=== PATIENT | male | born 1945 | race Caucasian/White ===

== ENCOUNTER 2020-10-05 12:37 | Inpatient (IN) ==
[2020-10-05] MEDS ORDERED: ALBUT/IPRATROP 3MG/0.5MG NEB 3 ML VIAL NEB STA (13:16)
[2020-10-05] MEDS ORDERED: SODIUM CHLORIDE 0.9% 1000ML 500 ML IV ONE (13:16)
[2020-10-05] MEDS ORDERED: methylPREDNISolone 125 MG/2 ML VIAL IV STA (13:16)
[2020-10-05 13:38] LABS: Basophils # (auto) 0.01 K/uL (0-0.2); Basophils % (auto) 0.1 %; Eosinophils # (auto) 0.03 K/uL (0-0.5); Eosinophils % (auto) 0.3 %; Hematocrit (blood only) 40.1 % (42-52); Hemoglobin 13.7 g/dL (14.0-18.0); Immature Granulocytes # (auto) 0.03 K/uL (0.00-0.02); Immature Granulocytes % (auto) 0.3 %; Lymphocytes # (auto) 0.56 K/uL (1.2-3.4); Lymphocytes % (auto) 5.5 %; Mean Corpuscular Hemoglobin 33.3 pg (25-34); Mean Corpuscular Hgb Conc 34.2 g/dL (32-36); Mean Corpuscular Volume 97.6 fL (80-100); Mean Platelet Volume 12.9 fL (7.4-10.4); Monocytes # (auto) 0.94 K/uL (0.11-0.59); Monocytes % (auto) 9.2 %; Neutrophils % (auto) 84.6 %; Platelet Count 144 K/uL (130-400); RDW Coefficient of Variation 14.4 % (11.5-14.5); RDW Standard Deviation 51.4 fL (36.4-46.3); Red Blood Count 4.11 M/uL (4.7-6.1); White Blood Count 10.27 K/uL (4.8-10.8)
[2020-10-05 13:43] LABS: Base Excess VBG 4.8 mEq/L; pH VBG 7.43 (7.36-7.41)
[2020-10-05 13:57] LABS: BUN Creatinine Ratio 22.7 (10-20); Blood Urea Nitrogen 24 mg/dl (7-18); Calcium 9.6 mg/dl (8.5-10.1); Carbon Dioxide 29 mmol/L (21-32); Chloride 102 mmol/L (98-107); Creatinine Clr Calc Pharmacy 55.2 ml/min; Est GFR (African American) 80.9; Est GFR (Non-African American) 69.8; Glucose 286 mg/dl (70-99); Lipase 80 U/L (73-393); Magnesium 1.8 mg/dl (1.8-2.4); Potassium 3.5 mmol/L (3.5-5.1); Sodium 137 mmol/L (136-145)
[2020-10-05 13:58] LABS: INR 5.4 (0.9-1.1); Partial Thromboplastin Ratio 1.8; Prothrombin Time 47.7 Seconds (9.0-12.0)
[2020-10-05 14:00] LABS: Partial Thromboplastin Time 47.3 Seconds (21.0-31.0)
[2020-10-05 14:04] LABS: NT Pro B Type Natriuretic Pept 794 pg/ml (0-900); Troponin I < 0.015 ng/ml (0-0.045)
--- NOTE | 2020-10-05 14:05 | XRay Report ---
XR chest 1V portable CLINICAL HISTORY: Shortness of breath. COMPARISON STUDY: Chest radiograph July 16, 2020. FINDINGS: Median sternotomy wires are noted as well as a left atrial occluder device. There is no pne umothorax. Severe emphysema is present. Cardiac size is normal. Moderate left mid and lower lung airs pace opacity is present. There is also mild right basilar opacity. These have developed since prior e xam. IMPRESSION: 1. Interval development of bilateral airspace opacities, greater within the left lung. The findings f avor multifocal pneumonia. Radiographic follow-up to ensure resolution is recommended. 2. Emphysema. ACT 112: Negative or not required by law. Electronically signed by: Raffy Crespo M.D. 10/05/2020 2:03 PM
[2020-10-05 14:36] LABS: Influenza A virus by PCR Negative (Neg); Influenza B virus by PCR Negative (Neg); RSV by PCR Negative (Neg); SARS CoV2 RNA(COVID-19) InHosp NEGATIVE (Negative)
--- NOTE | 2020-10-05 14:36 | Emergency Department Note ---
History of Present Illness General Chief complaint: Shortness of Breath/Dyspnea Stated complaint: PNEUMONIA; REF BY Time Seen by Provider: 10/05/20 13:10 Source: patient and family () History of Present Illness Provider complaint: Difficulty breathing Onset (ago): day(s) 5 Maximum Pain Intensity: 7 Associated symptoms: + confusion, + shortness of breath and + weakness; no chest pain, no cough, no fever/chills, no headaches and no nausea/vomiting 74-year-old male presents emergency department for difficulty breathing. states that he has been having difficulty breathing since Thursday. states that the patient is requiring more oxygen. She states he has been using 6 L as opposed to his normal 4 L. She states he has been increasingly weak confused and had an unsteady gait. The states he is also been having polyuria. Patient reports no dysuria or chest pain. No fevers. Patient has received his vaccinations for COVID-19. Patient is on prednisone. Patient was seen by his mascara molder today and referred to the emergency department. Home Medications Medication Instructions Recorded Confirmed Type glucagon (human recombinant) 1 mg 1 mg SQ Q20M PRN #2 ea 02/02/20 10/05/20 Rx solution for injection aspirin 81 mg tablet,delayed 81 mg PO DAILY 02/10/20 10/05/20 History release Dexcom G6 Laminating Press Operator #1 ea NS 02/23/20 10/05/20 Rx Dexcom G6 Sensor #3 ea NS 02/23/20 10/05/20 Rx Dexcom G6 Transmitter #1 ea NS 02/23/20 10/05/20 Rx duloxetine 60 mg capsule,delayed 60 mg PO DAILY #90 cap 05/07/20 10/05/20 Rx release ciclopirox 0.77 % topical cream 1 applic TOPICAL BID #90 g 06/01/20 10/05/20 Rx sodium chloride 7 % for 4 ml INHALATION BID #240 ml 07/13/20 10/05/20 Rx nebulization dutasteride 0.5 mg capsule 0.5 mg PO DAILY #90 cap 07/25/20 10/05/20 Rx nystatin 100,000 unit/gram topical 1 applic TOPICAL BID #30 g 07/26/20 10/05/20 Rx cream nystatin 100,000 unit/mL oral 5 ml PO TID #480 ml 07/26/20 10/05/20 Rx suspension azelastine 137 mcg (0.1 %) nasal 1 spray INTRANASAL BID #3 btl 08/30/20 10/05/20 Rx spray aerosol atorvastatin 20 mg tablet 20 mg PO DAILY #90 tab 09/14/20 10/05/20 Rx pregabalin 200 mg capsule 200 mg PO TID #90 cap 09/17/20 10/05/20 Rx albuterol sulfate 2.5 mg INHALATION Q4H PRN #180 ml 09/28/20 10/05/20 Rx albuterol sulfate [ProAir HFA] 2 puff INH Q6H PRN 10/05/20 10/05/20 History insulin degludec [Tresiba 12 unit SQ HS 10/05/20 10/05/20 History FlexTouch U-100] insulin lispro [Humalog KwikPen 0 unit SUBCUT TID 10/05/20 10/05/20 History Insulin] prednisone 10 mg PO .DAILY/UD 10/05/20 10/05/20 History warfarin 4 mg PO 5XWK 10/05/20 10/05/20 History warfarin 6 mg PO 2XWK 10/05/20 10/05/20 History Allergies Allergy/AdvReac Type Severity Reaction Status Date / Time acetaminophen Allergy Intermediate panic Verified 10/05/20 16:00 [From Darvocet-N] attack propoxyphene Allergy Intermediate panic Verified 10/05/20 16:01 [From Darvocet-N] attack latex AdvReac Intermediate Rash Verified 10/05/20 16:01 Past Med/Surg History Medical History Abnormal weight loss Aortic stenosis Ascending aortic aneurysm Bicuspid aortic valve CAD (coronary artery disease) Chronic respiratory failure with hypoxia, on home oxygen therapy COPD (chronic obstructive pulmonary disease) Diabetes type 1, uncontrolled Diabetic peripheral neuropathy associated with type 1 diabetes mellitus Dysesthesia Dyslipidemia Fungal skin infection Hypertension 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 Smoking Squamous cell carcinoma of right ear Venous insufficiency Surgical History H/O mechanical aortic valve replacement History of hernia repair 2007 S/P ascending aortic aneurysm repair S/P CABG x 1 Family History Sister Breast cancer 3 sisters Colorectal cancer Brother COPD (chronic obstructive pulmonary disease) half brother Prostate cancer half brother Father Heart disease Myocardial infarction Daughter Diabetes Denies family history of Ovarian cancer Lung cancer Social History Smoking Status: Current every day smoker Tobacco Type: Cigarettes Age Started Using Tobacco: 20; Cigarettes Per Day: 2 cigars per day and pipe; Second Hand Exposure: Yes (daughter); Hx Alcohol Use: No Hx Substance Use: No Preferred Language: Senegalese Communication Ability: Effective Visual Impairment: Limited Hearing Ability: Normal Platform Mill Supervisor Required: No marital status: Current Living Situation: Spouse and Family Current Living Situation Comment: spouse and daughter current occupational status: retired How many Children do You have: 1 Feels Safe at Home: Yes Childhood Exposure to Second-Hand Smoke: No caffeine: Yes (coffee) Dental Care, Regularly: No Physical Activity Frequency: 3-4 Times per Week Seatbelt Use: always Sunscreen Use: No Review of Systems A total of 10 systems reviewed and were otherwise negative Physical Exam Vital Signs Vital Signs - 24 hr 10/05/20 12:49 10/05/20 13:20 10/05/20 13:30 Temperature 37.3 C 37.7 C H Temperature Source Skin Oral Pulse Rate 116 H 106 H Pulse Rate [Apical] Pulse Rhythm Regular Pulse Rhythm [Apical] Pulse Strength [Apical] Respiratory Rate 26 H 26 H Respiratory Effort / Characteristics Spontaneous Respiratory Depth Respiratory Pattern Blood Pressure 96/55 L Blood Pressure [Left Arm] Blood Pressure Mean 68 Blood Pressure Mean [Left Arm] Blood Pressure Position Sitting Pulse Oximetry 94 99 Oxygen Delivery Method Nasal Cannula Nasal Cannula Oxygen Flow Rate 6 6 Sepsis Recent Fever Within 48 Hours No Sepsis New/Unexplained Change in Mental Status N/A Sepsis Action Taken by Nursing No Action Required 10/05/20 13:39 10/05/20 13:49 10/05/20 15:11 Temperature Temperature Source Pulse Rate Pulse Rate [Apical] 104 H 98 H Pulse Rhythm Pulse Rhythm [Apical] Regular Pulse Strength [Apical] Normal Respiratory Rate 24 22 Respiratory Effort / Characteristics Non-Labored Spontaneous Spontaneous Accessory Muscle Use Respiratory Depth Normal Respiratory Pattern Regular Blood Pressure Blood Pressure [Left Arm] 118/59 L Blood Pressure Mean Blood Pressure Mean [Left Arm] 78 Blood Pressure Position Pulse Oximetry 95 96 92 Oxygen Delivery Method Nasal Cannula Nasal Cannula Nasal Cannula Oxygen Flow Rate 6 6 6 Sepsis Recent Fever Within 48 Hours Sepsis New/Unexplained Change in Mental Status Sepsis Action Taken by Nursing Physical Exam GENERAL: He is oriented to person, place, and time. He appears well-developed and well-nourished. He does not appear distressed. HENT: Exam performed. - Head: Normocephalic and atraumatic. - Right Ear: External ear normal. No mastoid tenderness. - Left Ear: External ear normal. No mastoid tenderness. - Mouth/Throat: The oropharynx is clear and moist. No trismus in the jaw. No dental abscesses or uvula swelling. No oropharyngeal exudate or tonsillar abscesses. EYES: Conjunctivae and EOM are normal. Pupils are equal, round, and reactive to light. Right eye exhibits no discharge. Left eye exhibits no discharge. No scleral icterus. NECK: Normal range of motion. Neck supple. No JVD present. No spinous process tenderness present. No carotid bruit present. No rigidity. No tracheal deviation and normal range of motion present. No Brudzinski's sign and no Kernig's sign noted. CV: Normal rate, regular rhythm, normal heart sounds and intact distal pulses. There is no peripheral edema. Palpable radial pulses bue. PULM/CHEST: Expiratory wheezes and rhonchi bilaterally. ABD: The abdomen is soft. Bowel sounds are normal. He has no distension. No mass is present. There is no tenderness. There is no rebound, no guarding, no Sanchez's sign and no tenderness at McBurney's point. Rovsig negative. MUSC/SKEL: Normal range of motion. There is no peripheral edema, tenderness or deformity. LYMPH: No cervical adenopathy. NEURO: He is alert and oriented to person, place, and time. He has normal strength. No cranial nerve deficit or sensory deficit. Coordination and gait normal. GCS eye subscore is 4. GCS verbal subscore is 5. GCS motor subscore is 6. Cerebellar tests wnl. SKIN: Skin is warm and dry. He is not diaphoretic. PSYCH: He has a normal mood and affect. Behavior is normal. Judgment and thought content normal. Course Course 1310: The patient was evaluated in room B11. A complete history and physical exam was performed Cardiac monitoring: An order was placed for continuous cardiac monitoring. The monitor shows a rate of 105 with sinus tachycardia rhythm 1520: Vital signs stable on 6 L nasal cannula. Patient's labs are within normal limits with the exception of a therapeutic INR of 5.4. Imaging does show mu ltifocal pneumonia. Covid and influenza swab negative. CT of the head negative. Urinalysis is still pending. Patient will be treated for commune acquired pneumonia with Rocephin and azithromycin. Patient does state he feels better after receiving IV steroids and DuoNeb. Given the patient's weakness and difficulty breathing, he will be admitted to the hospital. Hospitalist team Dr Rach Tran will be notified. Administered Medications Discontinued Medications Albuterol (Albut/Ipratrop 3mg/0.5mg Neb 3 Ml Vial) 3 ml NEB NOW STA Stop: 10/05/20 13:17 Last Admin: 10/05/20 13:48 Dose: 3 ml Documented by: [id number] Azithromycin (Azithromycin 250 Mg Tab) 500 mg PO NOW ONE Stop: 10/05/20 14:59 Last Admin: 10/05/20 15:27 Dose: 500 mg Documented by: [id number] Sodium Chloride (Nss 1000ml) 500 mls @ 999 mls/hr IV .Q31M ONE Stop: 10/05/20 13:46 Last Infusion: 10/05/20 14:20 Dose: 0 mls/hr Documented by: [id number] Admin: 10/05/20 13:47 Dose: 999 mls/hr Documented by: [id number] Ceftriaxone Sodium (Rocephin) 1,000 mg in 50 mls @ 100 mls/hr IV NOW STA Stop: 10/05/20 15:27 Last Admin: 10/05/20 15:27 Dose: 100 mls/hr Documented by: [id number] Methylprednisolone (Methylprednisolone 125 Mg/2 Ml Vial) 125 mg IV NOW STA Stop: 10/05/20 13:17 Last Admin: 10/05/20 13:47 Dose: 125 mg Documented by: [id number] Medical Decision Making Laboratory Data Result diagrams: 10/05/20 13:20 10/05/20 13:20 Lab Results 10/05/20 10/05/20 10/05/20 Range/Units 13:20 13:20 13:20 WBC 10.27 (4.8-10.8) K/uL RBC 4.11 L (4.7-6.1) M/uL Hgb 13.7 L (14.0-18.0) g/dL Hct 40.1 L (42-52) % MCV 97.6 (80-100) fL MCH 33.3 (25-34) pg MCHC 34.2 (32-36) g/dL RDW Std Deviation 51.4 H (36.4-46.3) fL RDW Coeff of Randolph 14.4 (11.5-14.5) % Plt Count 144 (130-400) K/uL MPV 12.9 H (7.4-10.4) fL Immature Gran % (Auto) 0.3 % Neut % (Auto) 84.6 % Lymph % (Auto) 5.5 % [place] % (Auto) 9.2 % Eos % (Auto) 0.3 % Baso % (Auto) 0.1 % Neut # (Auto) 8.70 H (1.4-6.5) K/uL Lymph # (Auto) 0.56 L (1.2-3.4) K/uL [place] # (Auto) 0.94 H (0.11-0.59) K/uL Eos # (Auto) 0.03 (0-0.5) K/uL Baso # (Auto) 0.01 (0-0.2) K/uL Immature Gran # (Auto) 0.03 H (0.00-0.02) K/uL PT 47.7 H (9.0-12.0) Seconds INR 5.4 H (0.9-1.1) APTT 47.3 H* (21.0-31.0) Seconds PTT Ratio 1.8 VBG pH (7.36-7.41) VBG pCO2 (38-50) mmHg VBG pO2 mmHg VBG HCO3 mmol/L VBG O2 Saturation % VBG Base Excess mEq/L Barometric Pressure mm/Hg Sodium 137 (136-145) mmol/L Potassium 3.5 (3.5-5.1) mmol/L Chloride 102 (98-107) mmol/L Carbon Dioxide 29 (21-32) mmol/L Anion Gap 5.0 (3-11) BUN 24 H (7-18) mg/dl Creatinine 1.06 (0.6-1.4) mg/dl Est Cr Clr Drug Dosing 55.2 ml/min Est GFR ( Amer) 80.9 Est GFR (Non-Af Amer) 69.8 BUN/Creatinine Ratio 22.7 H (10-20) Glucose 286 H (70-99) mg/dl Lactate (0.4-2.0) mmol/L Calcium 9.6 (8.5-10.1) mg/dl Magnesium 1.8 (1.8-2.4) mg/dl Troponin I < 0.015 (0-0.045) ng/ml NT-Pro-B Natriuret Pep 794 (0-900) pg/ml Lipase 80 (73-393) U/L COVID-19 Eval Order SARS-CoV-2 (PCR) (Negative) Influenza Type A (PCR) (Neg) Influenza Type B (PCR) (Neg) RSV (RT-PCR) (Neg) 10/05/20 10/05/20 10/05/20 Range/Units 13:20 13:24 13:24 WBC (4.8-10.8) K/uL RBC (4.7-6.1) M/uL Hgb (14.0-18.0) g/dL Hct (42-52) % MCV (80-100) fL MCH (25-34) pg MCHC (32-36) g/dL RDW Std Deviation (36.4-46.3) fL RDW Coeff of Randolph (11.5-14.5) % Plt Count (130-400) K/uL MPV (7.4-10.4) fL Immature Gran % (Auto) % Neut % (Auto) % Lymph % (Auto) % [place] % (Auto) % Eos % (Auto) % Baso % (Auto) % Neut # (Auto) (1.4-6.5) K/uL Lymph # (Auto) (1.2-3.4) K/uL [place] # (Auto) (0.11-0.59) K/uL Eos # (Auto) (0-0.5) K/uL Baso # (Auto) (0-0.2) K/uL Immature Gran # (Auto) (0.00-0.02) K/uL PT (9.0-12.0) Seconds INR (0.9-1.1) APTT (21.0-31.0) Seconds PTT Ratio VBG pH 7.43 H (7.36-7.41) VBG pCO2 47 (38-50) mmHg VBG pO2 51 mmHg VBG HCO3 30 mmol/L VBG O2 Saturation 88.0 % VBG Base Excess 4.8 mEq/L Barometric Pressure 732.5 mm/Hg Sodium (136-145) mmol/L Potassium (3.5-5.1) mmol/L Chloride (98-107) mmol/L Carbon Dioxide (21-32) mmol/L Anion Gap (3-11) BUN (7-18) mg/dl Creatinine (0.6-1.4) mg/dl Est Cr Clr Drug Dosing ml/min Est GFR ( Amer) Est GFR (Non-Af Amer) BUN/Creatinine Ratio (10-20) Glucose (70-99) mg/dl Lactate (0.4-2.0) mmol/L Calcium (8.5-10.1) mg/dl Magnesium (1.8-2.4) mg/dl Troponin I (0-0.045) ng/ml NT-Pro-B Natriuret Pep (0-900) pg/ml Lipase (73-393) U/L COVID-19 Eval Order CovFluRsv at [facility] SARS-CoV-2 (PCR) NEGATIVE (Negative) Influenza Type A (PCR) Negative (Neg) Influenza Type B (PCR) Negative (Neg) RSV (RT-PCR) Negative (Neg) 10/05/20 Range/Units 14:38 WBC (4.8-10.8) K/uL RBC (4.7-6.1) M/uL Hgb (14.0-18.0) g/dL Hct (42-52) % MCV (80-100) fL MCH (25-34) pg MCHC (32-36) g/dL RDW Std Deviation (36.4-46.3) fL RDW Coeff of Randolph (11.5-14.5) % Plt Count (130-400) K/uL MPV (7.4-10.4) fL Immature Gran % (Auto) % Neut % (Auto) % Lymph % (Auto) % [place] % (Auto) % Eos % (Auto) % Baso % (Auto) % Neut # (Auto) (1.4-6.5) K/uL Lymph # (Auto) (1.2-3.4) K/uL [place] # (Auto) (0.11-0.59) K/uL Eos # (Auto) (0-0.5) K/uL Baso # (Auto) (0-0.2) K/uL Immature Gran # (Auto) (0.00-0.02) K/uL PT (9.0-12.0) Seconds INR (0.9-1.1) APTT (21.0-31.0) Seconds PTT Ratio VBG pH (7.36-7.41) VBG pCO2 (38-50) mmHg VBG pO2 mmHg VBG HCO3 mmol/L VBG O2 Saturation % VBG Base Excess mEq/L Barometric Pressure mm/Hg Sodium (136-145) mmol/L Potassium (3.5-5.1) mmol/L Chloride (98-107) mmol/L Carbon Dioxide (21-32) mmol/L Anion Gap (3-11) BUN (7-18) mg/dl Creatinine (0.6-1.4) mg/dl Est Cr Clr Drug Dosing ml/min Est GFR ( Amer) Est GFR (Non-Af Amer) BUN/Creatinine Ratio (10-20) Glucose (70-99) mg/dl Lactate 2.2 H* (0.4-2.0) mmol/L Calcium (8.5-10.1) mg/dl Magnesium (1.8-2.4) mg/dl Troponin I (0-0.045) ng/ml NT-Pro-B Natriuret Pep (0-900) pg/ml Lipase (73-393) U/L COVID-19 Eval Order SARS-CoV-2 (PCR) (Negative) Influenza Type A (PCR) (Neg) Influenza Type B (PCR) (Neg) RSV (RT-PCR) (Neg) Imaging Data Radiologist's Impression: Chest X-Ray 10/05/20 13:16 XR chest 1V portable CLINICAL HISTORY: Shortness of breath. COMPARISON STUDY: Chest radiograph July 16, 2020. FINDINGS: Median sternotomy wires are noted as well as a left atrial occluder device. There is no pneumothorax. Severe emphysema is present. Cardiac size is normal. Moderate left mid and lower lung airspace opacity is present. There is also mild right basilar opacity. These have developed since prior exam. IMPRESSION: 1. Interval development of bilateral airspace opacities, greater within the left lung. The findings favor multifocal pneumonia. Radiographic follow-up to ensure resolution is recommended. 2. Emphysema. ACT 112: Negative or not required by law. Electronically signed by: Raffy Crespo M.D. 10/05/2020 2:[address] 10/05/20 13:[address] DOSE: 469.65 mGycm HISTORY: Weakness. Altered mental status. TECHNIQUE: Multiaxial CT images of the head were performed without the use of intravenous contrast. Automated exposure control was utilized for this study. A dose lowering technique was utilized adhering to the principles of ALARA. Comparison: Brain MRI 06/07/2020. Findings: Small fluid level within the left maxillary sinus. The mastoid air cells are clear. The calvarium and skull base are intact. There is no mass, hematoma, midline shift, acute infarct. White matter hypodensity is nonspecific but suggestive of microvascular ischemic change. The ventricles and sulci demonstrate mild age-related involutional changes. 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 Impression: No acute intracranial abnormality. Atrophy and microvascular ischemic changes. Small fluid level within the left maxillary sinus likely representing acute sinusitis. ACT 112: Negative or not required by law. Electronically signed by: Farhan Michaels M.D. 10/05/2020 3:10 PM ECG Data Indication: + SOB/dyspnea Rate (beats per minute): 103 Rhythm: + normal sinus ECG Intervals/blocks: + Normal QRS, + Normal NC and + Normal QT-c ECG ST segments: + Normal ST segments MDM Narrative 1310: The patient was evaluated in room B11. A complete history and physical exam was performed Cardiac monitoring: An order was placed for continuous cardiac monitoring. The monitor shows a rate of 105 with sinus tachycardia rhythm 1520: Vital signs stable on 6 L nasal cannula. Patient's labs are within normal limits with the exception of a therapeutic INR of 5.4. Imaging does show multifocal pneumonia. Covid and influenza swab negative. CT of the head negative. Urinalysis is still pending. Patient will be treated for commune acquired pneumonia with Rocephin and azithromycin. Patient does state he feels better after receiving IV steroids and DuoNeb. Given the patient's weakness and difficulty breathing, he will be admitted to the hospital. Hospitalist team Dr Rach Tran will be notified. Impression & Plan Multifocal pneumonia, COPD (chronic obstructive pulmonary disease) Discharge Plan Visit Data Chief Complaint: Shortness of Breath/Dyspnea Stated Complaint: PNEUMONIA; REF BY DR COTA Provider: Jacky Murphy Discharge Problem: Multifocal pneumonia, COPD (chronic obstructive pulmonary disease) Patient Disposition: Being Evaluated by Hospitalist Forms Stand Alone Forms: [facility] Prescriptions Prescriptions: No Action Glucagon Emergency Kit (human) 1 mg recon soln 1 mg SQ Q20M PRN (Reason: hypoglycemia) Qty: 2 RF: 2 duloxetine [Cymbalta] 60 mg capsule,delayed release(DR/EC) 60 mg PO DAILY Qty: 90 RF: 1 ciclopirox 0.77 % cream 1 applic topical BID Qty: 90 RF: 0 nystatin 100,000 unit/mL suspension 5 ml PO TID Qty: 480 RF: 0 nystatin 100,000 unit/gram cream 1 applic topical BID Qty: 30 RF: 5 azelastine 137 mcg (0.1 %) aerosol,spray 1 spray intranasal BID Qty: 3 RF: 1 atorvastatin 20 mg tablet 20 mg PO DAILY Qty: 90 RF: 2 pregabalin [Lyrica] 200 mg capsule 200 mg PO TID Qty: 90 RF: 0 aspirin [Adult Low Dose Aspirin] 81 mg tablet,delayed release (DR/EC) 81 mg PO DAILY RF: 0 (DME) Dexcom G6 Laminating Press Operator Misc See Rx Instructions .MEDSUPPLY Qty: 1 RF: 0 (DME) Dexcom G6 Sensor Device See Rx Instructions .MEDSUPPLY Qty: 3 RF: 11 (DME) Dexcom G6 Transmitter Device See Rx Instructions .MEDSUPPLY Qty: 1 RF: 3 dutasteride 0.5 mg capsule 0.5 mg PO DAILY Qty: 90 RF: 3 bjlgzsenxl-hzqidude-ichrbmwris [Breztri Aerosphere] 160-9-4.8 mcg/actuation HFA aerosol inhaler 0 inh inhalation .UD RF: 0 sodium chloride 7 % solution for nebulization 4 ml inhalation BID Qty: 240 RF: 5 albuterol sulfate 2.5 mg /3 mL (0.083 %) solution for nebulization 2.5 mg inhalation Q4H PRN (Reason: shortness of breath or wheezing) Qty: 180 RF: 3 albuterol sulfate [ProAir HFA] 90 mcg/actuation HFA aerosol inhaler 2 puff INH Q6H PRN (Reason: shortness of breath or wheezing) RF: 0 warfarin 4 mg tablet 4 mg PO 5XWK RF: 0 warfarin 6 mg Tablet 6 mg PO 2XWK RF: 0 Tresiba FlexTouch U-100 100 unit/mL (3 mL) insulin pen 12 unit SQ HS RF: 0 insulin lispro [Humalog KwikPen Insulin] 100 unit/mL insulin pen 0 unit subcut TID RF: 0 prednisone 10 mg tablet 10 mg PO .DAILY/UD RF: 0 Referrals Referrals: Rajeev Alicea DO [Primary Care Provider] - Discharge Problem: COPD (chronic obstructive pulmonary disease) Qualifiers: COPD type: COPD with acute exacerbation Qualified Code(s): J44.1 - Chronic obstructive pulmonary disease with (acute) exacerbation
[2020-10-05] MEDS ORDERED: cefTRIAXone SODIUM 1,000 MG/50 ML BAG IV STA (14:58)
[2020-10-05] MEDS ORDERED: AZITHROMYCIN 250 MG TAB PO ONE (14:58)
--- NOTE | 2020-10-05 15:11 | CT Scan Report ---
HEAD CT NONCONTRAST CT DOSE: 469.65 mGycm HISTORY: Weakness. Altered mental status. TECHNIQUE: Multiaxial CT images of the head were performed without the use of intravenous contrast. A utomated exposure control was utilized for this study. A dose lowering technique was utilized adheri ng to the principles of ALARA. Comparison: Brain MRI 06/07/2020. Findings: Small fluid level within the left maxillary sinus. The mastoid air cells are clear. The channing varium and skull base are intact. There is no mass, hematoma, midline shift, acute infarct. White mat ter hypodensity is nonspecific but suggestive of microvascular ischemic change. The ventricles and gupta lci demonstrate mild age-related involutional changes. Old small infarcts seen within the right front al lobe and right cerebellar hemisphere. Impression: No acute intracranial abnormality. Atrophy and microvascular ischemic changes. Small fluid level with in the left maxillary sinus likely representing acute sinusitis. ACT 112: Negative or not required by law. Electronically signed by: Farhan Michaels M.D. 10/05/2020 3:10 PM
--- NOTE | 2020-10-05 16:52 | History & Physical Report ---
Date of Service October 05, 2020 Assessment & Plan (1) Multifocal pneumonia: Procal mildly elevated suggestive of bacterial etiology. COVID negative on 09/28; then COVID negative again today. Had 2-vaccine COVID shots as well. Flu/RSV negative. Rocephin/zithromax. No recent hospital admission; defer on gram negative coverage for now but low threshold for such if any worsening given his advanced COPD. Follow blood cx's. NC O2 support. Mucolytics, continue usual inhalers, etc. Pneumonia is b/l lower lobes. Speech is somewhat slurry/garbled. To be complete will ask speech to see to ensure no aspiration/dysphagia. (2) Acute maxillary sinusitis: as seen on head CT. rocephin will cover this well. (3) Acute and chronic respiratory failure with hypoxia: On home O2 chronically via nasal cannula. Mild increase in O2 requirement today with increased work of breathing. acute component 2nd to pneumonia as well as mild COPD exacerbation. (4) COPD (chronic obstructive pulmonary disease): with mild COPD exacerbation. on chronic prednisone 10mg daily. follows with Primo BARRAZA. increase prednisone to 40mg daily then taper as he improves. cont usual inhalers, NC O2, and scheduled albuterol nebs. mucolytics, NaCl nebs (takes these chronically), etc. (5) H/O mechanical aortic valve replacement: INR goal 2.5 to 3.5 supratherapeutic INR today likely due to poor diet last few days hold coumadin tonight daily INR while hospitalized sharp mech sound on exam today (6) CAD (coronary artery disease): noted no ischemic symptoms at this time cont asa, statin uncertain why he is not on beta merline (due to COPD??) (7) Hypertension: controlled cont outpatient meds (8) Diabetes type 1, uncontrolled: anticipate significant lability and [id number] BSGs due to steroids and stress pharmacy glycemic consult placed lantus 15 units HS novolog correction/carb coverage a1c in 04/2020 was >10% (9) Dyslipidemia: cont statin (10) BPH NOS w ur obs/LUTS: substitute finasteride for dutasteride (11) Supratherapeutic INR: hold coumadin INR in am INR goal 2.5 to 3.5 [address] [facility] AV status (12) DVT prophylaxis: coumadin left message for pt's this evening on answering machine place on telemetry History of Present Illness Chief Complaint: worsening dyspnea, fatigue, cough Primary Care Provider: Rajeev Alicea DO 74yo male with chronic hypoxic respiratory failure on home O2 4 liters, h/o mechanical aortic valve, CAD, COPD, T1DM - presents with at least 1 week of weakness, cough, shortness of breath above baseline, muscle aches, and extreme fatigue. "This has hit me like a ton of bricks." No loss of taste/smell. No sick contacts. No obvious COVID contacts. Has been vaccinated against COVID - received both doses. Lives with and daughter in [place]. Cough is productive of yellow/brown sputum. Denies chest pain, abd pain, nausea, vomiting, or diarrhea. He was prescribed prednisone a few days ago by Primo BARRAZA for his COPD flare. Last dose - yesterday. Has occasional coughing with eating/drinking ("not very often"). Allergies Allergy/AdvReac Type Severity Reaction Status Date / Time latex AdvReac Intermediate Rash Verified 10/05/20 16:01 propoxyphene AdvReac Intermediate panic Verified 10/05/20 21:40 [From Tiffanie-Janice] attack Home Medications Medication Instructions Recorded Confirmed Type glucagon (human recombinant) 1 mg 1 mg SQ Q20M PRN #2 ea 02/02/20 10/05/20 Rx solution for injection aspirin 81 mg tablet,delayed 81 mg PO DAILY 02/10/20 10/05/20 History release Dexcom G6 Signal Maintainer #1 ea NS 02/23/20 10/05/20 Rx Dexcom G6 Sensor #3 ea NS 02/23/20 10/05/20 Rx Dexcom G6 Transmitter #1 ea NS 02/23/20 10/05/20 Rx duloxetine 60 mg capsule,delayed 60 mg PO DAILY #90 cap 05/07/20 10/05/20 Rx release ciclopirox 0.77 % topical cream 1 applic TOPICAL BID #90 g 06/01/20 10/05/20 Rx sodium chloride 7 % for 4 ml INHALATION BID #240 ml 07/13/20 10/05/20 Rx nebulization dutasteride 0.5 mg capsule 0.5 mg PO DAILY #90 cap 07/25/20 10/05/20 Rx nystatin 100,000 unit/gram topical 1 applic TOPICAL BID #30 g 07/26/20 10/05/20 Rx cream nystatin 100,000 unit/mL oral 5 ml PO TID #480 ml 07/26/20 10/05/20 Rx suspension azelastine 137 mcg (0.1 %) nasal 1 spray INTRANASAL BID #3 btl 08/30/20 10/05/20 Rx spray aerosol atorvastatin 20 mg tablet 20 mg PO DAILY #90 tab 09/14/20 10/05/20 Rx pregabalin 200 mg capsule 200 mg PO TID #90 cap 09/17/20 10/05/20 Rx albuterol sulfate 2.5 mg INHALATION Q4H PRN #180 ml 09/28/20 10/05/20 Rx albuterol sulfate [ProAir HFA] 2 puff INH Q6H PRN 10/05/20 10/05/20 History insulin degludec [Tresiba 12 unit SQ HS 10/05/20 10/05/20 History FlexTouch U-100] insulin lispro [Humalog KwikPen 0 unit SUBCUT TID 10/05/20 10/05/20 History Insulin] prednisone 10 mg PO .DAILY/UD 10/05/20 10/05/20 History warfarin 4 mg PO 5XWK 10/05/20 10/05/20 History warfarin 6 mg PO 2XWK 10/05/20 10/05/20 History Past Med/Surg History Medical History (Updated 10/06/20 @ 07:22 by Ck Loyd) Abnormal weight loss Aortic stenosis Ascending aortic aneurysm Bicuspid aortic valve CAD (coronary artery disease) Chronic respiratory failure with hypoxia Chronic respiratory failure with hypoxia, on home oxygen therapy COPD (chronic obstructive pulmonary disease) Diabetes type 1, uncontrolled Diabetic peripheral neuropathy associated with type 1 diabetes mellitus Dysesthesia Dyslipidemia Fungal skin infection Hypertension 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 Smoking Squamous cell carcinoma of right ear Venous insufficiency Surgical History (Updated 10/05/20 @ 17:06 by Ck Loyd) H/O bilateral cataract extraction H/O mechanical aortic valve replacement History of hernia repair 2007 S/P ascending aortic aneurysm repair S/P CABG x 1 Family History Sister Breast cancer 3 sisters Colorectal cancer Brother COPD (chronic obstructive pulmonary disease) half brother Prostate cancer half brother Father Heart disease Myocardial infarction Daughter Diabetes Denies family history of Ovarian cancer Lung cancer Social History (Updated 10/05/20 @ 17:05 by Ck Loyd) Smoking Status: Current every day smoker Tobacco Type: Cigarettes Age Started Using Tobacco: 20; Cigarettes Per Day: 2 cigars per day and pipe; Second Hand Exposure: Yes (daughter); Hx Alcohol Use: No Hx Substance Use: No Preferred Language: Micronesian Communication Ability: Effective Visual Impairment: Limited Hearing Ability: Normal Gang Tailer Required: No Beliefs That Will Affect Care: None marital status: Current Living Situation: Spouse Current Living Situation Comment: spouse and daughter in [place] current occupational status: retired current occupation: [employer] How many Children do You have: 1 Other Information That Helps Us Care for You: No Feels Safe at Home: Yes Safety Concerns: Feels Safe At This Time Childhood Exposure to Second-Hand Smoke: No caffeine: Yes (coffee) Dental Care, Regularly: No Physical Activity Frequency: 3-4 Times per Week Seatbelt Use: always Sunscreen Use: No Assistive Devices: None Review of Systems Constitutional: + chills, + sweats, + body aches, + fatigue, + weakness, + anorexia and + weight loss (6 pounds); no fever Eyes: + worsening vision (blurry - due to high sugars) Ear, Nose, Mouth, Throat: + nasal congestion, + sore throat and + dysphagia (occasional ) Respiratory: + cough, + chest congestion, + dyspnea, + dyspnea on exertion, + sputum production and + wheezing; no hemoptysis Cardiovascular: no chest pain Gastrointestinal: no abdominal pain, no nausea, no vomiting and no diarrhea/loose stools Genitourinary: no difficulty urinating Musculoskeletal: + body aches Integumentary: + rash Neurologic: + paresthesia (neuropathy - hands/feet ) Psychiatric: no depression Endocrine: diabetic since 1998 - some highs recently with prednisone Hematologic / Lymphatic: + easy bruising Physical Exam Constitutional: no acute distress and no altered mental status dysmorphic appearance - protruding ears, hypotelorism, etc Eyes: + anicteric sclerae and PERRL ENMT: external ear and nose normal, oropharynx normal Neck: trachea midline, no thyromegaly Respiratory: + cough; no respiratory distress Auscultation: + crackles (B/l bases) and + wheezes Cardiovascular: Rate/Rhythm: regular rate and regular rhythm Heart Sounds: normal S1, normal S2 (Mechanical valve closure sound) and + murmur Vessels: posterior tibial pulses present and dorsalis pedis pulses present; no JVD Extremities: + edema (<1+ b/l ) Gastrointestinal (Abdomen): normal bowel sounds, soft, nontender, no hepatosplenomegaly Musculoskeletal: Extremities: + clubbing Skin: no rashes, warm and dry Neurologic: deep tendon reflexes 2+ bilaterally and moves all extremities Speech / Cognition: + abnormal speech (Thick, slightly slurry) Psychiatric: A+Ox3, euthymic affect Lymphatic: no cervical lymphadenopathy Results & Data Results & Data ([facility]) Vital Signs (Past 12 Hours) Vital Signs Temp Pulse Pulse Resp BP BP Pulse Ox 10/05/20 15:11 98 H 22 118/59 L 92 10/05/20 13:49 104 H 24 96 10/05/20 13:39 95 10/05/20 13:30 37.7 C H 10/05/20 13:20 106 H 26 H 99 10/05/20 12:49 37.3 C 116 H 26 H 96/55 L 94 Laboratory Results Laboratory Results - last 24 hr 10/05/20 10/05/20 10/05/20 13:20 13:20 13:20 WBC 10.27 RBC 4.11 L Hgb 13.7 L Hct 40.1 L MCV 97.6 MCH 33.3 MCHC 34.2 RDW Std Deviation 51.4 H RDW Coeff of [place] 14.4 Plt Count 144 MPV 12.9 H Immature Gran % (Auto) 0.3 Neut % (Auto) 84.6 Lymph % (Auto) 5.5 Petroleum % (Auto) 9.2 Eos % (Auto) 0.3 Baso % (Auto) 0.1 Neut # (Auto) 8.70 H Lymph # (Auto) 0.56 L Petroleum # (Auto) 0.94 H Eos # (Auto) 0.03 Baso # (Auto) 0.01 Immature Gran # (Auto) 0.03 H PT 47.7 H INR 5.4 H APTT 47.3 H* PTT Ratio 1.8 VBG pH VBG pCO2 VBG pO2 VBG HCO3 VBG O2 Saturation VBG Base Excess Barometric Pressure Sodium 137 Potassium 3.5 Chloride 102 Carbon Dioxide 29 Anion Gap 5.0 BUN 24 H Creatinine 1.06 Est Cr Clr Drug Dosing 55.2 Est GFR ( Amer) 80.9 Est GFR (Non-Af Amer) 69.8 BUN/Creatinine Ratio 22.7 H Glucose 286 H POC Glucose Lactate Calcium 9.6 Magnesium 1.8 Troponin I < 0.015 NT-Pro-B Natriuret Pep 794 Lipase 80 Procalcitonin Urine Color Urine Appearance Urine pH Ur Specific [place] Urine Protein Urine Glucose (UA) Urine Ketones Urine Blood Urine Nitrite Urine Bilirubin Urine Urobilinogen Ur Leukocyte Esterase Urine WBC (Auto) Urine RBC (Auto) U Hyaline Cast (Auto) U Epithel Cells (Auto) Urine Bacteria (Auto) COVID-19 Eval Order SARS-CoV-2 (PCR) Influenza Type A (PCR) Influenza Type B (PCR) RSV (RT-PCR) 10/05/20 10/05/20 10/05/20 13:20 13:24 13:24 WBC RBC Hgb Hct MCV MCH MCHC RDW Std Deviation RDW Coeff of [place] Plt Count MPV Immature Gran % (Auto) Neut % (Auto) Lymph % (Auto) Petroleum % (Auto) Eos % (Auto) Baso % (Auto) Neut # (Auto) Lymph # (Auto) Petroleum # (Auto) Eos # (Auto) Baso # (Auto) Immature Gran # (Auto) PT INR APTT PTT Ratio VBG pH 7.43 H VBG pCO2 47 VBG pO2 51 VBG HCO3 30 VBG O2 Saturation 88.0 VBG Base Excess 4.8 Barometric Pressure 732.5 Sodium Potassium Chloride Carbon Dioxide Anion Gap BUN Creatinine Est Cr Clr Drug Dosing Est GFR ( Amer) Est GFR (Non-Af Amer) BUN/Creatinine Ratio Glucose POC Glucose Lactate Calcium Magnesium Troponin I NT-Pro-B Natriuret Pep Lipase Procalcitonin Urine Color Urine Appearance Urine pH Ur Specific [place] Urine Protein Urine Glucose (UA) Urine Ketones Urine Blood Urine Nitrite Urine Bilirubin Urine Urobilinogen Ur Leukocyte Esterase Urine WBC (Auto) Urine RBC (Auto) U Hyaline Cast (Auto) U Epithel Cells (Auto) Urine Bacteria (Auto) COVID-19 Eval Order CovFluRsv at [facility] SARS-CoV-2 (PCR) NEGATIVE Influenza Type A (PCR) Negative Influenza Type B (PCR) Negative RSV (RT-PCR) Negative 10/05/20 10/05/20 10/05/20 14:38 16:17 16:57 WBC RBC Hgb Hct MCV MCH MCHC RDW Std Deviation RDW Coeff of [place] Plt Count MPV Immature Gran % (Auto) Neut % (Auto) Lymph % (Auto) Petroleum % (Auto) Eos % (Auto) Baso % (Auto) Neut # (Auto) Lymph # (Auto) Petroleum # (Auto) Eos # (Auto) Baso # (Auto) Immature Gran # (Auto) PT INR APTT PTT Ratio VBG pH VBG pCO2 VBG pO2 VBG HCO3 VBG O2 Saturation VBG Base Excess Barometric Pressure Sodium Potassium Chloride Carbon Dioxide Anion Gap BUN Creatinine Est Cr Clr Drug Dosing Est GFR ( Amer) Est GFR (Non-Af Amer) BUN/Creatinine Ratio Glucose POC Glucose Lactate 2.2 H* 1.2 Calcium Magnesium Troponin I NT-Pro-B Natriuret Pep Lipase Procalcitonin Urine Color Dark Yellow Urine Appearance Clear Urine pH 6.5 Ur Specific [place] 1.029 Urine Protein 1+ H Urine Glucose (UA) 2+ H Urine Ketones Trace H Urine Blood Negative Urine Nitrite Negative Urine Bilirubin Negative Urine Urobilinogen Negative Ur Leukocyte Esterase Negative Urine WBC (Auto) 1-5 Urine RBC (Auto) 0-4 U Hyaline Cast (Auto) 1-5 U Epithel Cells (Auto) 10-20 H Urine Bacteria (Auto) Negative COVID-19 Eval Order SARS-CoV-2 (PCR) Influenza Type A (PCR) Influenza Type B (PCR) RSV (RT-PCR) 10/05/20 10/05/20 10/05/20 16:57 22:21 22:23 WBC RBC Hgb Hct MCV MCH MCHC RDW Std Deviation RDW Coeff of [place] Plt Count MPV Immature Gran % (Auto) Neut % (Auto) Lymph % (Auto) Petroleum % (Auto) Eos % (Auto) Baso % (Auto) Neut # (Auto) Lymph # (Auto) Petroleum # (Auto) Eos # (Auto) Baso # (Auto) Immature Gran # (Auto) PT INR APTT PTT Ratio VBG pH VBG pCO2 VBG pO2 VBG HCO3 VBG O2 Saturation VBG Base Excess Barometric Pressure Sodium Potassium Chloride Carbon Dioxide Anion Gap BUN Creatinine Est Cr Clr Drug Dosing Est GFR ( Amer) Est GFR (Non-Af Amer) BUN/Creatinine Ratio Glucose POC Glucose 445 H* 470 H* Lactate Calcium Magnesium Troponin I NT-Pro-B Natriuret Pep Lipase Procalcitonin 1.31 H Urine Color Urine Appearance Urine pH Ur Specific [place] Urine Protein Urine Glucose (UA) Urine Ketones Urine Blood Urine Nitrite Urine Bilirubin Urine Urobilinogen Ur Leukocyte Esterase Urine WBC (Auto) Urine RBC (Auto) U Hyaline Cast (Auto) U Epithel Cells (Auto) Urine Bacteria (Auto) COVID-19 Eval Order SARS-CoV-2 (PCR) Influenza Type A (PCR) Influenza Type B (PCR) RSV (RT-PCR) 10/06/20 10/06/20 10/06/20 00:57 04:04 06:16 WBC 7.74 RBC 3.68 L Hgb 12.0 L Hct 35.9 L MCV 97.6 MCH 32.6 MCHC 33.4 RDW Std Deviation 50.9 H RDW Coeff of [place] 14.3 Plt Count 142 MPV 13.0 H Immature Gran % (Auto) Neut % (Auto) Lymph % (Auto) Petroleum % (Auto) Eos % (Auto) Baso % (Auto) Neut # (Auto) Lymph # (Auto) Petroleum # (Auto) Eos # (Auto) Baso # (Auto) Immature Gran # (Auto) PT INR APTT PTT Ratio VBG pH VBG pCO2 VBG pO2 VBG HCO3 VBG O2 Saturation VBG Base Excess Barometric Pressure Sodium Potassium Chloride Carbon Dioxide Anion Gap BUN Creatinine Est Cr Clr Drug Dosing Est GFR ( Amer) Est GFR (Non-Af Amer) BUN/Creatinine Ratio Glucose POC Glucose 386 H* 293 H Lactate Calcium Magnesium Troponin I NT-Pro-B Natriuret Pep Lipase Procalcitonin Urine Color Urine Appearance Urine pH Ur Specific [place] Urine Protein Urine Glucose (UA) Urine Ketones Urine Blood Urine Nitrite Urine Bilirubin Urine Urobilinogen Ur Leukocyte Esterase Urine WBC (Auto) Urine RBC (Auto) U Hyaline Cast (Auto) U Epithel Cells (Auto) Urine Bacteria (Auto) COVID-19 Eval Order SARS-CoV-2 (PCR) Influenza Type A (PCR) Influenza Type B (PCR) RSV (RT-PCR) 10/06/20 10/06/20 06:16 06:16 WBC RBC Hgb Hct MCV MCH MCHC RDW Std Deviation RDW Coeff of [place] Plt Count MPV Immature Gran % (Auto) Neut % (Auto) Lymph % (Auto) Petroleum % (Auto) Eos % (Auto) Baso % (Auto) Neut # (Auto) Lymph # (Auto) Petroleum # (Auto) Eos # (Auto) Baso # (Auto) Immature Gran # (Auto) PT 29.3 H INR 3.2 H APTT PTT Ratio VBG pH VBG pCO2 VBG pO2 VBG HCO3 VBG O2 Saturation VBG Base Excess Barometric Pressure Sodium Pending Potassium Pending Chloride Pending Carbon Dioxide Pending Anion Gap Pending BUN Pending Creatinine Pending Est Cr Clr Drug Dosing Pending Est GFR ( Amer) Pending Est GFR (Non-Af Amer) Pending BUN/Creatinine Ratio Pending Glucose Pending POC Glucose Lactate Calcium Pending Magnesium Troponin I NT-Pro-B Natriuret Pep Lipase Procalcitonin Urine Color Urine Appearance Urine pH Ur Specific [place] Urine Protein Urine Glucose (UA) Urine Ketones Urine Blood Urine Nitrite Urine Bilirubin Urine Urobilinogen Ur Leukocyte Esterase Urine WBC (Auto) Urine RBC (Auto) U Hyaline Cast (Auto) U Epithel Cells (Auto) Urine Bacteria (Auto) COVID-19 Eval Order SARS-CoV-2 (PCR) Influenza Type A (PCR) Influenza Type B (PCR) RSV (RT-PCR) Diagnostic Findings Chest X-Ray 10/05/20 13:16 XR chest 1V portable CLINICAL HISTORY: Shortness of breath. COMPARISON STUDY: Chest radiograph July 16, 2020. FINDINGS: Median sternotomy wires are noted as well as a left atrial occluder device. There is no pneumothorax. Severe emphysema is present. Cardiac size is normal. Moderate left mid and lower lung airspace opacity is present. There is also mild right basilar opacity. These have developed since prior exam. IMPRESSION: 1. Interval development of bilateral airspace opacities, greater within the left lung. The findings favor multifocal pneumonia. Radiographic follow-up to ensure resolution is recommended. 2. Emphysema. ACT 112: Negative or not required by law. Electronically signed by: Raffy Crespo M.D. 10/05/2020 2:[address] 10/05/20 13:[address] DOSE: 469.65 mGycm HISTORY: Weakness. Altered mental status. TECHNIQUE: Multiaxial CT images of the head were performed without the use of intravenous contrast. Automated exposure control was utilized for this study. A dose lowering technique was utilized adhering to the principles of ALARA. Comparison: Brain MRI 06/07/2020. Findings: Small fluid level within the left maxillary sinus. The mastoid air cells are clear. The calvarium and skull base are intact. There is no mass, hematoma, midline shift, acute infarct. White matter hypodensity is nonspecific but suggestive of microvascular ischemic change. The ventricles and sulci demonstrate mild age-related involutional changes. 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 Impression: No acute intracranial abnormality. Atrophy and microvascular ischemic changes. Small fluid level within the left maxillary sinus likely representing acute sinusitis. ACT 112: Negative or not required by law. Electronically signed by: Farhan Michaels M.D. 10/05/2020 3:10 PM Code Status & VTE Plan Code Status conditional - compression/shocks ok; no intubation/mech ventilation VTE Prophylaxis Plan VTE Prophylaxis will be ordered: Yes PG Care Time/CCT Total # of Minutes Spent Total Time Spent with Patient: Total time spent is greater than 50% in coordination of care (as documented) at patient's floor/unit and/or counseling patient: Coding Level of Care Code 51581 Initial Inpt Care Lvl 3 Diagnoses Multifocal pneumonia J18.9 Acute maxillary sinusitis J01.00 Recurrence: non-recurrent Acute and chronic respiratory failure with hypoxia J96.21 COPD (chronic obstructive pulmonary disease) J44.1 COPD type: COPD with acute exacerbation H/O mechanical aortic valve replacement Z95.2 CAD (coronary artery disease) I25.10 Hypertension I10 Diabetes type 1, uncontrolled E10.65 Dyslipidemia E78.5 BPH NOS w ur obs/LUTS N40.1 Supratherapeutic INR R79.1 DVT prophylaxis Z29.9 (1) COPD (chronic obstructive pulmonary disease) COPD type: COPD with acute exacerbation Qualified Code(s): J44.1 - Chronic obstructive pulmonary disease with (acute) exacerbation (2) Acute maxillary sinusitis Recurrence: non-recurrent Qualified Code(s): J01.00 - Acute maxillary sinusitis, unspecified
[2020-10-05 17:02] LABS: Appearance Urine Clear (Clear); Bacteria Urine Automated Negative (Negative); Bilirubin Urine Negative (Negative); Blood Urine Negative (Negative); Color Urine Dark Yellow; Glucose Urine UA 2+ (Negative); Ketones Urine Trace (Negative); Leukocyte Esterase Urine Negative (Negative); Nitrite Urine Negative (Negative); Protein Urine 1+ (Negative); RBC Urine Automated 0-4 /hpf (0-4); Specific Gravity Urine 1.029 (1.000-1.030); Urobilinogen Urine Negative (Negative); pH Urine 6.5 (4.5-7.5)
[2020-10-05] MEDS ORDERED: PHARMACY GLYCEMIC MGMT CONSULT STA ×2 (17:51→22:35)
[2020-10-05] MEDS ORDERED: ACETAMINOPHEN 325 MG TAB PO PRN (21:24)
[2020-10-05] MEDS ORDERED: ONDANSETRON INJ 2 MG/ML 2 ML VIAL IV PRN (21:24)
[2020-10-05] MEDS: guaiFENesin 600 MG TABCR PO SCH (22:26)
[2020-10-05] MEDS: PREGABALIN 100 MG CAP PO SCH (22:27)
[2020-10-05] MEDS: NYSTATIN SUSP 500,000 U/5 ML UDC PO SCH (22:27)
[2020-10-05] MEDS: NYSTATIN CR 15 GM TUBE EXT SCH (22:27)
[2020-10-05] MEDS ORDERED: PHARMACY GLYCEMIC MGMT CONSULT PRN (22:35)
[2020-10-05] MEDS: INSULIN ASPART 100 UNITS/ML 3 ML PEN SC SCH (22:38)
[2020-10-05] MEDS: INSULIN GLARGINE SOLOSTAR 100 UNITS/ML 3 ML PEN SC SCH (22:38)
[2020-10-05] MEDS ORDERED: GLUCAGON FOR INJ 1 MG VIAL IM PRN (23:15)
[2020-10-05] MEDS ORDERED: CARBOHYDRATES FOR HYPOGLYCEMIA PO PRN (23:15)
[2020-10-05] MEDS ORDERED: GLUCOSE 40% GEL 15 GM TUBE PO PRN (23:15)
[2020-10-05] MEDS ORDERED: DEXTROSE 50% 50 ML SYRINGE IV PRN (23:15)
[2020-10-05] MEDS ORDERED: GLUCOSE 10 TABS/TUBE PO PRN (23:15)
[2020-10-05] MEDS: ALBUTEROL 0.083% NEBU SOLN 3 ML VIAL INH SCH (23:31)
[2020-10-05] MEDS: SODIUM CHLOR 7% 4 ML NEB INH SCH (23:32)
[2020-10-05] MEDS: AZELASTINE~ORDER AWAITING ACTION SCH (23:55)
[2020-10-05] MEDS: AVODART~ORDER AWAITING ACTION SCH (23:55)
[2020-10-06] MEDS: AZELASTINE~ORDER AWAITING ACTION SCH ×4 (00:15→23:12)
[2020-10-06] MEDS: AVODART~ORDER AWAITING ACTION SCH ×4 (00:15→23:12)
[2020-10-06] MEDS: INSULIN ASPART 100 UNITS/ML 3 ML PEN SC SCH ×6 (01:12→20:16)
[2020-10-06 06:55] LABS: Hematocrit (blood only) 35.9 % (42-52); Mean Corpuscular Hemoglobin 32.6 pg (25-34); Mean Corpuscular Hgb Conc 33.4 g/dL (32-36); Mean Corpuscular Volume 97.6 fL (80-100); Platelet Count 142 K/uL (130-400); RDW Coefficient of Variation 14.3 % (11.5-14.5); RDW Standard Deviation 50.9 fL (36.4-46.3); Red Blood Count 3.68 M/uL (4.7-6.1); White Blood Count 7.74 K/uL (4.8-10.8)
[2020-10-06 07:05] LABS: INR 3.2 (0.9-1.1); Prothrombin Time 29.3 Seconds (9.0-12.0)
[2020-10-06] MEDS: ALBUTEROL 0.083% NEBU SOLN 3 ML VIAL INH SCH (07:25)
[2020-10-06] MEDS: SODIUM CHLOR 7% 4 ML NEB INH SCH (07:25)
[2020-10-06 07:28] LABS: BUN Creatinine Ratio 29.9 (10-20); Calcium 8.8 mg/dl (8.5-10.1); Creatinine Clr Calc Pharmacy 57.3 ml/min; Est GFR (African American) 92.3; Est GFR (Non-African American) 79.7; Potassium 3.9 mmol/L (3.5-5.1)
--- NOTE | 2020-10-06 07:32 | Electrocardiogram Report ---
Test Reason : Blood Pressure : / mmHG Vent. Rate : 103 BPM Atrial Rate : 103 BPM P-R Int : 130 ms QRS Dur : 092 ms QT Int : 322 ms P-R-T Axes : 083 088 064 degrees QTc Int : 421 ms Sinus tachycardia Possible Left atrial enlargement Borderline ECG No previous ECGs available Confirmed by Scott Eller ([id number]) on 10/06/2020 7:31:35 AM Referred By: Confirmed By:Scott Eller
[2020-10-06] MEDS: ADVANCED PROBIOTIC 1250 MG CAPSULE PO SCH (08:31)
[2020-10-06] MEDS: ATORVASTATIN 20 MG TAB PO SCH (08:31)
[2020-10-06] MEDS: PREGABALIN 100 MG CAP PO SCH ×3 (08:31→20:14)
[2020-10-06] MEDS: DULoxetine HCL 60 MG CAP PO SCH (08:31)
[2020-10-06] MEDS: ASPIRIN 81 MG ECTAB PO SCH (08:31)
[2020-10-06] MEDS: predniSONE 20 MG TAB PO SCH (08:31)
[2020-10-06] MEDS: guaiFENesin 600 MG TABCR PO SCH ×2 (08:31→19:58)
[2020-10-06] MEDS: CICLOPIROX~ORDER AWAITING ACTION SCH ×3 (08:32→23:12)
[2020-10-06] MEDS: NYSTATIN SUSP 500,000 U/5 ML UDC PO SCH ×3 (08:32→20:14)
[2020-10-06] MEDS: NYSTATIN CR 15 GM TUBE EXT SCH ×2 (08:33→20:14)
[2020-10-06] MEDS: FINASTERIDE 5 MG TAB PO SCH (09:15)
[2020-10-06] MEDS: AZITHROMYCIN 250 MG TAB PO SCH (09:15)
[2020-10-06] MEDS ORDERED: INSULIN HUMAN NPH SC ONE (09:30)
[2020-10-06] MEDS ORDERED: INSULIN HUMAN REGULAR PER UNIT 5 UNITS in SYRINGE 4.95 ML IV ONE ×2 (11:30→20:45)
--- NOTE | 2020-10-06 12:09 | Hospitalist Progress Note ---
Date of Service October 06, 2020 Assessment & Plan (1) Multifocal pneumonia: Bacterial multilobular pneumonia COVID negative on 09/28 and then again on admission. Completed his COVID vaccine series. Flu/RSV negative. Rocephin/Zithromax. No recent hospital admission; defer on gram negative coverage for now but low threshold for such if any worsening given his advanced COPD. - Patient feels less dyspneic today and his hypoxia is improved Blood cultures- NGTD NC O2 support- hypoxia improved, wean down for SPO2 88-92% Mucolytics, continue usual inhalers, etc. - improved sinus congestion and nasal drainage reported by patient. Pneumonia is b/l lower lobes. Speech is somewhat slurry/garbled. To be complete will ask speech to see to ensure no aspiration/dysphagia. (2) Acute maxillary sinusitis: as seen on head CT. Rocephin will cover this well. - As above, sinus congestion subjectively better (3) Acute and chronic respiratory failure with hypoxia: On home O2 chronically via nasal cannula. Mild increase in O2 requirement today with increased work of breathing. acute component 2nd to pneumonia as well as mild COPD exacerbation. - current treatment for both COPD and pneumonia is sufficient. No changes - Wean back oxygen today to baseline use (4) COPD (chronic obstructive pulmonary disease): with mild COPD exacerbation. on chronic prednisone 10mg daily. follows with Primo BARRAZA. increase prednisone to 40mg daily then taper as he improves.- continue no change cont usual inhalers - can change nebulizers to prn today mucolytics, NaCl nebs (takes these chronically), etc. (5) H/O mechanical aortic valve replacement: INR goal 2.5 to 3.5 supratherapeutic INR today likely due to poor diet last few days- agreed restart Coumadin at 4mg today, follow INR and continue back to 4mg 5x per week and 6mg 2 days per week ( and Thursday) daily INR while hospitalized Appropriate mechanical valve click with auscultation (6) CAD (coronary artery disease): noted no ischemic symptoms at this time cont, asa, statin uncertain why he is not on beta merline (due to COPD??) - Patient BB recently discontinued in August secondary to low blood pressures at home. Recommend he be started back on this - He was on 25mg PO BID up until then- If he is stable from pulmonary and CV status tonight can re-introduce this while in hospitalized setting. (7) Hypertension: controlled cont outpatient meds (8) Diabetes type 1, uncontrolled: anticipate significant lability and [id number] BSGs due to steroids and stress pharmacy glycemic consult placed lantus 15 units HS novolog correction/carb coverage a1c in 04/2020 was >10% - Pharmacy consult appreciated with long standing steroid use and now with burst therapy. Goal 120-180 (9) Dyslipidemia: cont statin (10) BPH NOS w ur obs/LUTS: substitute finasteride for dutasteride (11) Supratherapeutic INR: Resolved- as above likely realated to poor dietary intake of what he normally eats - 4mg today then start back on regular schedule- INR daily checks. (12) DVT prophylaxis: coumadin Admission and Anticipated Discharge Date Admission Date: October 05, 2020 Supervising Physician Co-Signing Physician Notes Attending Attestation - Chart reviewed in detail, care plan d/w [place]O Pathak. I agree w/ the casillas components of his documentation. Pt clinically improving. Stable O2 sats, vitals, and labs. Resume coumadin today. Continue IV antibiotics. Repeat labs in am. Ck Loyd MD Subjective Feeling less tired and breathing better Review of Systems Review of Systems: REVIEW OF SYSTEMS: Constitutional: No fever, sweats or chills last night Eyes: (+) worsening or blurred vision No diplopia, no ENT: (+) congestion, nasal drainage, normal hearing, no trouble swallowing, Respiratory: (+) cough, sputum, dyspnea at rest or on exertion Cardiovascular: No chest pain, tightness or palpitations Abdomen: No pain, nausea, vomiting, diarrhea or constipation Musculoskeletal: (+) myalgias, joint pain, calf pain, swelling Neurologic: (+) weakness, (-) numbness/tingling, or balance problems Psychiatric: No anxiety or depression Skin: No rash or itch Physical Exam Physical Exam: PHYSICAL EXAM: General: awake, alert, no apparent distress Head: Normocephalic, atraumatic ENT: PERRL, EOMI, no pharyngeal exudate, mucous membranes moist Neuro: AAO x 3, speech clear and appropriate, strength intact bilaterally 5/5, sensation intact and equal all extremities and dermatomes, no pronator drift Chest: equal rise and fall of the chest, no accessory muscle use, no heaves or thrills, scattered rhonchi, no egophany, with mild expiratory wheeze, on 2lNC, Cardiac: Regular rate and rhythm, S1S2 with mechanical click, skin warm dry, cap refill <3 seconds, peripheral pulses +2 no JVD, no murmur, no edema, no ca rotid or abdominal bruit GI: NABS x 4 quadrants, soft, nontender to palpation, no rebound, guarding or tenderness : Spontaneously voiding, no pain, no CVA tenderness, Extremities: Normal inspection, no peripheral edema or erythema, calfs nontender to palpation Psych: Normal mood and affect Skin: no rash or erythema Results & Data Results & Data ([facility]) Vital Signs (Past 12 Hours) Vital Signs Temp Pulse Pulse Resp BP Pulse Ox 10/06/20 08:16 36.5 C 80 18 110/60 92 10/06/20 08:00 82 10/06/20 07:25 79 20 90 10/06/20 03:42 36.4 C L 75 18 110/61 90 Laboratory Results Abnormal lab results 10/05/20 10/05/20 10/05/20 Range/Units 13:20 13:20 13:20 RBC 4.11 L (4.7-6.1) M/uL Hgb 13.7 L (14.0-18.0) g/dL Hct 40.1 L (42-52) % RDW Std Deviation 51.4 H (36.4-46.3) fL MPV 12.9 H (7.4-10.4) fL Neut # (Auto) 8.70 H (1.4-6.5) K/uL Lymph # (Auto) 0.56 L (1.2-3.4) K/uL [place] # (Auto) 0.94 H (0.11-0.59) K/uL Immature Gran # (Auto) 0.03 H (0.00-0.02) K/uL PT 47.7 H (9.0-12.0) Seconds INR 5.4 H (0.9-1.1) APTT 47.3 H* (21.0-31.0) Seconds VBG pH (7.36-7.41) BUN 24 H (7-18) mg/dl BUN/Creatinine Ratio 22.7 H (10-20) Glucose 286 H (70-99) mg/dl POC Glucose (70-99) mg/dl Lactate (0.4-2.0) mmol/L Procalcitonin (0-0.5) ng/ml Urine Protein (Negative) Urine Glucose (UA) (Negative) Urine Ketones (Negative) U Epithel Cells (Auto) (0-5) /lpf 10/05/20 10/05/20 10/05/20 Range/Units 13:20 14:38 16:17 RBC (4.7-6.1) M/uL Hgb (14.0-18.0) g/dL Hct (42-52) % RDW Std Deviation (36.4-46.3) fL MPV (7.4-10.4) fL Neut # (Auto) (1.4-6.5) K/uL Lymph # (Auto) (1.2-3.4) K/uL [place] # (Auto) (0.11-0.59) K/uL Immature Gran # (Auto) (0.00-0.02) K/uL PT (9.0-12.0) Seconds INR (0.9-1.1) APTT (21.0-31.0) Seconds VBG pH 7.43 H (7.36-7.41) BUN (7-18) mg/dl BUN/Creatinine Ratio (10-20) Glucose (70-99) mg/dl POC Glucose (70-99) mg/dl Lactate 2.2 H* (0.4-2.0) mmol/L Procalcitonin (0-0.5) ng/ml Urine Protein 1+ H (Negative) Urine Glucose (UA) 2+ H (Negative) Urine Ketones Trace H (Negative) U Epithel Cells (Auto) 10-20 H (0-5) /lpf 10/05/20 10/05/20 10/05/20 Range/Units 16:57 22:21 22:23 RBC (4.7-6.1) M/uL Hgb (14.0-18.0) g/dL Hct (42-52) % RDW Std Deviation (36.4-46.3) fL MPV (7.4-10.4) fL Neut # (Auto) (1.4-6.5) K/uL Lymph # (Auto) (1.2-3.4) K/uL [place] # (Auto) (0.11-0.59) K/uL Immature Gran # (Auto) (0.00-0.02) K/uL PT (9.0-12.0) Seconds INR (0.9-1.1) APTT (21.0-31.0) Seconds VBG pH (7.36-7.41) BUN (7-18) mg/dl BUN/Creatinine Ratio (10-20) Glucose (70-99) mg/dl POC Glucose 445 H* 470 H* (70-99) mg/dl Lactate (0.4-2.0) mmol/L Procalcitonin 1.31 H (0-0.5) ng/ml Urine Protein (Negative) Urine Glucose (UA) (Negative) Urine Ketones (Negative) U Epithel Cells (Auto) (0-5) /lpf 10/06/20 10/06/20 10/06/20 Range/Units 00:57 04:04 06:16 RBC 3.68 L (4.7-6.1) M/uL Hgb 12.0 L (14.0-18.0) g/dL Hct 35.9 L (42-52) % RDW Std Deviation 50.9 H (36.4-46.3) fL MPV 13.0 H (7.4-10.4) fL Neut # (Auto) (1.4-6.5) K/uL Lymph # (Auto) (1.2-3.4) K/uL [place] # (Auto) (0.11-0.59) K/uL Immature Gran # (Auto) (0.00-0.02) K/uL PT (9.0-12.0) Seconds INR (0.9-1.1) APTT (21.0-31.0) Seconds VBG pH (7.36-7.41) BUN (7-18) mg/dl BUN/Creatinine Ratio (10-20) Glucose (70-99) mg/dl POC Glucose 386 H* 293 H (70-99) mg/dl Lactate (0.4-2.0) mmol/L Procalcitonin (0-0.5) ng/ml Urine Protein (Negative) Urine Glucose (UA) (Negative) Urine Ketones (Negative) U Epithel Cells (Auto) (0-5) /lpf 10/06/20 10/06/20 10/06/20 Range/Units 06:16 06:16 07:15 RBC (4.7-6.1) M/uL Hgb (14.0-18.0) g/dL Hct (42-52) % RDW Std Deviation (36.4-46.3) fL MPV (7.4-10.4) fL Neut # (Auto) (1.4-6.5) K/uL Lymph # (Auto) (1.2-3.4) K/uL [place] # (Auto) (0.11-0.59) K/uL Immature Gran # (Auto) (0.00-0.02) K/uL PT 29.3 H (9.0-12.0) Seconds INR 3.2 H (0.9-1.1) APTT (21.0-31.0) Seconds VBG pH (7.36-7.41) BUN 29 H (7-18) mg/dl BUN/Creatinine Ratio 29.9 H (10-20) Glucose 300 H (70-99) mg/dl POC Glucose 260 H (70-99) mg/dl Lactate (0.4-2.0) mmol/L Procalcitonin (0-0.5) ng/ml Urine Protein (Negative) Urine Glucose (UA) (Negative) Urine Ketones (Negative) U Epithel Cells (Auto) (0-5) /lpf 10/06/20 10/06/20 Range/Units 11:06 11:07 RBC (4.7-6.1) M/uL Hgb (14.0-18.0) g/dL Hct (42-52) % RDW Std Deviation (36.4-46.3) fL MPV (7.4-10.4) fL Neut # (Auto) (1.4-6.5) K/uL Lymph # (Auto) (1.2-3.4) K/uL [place] # (Auto) (0.11-0.59) K/uL Immature Gran # (Auto) (0.00-0.02) K/uL PT (9.0-12.0) Seconds INR (0.9-1.1) APTT (21.0-31.0) Seconds VBG pH (7.36-7.41) BUN (7-18) mg/dl BUN/Creatinine Ratio (10-20) Glucose (70-99) mg/dl POC Glucose 412 H* 375 H* (70-99) mg/dl Lactate (0.4-2.0) mmol/L Procalcitonin (0-0.5) ng/ml Urine Protein (Negative) Urine Glucose (UA) (Negative) Urine Ketones (Negative) U Epithel Cells (Auto) (0-5) /lpf Diagnostic Findings No new images Medications Administered Albuterol (Albuterol 0.083% Nebu Soln 3 Ml Vial) 2.5 mg INH Q6RWA [facility] Stop: 11/04/20 21:23 Last Admin: 10/06/20 07:25 Dose: 2.5 mg Documented by: [id number] Admin: 10/05/20 23:31 Dose: 2.5 mg Documented by: [id number] Aspirin (Aspirin 81 Mg Ectab) 81 mg PO DAILY [facility] Stop: 11/05/20 08:59 Last Admin: 10/06/20 08:31 Dose: 81 mg Documented by: [id number] Atorvastatin Calcium (Atorvastatin 20 Mg Tab) 20 mg PO DAILY [facility] Stop: 11/05/20 08:59 Last Admin: 10/06/20 08:31 Dose: 20 mg Documented by: [id number] Azith[facility] ([facility] 250 Mg Tab) [facility] Stop: 10/09/20 09:01 Last Admin: 10/06/20 09:15 Dose: 250 mg Documented by: [id number] Duloxetine HCl (Duloxetine Hcl 60 Mg Cap) 60 mg PO DAILY [facility] Stop: 11/05/20 08:59 Last Admin: 10/06/20 08:31 Dose: 60 mg Documented by: [id number] Finasteride (Finasteride 5 Mg Tab) 5 mg PO QAM [facility] Stop: 11/05/20 08:59 Last Admin: 10/06/20 09:15 Dose: 5 mg Documented by: [id number] Guaifenesin (Guaifenesin 600 Mg Tabcr) 1,200 mg PO Q12 [facility] Stop: 11/04/20 21:23 Last Admin: 10/06/20 08:31 Dose: 1,200 mg Documented by: [id number] Admin: 10/05/20 22:26 Dose: 1,200 mg Documented by: [id number] Insulin Aspart (Insulin Aspart 100 Units/Ml 3 Ml Pen) 0 units SC ACHS [facility] Stop: 11/04/20 21:59 Last Admin: 10/06/20 11:51 Dose: 15 units Documented by: [id number] Cosigned by: [id number] Admin: 10/06/20 08:39 Dose: 11 units Documented by: [id number] Cosigned by: [id number] Admin: 10/05/20 22:38 Dose: 11 units Documented by: [id number] Cosigned by: [id number] Insulin Glargine (Insulin Glargine Solostar 100 Units/Ml 3 Ml Pen) 15 units SC HS [facility] Stop: 11/04/20 21:59 Last Admin: 10/05/20 22:38 Dose: 15 units Documented by: [id number] Cosigned by: [id number] Lactobacillus Acidoph/Casei/Rhamnos (Advanced Probiotic 1250 Mg Capsule) 2 cap PO DAILY [facility] Stop: 11/05/20 08:59 Last Admin: 10/06/20 08:31 Dose: 2 cap Documented by: [id number] Miscellaneous (Azelastine~Order Awaiting Action) 1 ea N/A QS [facility] Stop: 11/04/20 22:14 Last Admin: 10/06/20 08:32 Dose: Not Given Documented by: [id number] Admin: 10/06/20 00:15 Dose: Not Given Documented by: [id number] Admin: 10/05/20 23:55 Dose: Not Given Documented by: [id number] Miscellaneous (Ciclopirox~Order Awaiting Action) 1 ea N/A QS [facility] Stop: 11/05/20 07:59 Last Admin: 10/06/20 08:32 Dose: Not Given Documented by: [id number] Miscellaneous (Avodart~Order Awaiting Action) 1 ea N/A QS [facility] Stop: 11/04/20 22:59 Last Admin: 10/06/20 08:32 Dose: Not Given Documented by: [id number] Admin: 10/06/20 00:15 Dose: Not Given Documented by: [id number] Admin: 10/05/20 23:55 Dose: Not Given Documented by: [id number] Nystatin (Nystatin Susp 500,000 U/5 Ml Udc) 5 ml PO TID [facility] Stop: 10/15/20 21:23 Last Admin: 10/06/20 08:32 Dose: 5 ml Documented by: [id number] Admin: 10/05/20 22:27 Dose: 5 ml Documented by: [id number] Nystatin (Nystatin Cr 15 Gm Tube) 1 appln EXT BID [facility] Stop: 11/04/20 21:23 Last Admin: 10/06/20 08:33 Dose: 1 appln Documented by: [id number] Admin: 10/05/20 22:27 Dose: 1 appln Documented by: [id number] Prednisone (Prednisone 20 Mg Tab) 40 mg PO QAM [facility] Stop: 11/05/20 08:59 Last Admin: 10/06/20 08:31 Dose: 40 mg Documented by: [id number] Pregabalin (Pregabalin 100 Mg Cap) 200 mg PO TID [facility] Stop: 11/04/20 21:23 Last Admin: 10/06/20 08:31 Dose: 200 mg Documented by: [id number] Admin: 10/05/20 22:27 Dose: 200 mg Documented by: [id number] Sodium Chloride (Sodium Chlor 7% 4 Ml Neb) 4 ml INH BIDR [facility] Stop: 11/04/20 21:23 Last Admin: 10/06/20 07:25 Dose: 4 ml Documented by: [id number] Admin: 10/05/20 23:32 Dose: 4 ml Documented by: [id number] Discontinued Medications Albuterol (Albut/Ipratrop 3mg/0.5mg Neb 3 Ml Vial) 3 ml NEB NOW STA Stop: 10/05/20 13:17 Last Admin: 10/05/20 13:48 Dose: 3 ml Documented by: [id number] Azithromycin (Azithromycin 250 Mg Tab) 500 mg PO NOW ONE Stop: 10/05/20 14:59 Last Admin: 10/05/20 15:27 Dose: 500 mg Documented by: [id number] Sodium Chloride (Nss 1000ml) 500 mls @ 999 mls/hr IV .Q31M ONE Stop: 10/05/20 13:46 Last Infusion: 10/05/20 14:20 Dose: 0 mls/hr Documented by: [id number] Admin: 10/05/20 13:47 Dose: 999 mls/hr Documented by: [id number] Ceftriaxone Sodium (Rocephin) 1,000 mg in 50 mls @ 100 mls/hr IV NOW STA Stop: 10/05/20 15:27 Last Infusion: 10/05/20 15:57 Dose: 0 mls/hr Documented by: [id number] Admin: 10/05/20 15:27 Dose: 100 mls/hr Documented by: [id number] Insulin Human Regular 5 units/ (Syringe) 5 mls @ 30 mls/min IV TODAY@1130 ONE Stop: 10/06/20 11:31 Last Admin: 10/06/20 11:50 Dose: 30 mls/min Documented by: [id number] Cosigned by: [id number] Insulin Aspart (Insulin Aspart 100 Units/Ml 3 Ml Pen) 0 units SC 0100,0400 [facility] Stop: 10/06/20 04:01 Last Admin: 10/06/20 04:08 Dose: 6 units Documented by: [id number] Cosigned by: [id number] Admin: 10/06/20 01:12 Dose: 9 units Documented by: [id number] Cosigned by: [id number] Insulin Human NPH (Insulin Human Nph) 10 units SC NOW ONE Stop: 10/06/20 09:31 Last Admin: 10/06/20 10:15 Dose: 10 units Documented by: [id number] Cosigned by: [id number] Methylprednisolone (Methylprednisolone 125 Mg/2 Ml Vial) 125 mg IV NOW STA Stop: 10/05/20 13:17 Last Admin: 10/05/20 13:47 Dose: 125 mg Documented by: [id number] Miscellaneous Information (Pharmacy Glycemic Mgmt Consult) 1 ea N/A NOW STA Stop: 10/05/20 17:52 Last Admin: 10/05/20 22:46 Dose: 1 ea Documented by: [id number] Miscellaneous Information (Pharmacy Glycemic Mgmt Consult) 1 ea N/A NOW STA Stop: 10/05/20 22:36 Last Admin: 10/06/20 07:44 Dose: Not Given Documented by: [id number] PG Care Time/CCT Total # of Minutes Spent Total Time Spent with Patient: Total time spent is greater than 50% in coordination of care (as documented) at patient's floor/unit and/or counseling patient: Coding Level of Care Code 44571 Subseq Hosp Care Lvl 3 Diagnoses Multifocal pneumonia J18.9 Acute maxillary sinusitis J01.00 Recurrence: non-recurrent Acute and chronic respiratory failure with hypoxia J96.21 COPD (chronic obstructive pulmonary disease) J44.1 COPD type: COPD with acute exacerbation H/O mechanical aortic valve replacement Z95.2 CAD (coronary artery disease) I25.10 Hypertension I10 Diabetes type 1, uncontrolled E10.65 Dyslipidemia E78.5 BPH NOS w ur obs/LUTS N40.1 Supratherapeutic INR R79.1 DVT prophylaxis Z29.9 (1) Acute maxillary sinusitis Recurrence: non-recurrent Qualified Code(s): J01.00 - Acute maxillary sinusitis, unspecified (2) COPD (chronic obstructive pulmonary disease) COPD type: COPD with acute exacerbation Qualified Code(s): J44.1 - Chronic obstructive pulmonary disease with (acute) exacerbation
[2020-10-06] MEDS ORDERED: ALBUTEROL 0.083% NEBU SOLN 3 ML VIAL INH PRN (12:52)
--- NOTE | 2020-10-06 14:46 | Pharmacy Report ---
Pharmacy Glycemic Short Note 2 - Date of Service October 06, 2020 - Glycemic Short BSG Results (Last 24 hours): 10/05/20 10/05/20 10/06/20 22:21 22:23 00:57 Glucose POC Glucose 445 H* 470 H* 386 H* 10/06/20 10/06/20 10/06/20 04:04 06:16 07:15 Glucose 300 H POC Glucose 293 H 260 H 10/06/20 10/06/20 11:06 11:07 Glucose POC Glucose 412 H* 375 H* OUTPATIENT ANTIDIABETIC REGIMEN: * Tresiba 12 units HS, Humalog SSI * 10.8% A1c 04/2020 ASSESSMENT: * 74 year old male admitted with pneumonia and started on steroids. Type 1 diabetic, follows [facility] outpatient * Per review of notes, patients BSGs labile. BSGs elevated this AM d/t steroids - I started low dose NPH to help with steroid coverage. Will continued with stressed dose of home basal for HS time * BSGs elevated at lunch time - given 5 units IV insulin PLAN FOR INPATIENT GLYCEMIC CONTROL: * Hold outpatient oral diabetes medications * Basal insulin * Lantus 15 units HS * Bolus insulin * NovoLog per scale ACHS or Q6hrs while NPO * Goal Range: Low 110 mg/dL - High 140 mg/dL * Correction Factor: 30 mg/dL/unit * Nutritional / Prandial insulin per carb ratio of 1 unit per 9 grams CHO consumed PLAN FOR DISCHARGE: * tbd
[2020-10-06] MEDS ORDERED: WARFARIN SOD 4 MG TAB PO ONE (16:00)
[2020-10-06] MEDS: cefTRIAXone SODIUM 1,000 MG in DEXTROSE 5% 50 ML IV SCH (16:40)
[2020-10-06] MEDS: INSULIN GLARGINE SOLOSTAR 100 UNITS/ML 3 ML PEN SC SCH (20:17)
[2020-10-07] MEDS: INSULIN ASPART 100 UNITS/ML 3 ML PEN SC SCH ×6 (00:14→21:12)
[2020-10-07] MEDS: AZELASTINE~ORDER AWAITING ACTION SCH ×2 (07:39→14:56)
[2020-10-07] MEDS: CICLOPIROX~ORDER AWAITING ACTION SCH ×2 (07:39→14:56)
[2020-10-07] MEDS: AVODART~ORDER AWAITING ACTION SCH ×2 (07:39→14:56)
[2020-10-07] MEDS ORDERED: INSULIN HUMAN NPH SC SCH (08:00)
[2020-10-07] MEDS: AZITHROMYCIN 250 MG TAB PO SCH (08:28)
[2020-10-07] MEDS: FINASTERIDE 5 MG TAB PO SCH (08:28)
[2020-10-07] MEDS: ATORVASTATIN 20 MG TAB PO SCH (08:28)
[2020-10-07] MEDS: DULoxetine HCL 60 MG CAP PO SCH (08:28)
[2020-10-07] MEDS: predniSONE 20 MG TAB PO SCH (08:28)
[2020-10-07] MEDS: ADVANCED PROBIOTIC 1250 MG CAPSULE PO SCH (08:28)
[2020-10-07] MEDS: ASPIRIN 81 MG ECTAB PO SCH (08:28)
[2020-10-07] MEDS: PREGABALIN 100 MG CAP PO SCH ×3 (08:28→21:08)
[2020-10-07] MEDS: NYSTATIN SUSP 500,000 U/5 ML UDC PO SCH ×3 (08:29→21:09)
[2020-10-07] MEDS: NYSTATIN CR 15 GM TUBE EXT SCH ×2 (08:29→21:27)
[2020-10-07] MEDS: guaiFENesin 600 MG TABCR PO SCH ×2 (08:29→21:09)
[2020-10-07 10:31] LABS: Eosinophils # (auto) 0.09 K/uL (0-0.5); Hematocrit (blood only) 39.1 % (42-52); Hemoglobin 13.4 g/dL (14.0-18.0); Immature Granulocytes # (auto) 0.04 K/uL (0.00-0.02); Immature Granulocytes % (auto) 0.4 %; Lymphocytes # (auto) 0.86 K/uL (1.2-3.4); Lymphocytes % (auto) 9.5 %; Mean Corpuscular Hemoglobin 33.6 pg (25-34); Mean Corpuscular Hgb Conc 34.3 g/dL (32-36); Mean Platelet Volume 12.1 fL (7.4-10.4); Monocytes # (auto) 0.73 K/uL (0.11-0.59); Monocytes % (auto) 8.1 %; Neutrophils # (auto) 7.29 K/uL (1.4-6.5); Platelet Count 192 K/uL (130-400); RDW Coefficient of Variation 14.2 % (11.5-14.5); RDW Standard Deviation 51.4 fL (36.4-46.3); Red Blood Count 3.99 M/uL (4.7-6.1); White Blood Count 9.01 K/uL (4.8-10.8)
[2020-10-07 10:51] LABS: INR 3.7 (0.9-1.1); Prothrombin Time 33.7 Seconds (9.0-12.0)
[2020-10-07 10:56] LABS: BUN Creatinine Ratio 35.9 (10-20); Calcium 9.3 mg/dl (8.5-10.1); Est GFR (African American) 100.9; Est GFR (Non-African American) 87.1; Potassium 3.4 mmol/L (3.5-5.1)
[2020-10-07] MEDS ORDERED: POTASSIUM CHLORIDE CRTAB 20 MEQ TABCR PO STA (11:58)
--- NOTE | 2020-10-07 12:40 | Hospitalist Progress Note ---
Date of Service October 07, 2020 Assessment & Plan (1) Multifocal pneumonia: Bacterial multilobar pneumonia COVID negative on 09/28; then COVID negative again on admission Had 2-vaccine COVID shots as well. Flu/RSV negative. Improviong, back to [facility] ebaseline O2 of 4LNC, still with cough and sputum production. Weakness and appetite improving. Still ara ewheezing. -continue Rocephin/Zithromax. No recent hospital admission; defer on gram negative coverage for now but low threshold for such if any worsening given his advanced COPD. Blood cultures- NGTD NC O2 support- hypoxia improved Mucolytics, continue usual inhalers, etc. - improved sinus congestion and nasal drainage reported by patient. Pneumonia is b/l lower lobes. Speech is somewhat slurry/garbled. To be complete will ask speech to see to ensure no aspiration/dysphagia. (2) Acute maxillary sinusitis: as seen on head CT. Rocephin will cover this well. - As above, sinus congestion subjectively better (3) Acute and chronic respiratory failure with hypoxia: On home O2 chronically via nasal cannula. Mild increase in O2 requirement on admission with increased work of breathing. Was requiring 6LNC on admission and now improved to baseline 4LNC acute component 2nd to pneumonia as well as mild COPD exacerbation. - current treatment for both COPD and pneumonia is sufficient. No changes (4) COPD (chronic obstructive pulmonary disease): with mild COPD exacerbation. on chronic prednisone 10mg daily for the last 2 weeks at home. follows with Primo BARRAZA. increased prednisone to 40mg daily then taper as he improves.-will go down to 30mg for tomorrow and then down by 10mg q2 days cont usual inhalers -continue nebulizers prn mucolytics, NaCl nebs (takes these chronically), etc. (5) H/O mechanical aortic valve replacement: INR goal 2.5 to 3.5 supratherapeutic INR today at 3.7 likely due to poor diet last few days prior to admission. APpetite now improved but also on antibiotics that could drive up the INR Coumadin was held on Thursday 10/05, he received 4mg on 10/06 Home dose is: 4mg 5x per week and 6mg 2 days per week ( and Thursday) HOLD Coumadin today daily INR while hospitalized Appropriate mechanical valve click with auscultation (6) CAD (coronary artery disease): noted no ischemic symptoms at this time cont, asa, statin uncertain why he is not on beta merline (due to COPD??) - Patient BB recently discontinued in August secondary to low blood pressures at home. Recommend he be started back on this if possible but BPs remain soft at times - He was on 25mg PO BID up until then- If he is stable from pulmonary and CV status tonight can re-introduce this while in hospitalized setting. (7) Hypertension: controlled cont outpatient meds (8) Diabetes type 1, uncontrolled: anticipate significant lability and [id number] BSGs due to steroids and stress pharmacy glycemic consult placed for severe hyperglycemia here in the 500s lantus 15 units HS novolog correction/carb coverage and NPH added a1c in 04/2020 was >10% - Pharmacy consult appreciated with long standing steroid use and now with burst therapy. Goal 120-180 (9) Dyslipidemia: cont statin (10) BPH NOS w ur obs/LUTS: substitute finasteride for dutasteride (11) Supratherapeutic INR: as above (12) Oral candidiasis: daughter reports thrush for weeks despite nystatin s/s at home she gave him one dose of diflucan at home 2 days prior to admission seems improved here now probably because of the diflucan he received at home -will restart diflucan 100mg po daily here but likely only 2 doses as can interact with coumadin follow INR (13) DVT prophylaxis: coumadin Dispo-continued stay on tele, but improving PT/OT saw and recommended home with 19/01 care and home health Discussed care with daughter on phone Admission and Anticipated Discharge Date Admission Date: October 05, 2020 Subjective Pt reports he is feeling better overall, better appetite, eating much more. No BM in 5 days. Still coughing up yellow sputum. Denies SOB or CP. Is weaned down to his usual 4LNC. No nausea. Reports he has had thrush for weeks and had a very sore mouth but now is improving. His daughter on the phone was concerned about this as he had thrush for weeks despite using Nystatin at home. She reports she actually gave him Diflucan at home a few days ago. Tele with NSR, PACs. rates 80-90s Review of Systems Review of Systems: All systems reviewed & are unremarkable except as noted in HPI & below Physical Exam Constitutional: + thin and + cachectic; no acute distress Eyes: + anicteric sclerae ENMT: Mouth: + oropharynx abnormality (mild white exudate, no erythema) Neck: trachea midline, no thyromegaly Respiratory: normal respiratory effort Auscultation: + crackles (at bases bilat) and + wheezes (a few scattered wheezes); no rhonchi Cardiovascular: Rate/Rhythm: regular rate and regular rhythm (with frequent extra beats) Heart Sounds: + abnormal S2 (loud click) and no murmur Chest (Breasts): Chest: normal inspection of chest Gastrointestinal (Abdomen): normal bowel sounds, soft, nontender, no hepatosplenomegaly Musculoskeletal: Extremities: extremities normal to inspection; no cyanosis and no clubbing Skin: no rashes, warm and dry Neurologic: moves all extremities and awake; no focal motor deficits Psychiatric: A+Ox3, euthymic affect Lymphatic: no lymphedema Results & Data Results & Data ([facility]) Vital Signs (Past 12 Hours) Vital Signs Temp Pulse Pulse Resp BP Pulse Ox 10/07/20 12:01 36.6 C 89 19 110/65 94 10/07/20 08:04 36.4 C L 81 18 125/65 93 10/07/20 08:00 80 10/07/20 03:17 36.2 C L 85 18 113/64 94 Laboratory Results 10/07/20 10/07/20 10/07/20 Range/Units 11:23 10:20 10:20 WBC (4.8-10.8) K/uL RBC (4.7-6.1) M/uL Hgb (14.0-18.0) g/dL Hct (42-52) % MCV (80-100) fL MCH (25-34) pg MCHC (32-36) g/dL RDW Std Deviation (36.4-46.3) fL RDW Coeff of [place] (11.5-14.5) % Plt Count (130-400) K/uL MPV (7.4-10.4) fL Immature Gran % (Auto) % Neut % (Auto) % Lymph % (Auto) % [place] % (Auto) % Eos % (Auto) % Baso % (Auto) % Neut # (Auto) (1.4-6.5) K/uL Lymph # (Auto) (1.2-3.4) K/uL [place] # (Auto) (0.11-0.59) K/uL Eos # (Auto) (0-0.5) K/uL Baso # (Auto) (0-0.2) K/uL Immature Gran # (Auto) (0.00-0.02) K/uL PT 33.7 H (9.0-12.0) Seconds INR 3.7 H (0.9-1.1) Sodium 142 (136-145) mmol/L Potassium 3.4 L (3.5-5.1) mmol/L Chloride 106 (98-107) mmol/L Carbon Dioxide 33 H (21-32) mmol/L Anion Gap 3.0 (3-11) BUN 31 H (7-18) mg/dl Creatinine 0.85 (0.6-1.4) mg/dl Est Cr Clr Drug Dosing 64.0 ml/min Est GFR ( Amer) 100.9 Est GFR (Non-Af Amer) 87.1 BUN/Creatinine Ratio 35.9 H (10-20) Glucose 82 (70-99) mg/dl POC Glucose 83 (70-99) mg/dl Calcium 9.3 (8.5-10.1) mg/dl 10/07/20 10/07/20 10/07/20 Range/Units 10:20 07:25 04:05 WBC 9.01 (4.8-10.8) K/uL RBC 3.99 L (4.7-6.1) M/uL Hgb 13.4 L (14.0-18.0) g/dL Hct 39.1 L (42-52) % MCV 98.0 (80-100) fL MCH 33.6 (25-34) pg MCHC 34.3 (32-36) g/dL RDW Std Deviation 51.4 H (36.4-46.3) fL RDW Coeff of [place] 14.2 (11.5-14.5) % Plt Count 192 (130-400) K/uL MPV 12.1 H (7.4-10.4) fL Immature Gran % (Auto) 0.4 % Neut % (Auto) 81.0 % Lymph % (Auto) 9.5 % [place] % (Auto) 8.1 % Eos % (Auto) 1.0 % Baso % (Auto) 0.0 % Neut # (Auto) 7.29 H (1.4-6.5) K/uL Lymph # (Auto) 0.86 L (1.2-3.4) K/uL [place] # (Auto) 0.73 H (0.11-0.59) K/uL Eos # (Auto) 0.09 (0-0.5) K/uL Baso # (Auto) 0.00 (0-0.2) K/uL Immature Gran # (Auto) 0.04 H (0.00-0.02) K/uL PT (9.0-12.0) Seconds INR (0.9-1.1) Sodium (136-145) mmol/L Potassium (3.5-5.1) mmol/L Chloride (98-107) mmol/L Carbon Dioxide (21-32) mmol/L Anion Gap (3-11) BUN (7-18) mg/dl Creatinine (0.6-1.4) mg/dl Est Cr Clr Drug Dosing ml/min Est GFR ( Amer) Est GFR (Non-Af Amer) BUN/Creatinine Ratio (10-20) Glucose (70-99) mg/dl POC Glucose 83 258 H (70-99) mg/dl Calcium (8.5-10.1) mg/dl 10/07/20 10/06/20 10/06/20 Range/Units 00:12 19:52 16:25 WBC (4.8-10.8) K/uL RBC (4.7-6.1) M/uL Hgb (14.0-18.0) g/dL Hct (42-52) % MCV (80-100) fL MCH (25-34) pg MCHC (32-36) g/dL RDW Std Deviation (36.4-46.3) fL RDW Coeff of [place] (11.5-14.5) % Plt Count (130-400) K/uL MPV (7.4-10.4) fL Immature Gran % (Auto) % Neut % (Auto) % Lymph % (Auto) % [place] % (Auto) % Eos % (Auto) % Baso % (Auto) % Neut # (Auto) (1.4-6.5) K/uL Lymph # (Auto) (1.2-3.4) K/uL [place] # (Auto) (0.11-0.59) K/uL Eos # (Auto) (0-0.5) K/uL Baso # (Auto) (0-0.2) K/uL Immature Gran # (Auto) (0.00-0.02) K/uL PT (9.0-12.0) Seconds INR (0.9-1.1) Sodium (136-145) mmol/L Potassium (3.5-5.1) mmol/L Chloride (98-107) mmol/L Carbon Dioxide (21-32) mmol/L Anion Gap (3-11) BUN (7-18) mg/dl Creatinine (0.6-1.4) mg/dl Est Cr Clr Drug Dosing ml/min Est GFR ( Amer) Est GFR (Non-Af Amer) BUN/Creatinine Ratio (10-20) Glucose (70-99) mg/dl POC Glucose 369 H* 544 H* 238 H (70-99) mg/dl Calcium (8.5-10.1) mg/dl PG Care Time/CCT Total # of Minutes Spent Total Time Spent with Patient: Total time spent is greater than 50% in coordination of care (as documented) at patient's floor/unit and/or counseling patient: Coding Level of Care Code 55289 Subseq Hosp Care Lvl 3 Diagnoses Multifocal pneumonia J18.9 Acute maxillary sinusitis J01.00 Recurrence: non-recurrent Acute and chronic respiratory failure with hypoxia J96.21 COPD (chronic obstructive pulmonary disease) J44.1 COPD type: COPD with acute exacerbation H/O mechanical aortic valve replacement Z95.2 CAD (coronary artery disease) I25.10 Hypertension I10 Diabetes type 1, uncontrolled E10.65 Dyslipidemia E78.5 BPH NOS w ur obs/LUTS N40.1 Supratherapeutic INR R79.1 Oral candidiasis B37.0 DVT prophylaxis Z29.9 (1) Acute maxillary sinusitis Recurrence: non-recurrent Qualified Code(s): J01.00 - Acute maxillary sinusitis, unspecified (2) COPD (chronic obstructive pulmonary disease) COPD type: COPD with acute exacerbation Qualified Code(s): J44.1 - Chronic obstructive pulmonary disease with (acute) exacerbation
[2020-10-07] MEDS ORDERED: Nursing to Pharmacy Communication SCH (12:45)
[2020-10-07] MEDS ORDERED: FLUCONAZOLE 100 MG TAB PO SCH (13:00)
[2020-10-07] MEDS: DOCUSATE SODIUM 100 MG CAP PO SCH ×2 (13:42→21:09)
--- NOTE | 2020-10-07 14:32 | Pharmacy Report ---
Pharmacy Glycemic Short Note 2 - Date of Service October 07, 2020 - Glycemic Short BSG Results (Last 24 hours): 10/06/20 10/06/20 10/07/20 16:25 19:52 00:12 Glucose POC Glucose 238 H 544 H* 369 H* 10/07/20 10/07/20 10/07/20 04:05 07:25 10:20 Glucose 82 POC Glucose 258 H 83 10/07/20 11:23 Glucose POC Glucose 83 OUTPATIENT ANTIDIABETIC REGIMEN: * Tresiba 12 units HS, Humalog SSI * 10.8% A1c 04/2020 ASSESSMENT: 10/07: * Patient received ~100 units of insulin yesterday, of which 25 units were basal insulin * Will titrate up daily NPH this AM as BSG were not well controlled yesterday, will use 0.4 units/kg NPH to cover prednisone 40 * BSGs much better today, will loosen CR at lunch since more NPH now on board PLAN FOR INPATIENT GLYCEMIC CONTROL: * Hold outpatient oral diabetes medications * Basal insulin * Lantus 12 units HS * Bolus insulin * NovoLog per scale ACHS or Q6hrs while NPO * Goal Range: Low 110 mg/dL - High 140 mg/dL * Correction Factor: 30 mg/dL/unit * Nutritional / Prandial insulin per carb ratio of 1 unit per 11 grams CHO consumed PLAN FOR DISCHARGE: * tbd
[2020-10-07] MEDS ORDERED: WARFARIN SOD 4 MG TAB PO SCH (16:00)
[2020-10-07] MEDS: cefTRIAXone SODIUM 1,000 MG in DEXTROSE 5% 50 ML IV SCH (17:09)
[2020-10-07] MEDS ORDERED: INSULIN GLARGINE SOLOSTAR 100 UNITS/ML 3 ML PEN SC SCH (21:00)
[2020-10-08] MEDS: INSULIN ASPART 100 UNITS/ML 3 ML PEN SC SCH ×4 (00:50→13:05)
[2020-10-08] MEDS: CICLOPIROX~ORDER AWAITING ACTION SCH (01:16)
[2020-10-08] MEDS: AZELASTINE~ORDER AWAITING ACTION SCH (01:16)
[2020-10-08] MEDS: AVODART~ORDER AWAITING ACTION SCH (01:16)
[2020-10-08 06:40] LABS: Eosinophils # (auto) 0.11 K/uL (0-0.5); Eosinophils % (auto) 1.7 %; Hematocrit (blood only) 43.3 % (42-52); Hemoglobin 14.3 g/dL (14.0-18.0); Immature Granulocytes # (auto) 0.07 K/uL (0.00-0.02); Immature Granulocytes % (auto) 1.1 %; Mean Corpuscular Hemoglobin 32.6 pg (25-34); Mean Corpuscular Volume 98.6 fL (80-100); Mean Platelet Volume 12.4 fL (7.4-10.4); Monocytes # (auto) 0.71 K/uL (0.11-0.59); Neutrophils # (auto) 4.49 K/uL (1.4-6.5); Neutrophils % (auto) 69.2 %; Platelet Count 174 K/uL (130-400); RDW Coefficient of Variation 14.2 % (11.5-14.5); RDW Standard Deviation 51.6 fL (36.4-46.3); Red Blood Count 4.39 M/uL (4.7-6.1); White Blood Count 6.48 K/uL (4.8-10.8)
[2020-10-08 06:54] LABS: Prothrombin Time 27.6 Seconds (9.0-12.0)
[2020-10-08 07:06] LABS: Albumin Level 2.5 gm/dl (3.4-5.0); BUN Creatinine Ratio 33.3 (10-20); Calcium 9.1 mg/dl (8.5-10.1); Creatinine Clr Calc Pharmacy 70.9 ml/min; Est GFR (Non-African American) 89.7; Magnesium 1.7 mg/dl (1.8-2.4); Potassium 3.9 mmol/L (3.5-5.1)
[2020-10-08 07:08] LABS: Albumin Globulin Ratio 0.7 (0.9-2); Bilirubin,Total 0.7 mg/dl (0.2-1); Globulin 3.6 gm/dl (2.5-4.0); Total Protein 6.1 gm/dl (6.4-8.2)
[2020-10-08] MEDS ORDERED: MAGNESIUM SULFATE / D5W 1 GM/100 ML BAG IV ONE (08:00)
[2020-10-08] MEDS ORDERED: INSULIN HUMAN NPH SC SCH (08:00)
[2020-10-08] MEDS: NYSTATIN SUSP 500,000 U/5 ML UDC PO SCH (08:19)
[2020-10-08] MEDS: guaiFENesin 600 MG TABCR PO SCH (08:19)
[2020-10-08] MEDS: DULoxetine HCL 60 MG CAP PO SCH (08:19)
[2020-10-08] MEDS: ADVANCED PROBIOTIC 1250 MG CAPSULE PO SCH (08:19)
[2020-10-08] MEDS: DOCUSATE SODIUM 100 MG CAP PO SCH (08:19)
[2020-10-08] MEDS: FINASTERIDE 5 MG TAB PO SCH (08:19)
[2020-10-08] MEDS: ASPIRIN 81 MG ECTAB PO SCH (08:19)
[2020-10-08] MEDS: AZITHROMYCIN 250 MG TAB PO SCH (08:20)
[2020-10-08] MEDS: ATORVASTATIN 20 MG TAB PO SCH (08:20)
[2020-10-08] MEDS: PREGABALIN 100 MG CAP PO SCH (08:34)
[2020-10-08] MEDS: NYSTATIN CR 15 GM TUBE EXT SCH (08:34)
[2020-10-08] MEDS ORDERED: predniSONE 10 MG TABLET PO SCH (09:00)
--- NOTE | 2020-10-08 10:33 | Pharmacy Report ---
Pharmacy Glycemic Short Note 2 - Date of Service October 08, 2020 - Glycemic Short BSG Results (Last 24 hours): 10/07/20 10/07/20 10/07/20 10:20 11:23 16:21 Glucose 82 POC Glucose 83 100 H 10/07/20 10/08/20 10/08/20 20:50 00:14 04:03 Glucose POC Glucose 305 H* 214 H 186 H 10/08/20 10/08/20 06:10 07:09 Glucose 144 H POC Glucose 126 H OUTPATIENT ANTIDIABETIC REGIMEN: * Tresiba 12 units HS, Humalog SSI * 10.8% A1c 04/2020 ASSESSMENT: 10/08: * BSGs yesterday of 83, 83, 100, 305, and 214 mg/dL * Patient received 59 units of insulin (22 units of NPH, 12 units of Lantus, and 25 units of prandial/correctional) * Prednisone reduced from 40 to 30 mg PO daily starting today - will decrease NPH * Patient has T1DM - will be conservative with basal insulin adjustments 10/07: * Patient received ~100 units of insulin yesterday, of which 25 units were basal insulin * Will titrate up daily NPH this AM as BSG were not well controlled yesterday, will use 0.4 units/kg NPH to cover prednisone 40 * BSGs much better today, will loosen CR at lunch since more NPH now on board PLAN FOR INPATIENT GLYCEMIC CONTROL: * Hold outpatient oral diabetes medications * Basal insulin - decrease NPH * Lantus 12 units HS * NPH 18 units SC daily with prednisone 30 mg * Bolus insulin * NovoLog per scale ACHS or Q6hrs while NPO * Goal Range: Low 110 mg/dL - High 140 mg/dL * Correction Factor: 40 mg/dL/unit * Nutritional / Prandial insulin per carb ratio of 1 unit per 11 grams CHO consumed PLAN FOR DISCHARGE: * Patient follows with [facility] endocrinology (last seen in August of this year) * Ensure timely outpatient follow-up upon discharge * Patient to be discharged with prednisone taper - suggest weight-based NPH with prednisone * Prednisone 20 mg - NPH 12 units (~0.2 unit/kg) * Prednisone 10 mg - NPH 6 units (0.1 unit/kg)
--- NOTE | 2020-10-08 11:37 | Discharge Summary ---
Date of Service October 08, 2020 Admission HPI Per Admitting Provider 74yo male with chronic hypoxic respiratory failure on home O2 4 liters, h/o mechanical aortic valve, CAD, COPD, T1DM - presents with at least 1 week of weakness, cough, shortness of breath above baseline, muscle aches, and extreme fatigue. "This has hit me like a ton of bricks." No loss of taste/smell. No sick contacts. No obvious COVID contacts. Has been vaccinated against COVID - received both doses. Lives with and daughter in [place]. Cough is productive of yellow/brown sputum. Denies chest pain, abd pain, nausea, vomiting, or diarrhea. He was prescribed prednisone a few days ago by Primo BARRAZA for his COPD flare. Last dose - yesterday. Has occasional coughing with eating/drinking ("not very often"). Principal Diagnosis Pneumonia, Acute on chronic hypoxic respiratory failure, Acute maxillary sinusitis, COPD exacerbation Discharge Exam Constitutional + thin and + cachectic; no acute distress Eyes + anicteric sclerae ENMT Mouth: + oropharynx abnormality (mild white exudate on tongue, no erythema) Neck trachea midline, no thyromegaly Respiratory normal respiratory effort Auscultation: + crackles (at bases bilat) and + wheezes (a few scattered wheezes); no rhonchi Cardiovascular Rate/Rhythm: regular rate and regular rhythm (with frequent extra beats) Heart Sounds: + murmur (2/6 PRASHANT at RUSB); + abnormal S2 (loud click) Chest (Breasts) Chest: normal inspection of chest Gastrointestinal (Abdomen) normal bowel sounds, soft, nontender, no hepatosplenomegaly Musculoskeletal Extremities: extremities normal to inspection; no cyanosis and no clubbing Skin no rashes, warm and dry Neurologic moves all extremities and awake; no focal motor deficits Psychiatric A+Ox3, euthymic affect Lymphatic no lymphedema Discharge Data Allergies Allergy/AdvReac Type Severity Reaction Status Date / Time latex AdvReac Intermediate Rash Verified 10/05/20 16:01 propoxyphene AdvReac Intermediate panic Verified 10/05/20 21:40 [From Tiffanie-Janice] attack Consultations 10/05/20 15:18 ED Decision to Admit Stat Ordered Studies Chest X-Ray 10/05/20 13:16 XR chest 1V portable CLINICAL HISTORY: Shortness of breath. COMPARISON STUDY: Chest radiograph July 16, 2020. FINDINGS: Median sternotomy wires are noted as well as a left atrial occluder device. There is no pneumothorax. Severe emphysema is present. Cardiac size is normal. Moderate left mid and lower lung airspace opacity is present. There is also mild right basilar opacity. These have developed since prior exam. IMPRESSION: 1. Interval development of bilateral airspace opacities, greater within the left lung. The findings favor multifocal pneumonia. Radiographic follow-up to ensure resolution is recommended. 2. Emphysema. ACT 112: Negative or not required by law. Electronically signed by: Raffy Crespo M.D. 10/05/2020 2:[address] 10/05/20 13:[address] DOSE: 469.65 mGycm HISTORY: Weakness. Altered mental status. TECHNIQUE: Multiaxial CT images of the head were performed without the use of intravenous contrast. Automated exposure control was utilized for this study. A dose lowering technique was utilized adhering to the principles of ALARA. Comparison: Brain MRI 06/07/2020. Findings: Small fluid level within the left maxillary sinus. The mastoid air cells are clear. The calvarium and skull base are intact. There is no mass, hematoma, midline shift, acute infarct. White matter hypodensity is nonspecific but suggestive of microvascular ischemic change. The ventricles and sulci demonstrate mild age-related involutional changes. 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 Impression: No acute intracranial abnormality. Atrophy and microvascular ischemic changes. Small fluid level within the left maxillary sinus likely representing acute sinusitis. ACT 112: Negative or not required by law. Electronically signed by: Farhan Michaels M.D. 10/05/2020 3:10 PM Hospital Course (1) Multifocal pneumonia: Bacterial multilobular pneumonia COVID negative on 09/28 and then again on admission. Completed his COVID vaccine series. Flu/RSV negative. Received 4 days of Rocephin/Zithromax. No recent hospital admission; defer on gram negative coverage for now but low threshold for such if any worsening given his advanced COPD. - Patient feels less dyspneic today and his hypoxia is improved, doing much better, stronger Blood cultures- NGTD NC O2 support- hypoxia improved back to baseline 4LNC and POx 92% Mucolytics, continue usual inhalers, etc. - improved sinus congestion and nasal drainage reported by patient. Pneumonia is b/l lower lobes. Seen by Speech therapy and no overt aspiration on bedside swallow assessment. Has poor/no dentition and easy to chew diet recommended -dc to home on azithro and cefdinir, prednisone taper needs repeat CXR in 3-4 weeks to ensure resolution of PNA (2) Acute maxillary sinusitis: as seen on head CT. Rocephin will cover this well. - As above, sinus congestion subjectively better (3) Acute and chronic respiratory failure with hypoxia: On home O2 chronically via nasal cannula. Mild increase in O2 requirement on admission with increased work of breathing. Was requiring 6LNC on admission and now improved to baseline 4LNC acute component 2nd to pneumonia as well as mild COPD exacerbation. - current treatment for both COPD and pneumonia is sufficient. No changes (4) COPD (chronic obstructive pulmonary disease): with mild COPD exacerbation. on chronic prednisone 10mg daily for the last 2 weeks at home. follows with Primo BARRAZA. increased prednisone to 40mg daily then taper as he improves.-tapered down to 30mg for tomorrow and then down by 10mg q2 days cont usual inhalers -continue nebulizers prn mucolytics, NaCl nebs (takes these chronically), etc. f/u with PULM after discharge (5) H/O mechanical aortic valve replacement: INR goal 2.5 to 3.5 supratherapeutic INR here initially likely due to poor diet last few days prior to admission, plus took one dose of diflucan at home and was on prednisone. APpetite now improved but also on antibiotics that could drive up the INR Coumadin was held on Thursday 10/05, he received 4mg on 10/06 and then coumadin HELD on 10/07 for INR 3.7 Home dose is: 4mg 5x per week and 6mg 2 days per week ( and Thursday) INR 3.0 on day of discharge (10/08)--> restart usual coumadin dosing and check home INR in 2 days and Cardiology office to manage after that. He did receive one more dose of diflucan while here fo rthrush and also on azithro and Rocephin/cefdinir Discussed all care plan with table tender/daughter, Jacey (6) CAD (coronary artery disease): noted no ischemic symptoms at this time cont, asa, statin uncertain why he is not on beta merline (due to COPD??) - Patient BB recently discontinued in August secondary to low blood pressures at home. Recommend he be started back on this if possible but BPs remain soft at times -f/u with PCP and Cardiology as outpt (7) Hypertension: controlled cont outpatient meds (8) Diabetes type 1, uncontrolled: anticipate significant lability and vqisrmsvb-hk-ielguia BSGs due to steroids and stress pharmacy glycemic consult placed for severe hyperglycemia here in the 500s a1c in 04/2020 was >10% - Pharmacy consult appreciated with long standing steroid use and now with burst therapy of prednisone Plan for home: Continue Tresiba 12 units qhs, Continue usual Humalog sliding scale tid with meals; ADD ON NPH 18 units daily, then 12 units daily x 2 days, then 6 units daily x 2 days, then STOP while on corresponding 30mg, 20mg, and 10mg of prednisone f/u with Endocrine Again, discussed care with daughter Jacey who is table tender (9) Dyslipidemia: cont statin (10) BPH NOS w ur obs/LUTS: continue dutasteride (11) Supratherapeutic INR: as above (12) DVT prophylaxis: coumadin Dispo-stable for dc to home seen by PT and ok for home Total Time Total Time Spent Total Time Spent (In Minutes): 40 min Total Time Includes: Examination of the Patient, Discharge Planning and Medication Reconciliation Discharge Plan Discharge Items Patient Disposition: Home - Self-Care Reason For Visit: B/L PNEUMONIA Discharge Diagnosis: Bilateral pneumonia, Acute on chronic hypoxic respiratory failure, COPD exacerbation Condition on Discharge: Good Activity: As commented below Bathing: No limitations Exercise/Sports: Gradually increase as tolerated Non-emergency contact: Primary Care Provider and Rail Crew Member Call non-emergency contact if: you have any medication questions, your symptoms worsen and you have a fever Follow-up/Referrals: Rajeev Alicea, [Primary Care Provider] - 10/15/20 11:30 am (Follow up within 1-2 weeks) Diet: Carb Count or DM1 and Heart Healthy Addtl Attending Provider Instructions: Please finish out the course of antibiotics as prescribed: azithromycin 250mg once daily x 1 more day and cefdinir 300mg twice a day x 4 more days. Your prednisone taper will be 30mg once daily for tomorrow (10/09) and then taper down by 10mg every 2 days until gone. You should have a repeat chest xray in 3-4 weeks to ensure your pneumonia has completely resolved. Follow up with Primo Steel of Pulmonology within 2 weeks. As for your insulin, you will be prescribed NPH (the hospital will give you the remaining insulin in the vial he used here, along with syringes) for use ONLY WHILE ON THE PREDNISONE to be taken as follows: NPH 18 units in the morning on 10/09, then decrease to NPH 12 units each morning x 2 days then decrease to 6 units each morning x 2 days, then STOP. Your Tresiba and Humalog sliding scale will stay at the same dosing regimen. The NPH provides extra insulin while on the prednisone. Please continue on the Nystatin swish and swallow FOUR TIMES A DAY for your thrush in the mouth x 2 more weeks. You should check your PT/INR at home in 2 days (on 10/10) and make sure the Cardiology office knows that you have received Diflucan x 2 doses in the last week, as well as the antibiotics for your pneumonia (azithromycin and cefdinir). These medications can all affect your PT/INR. Continue on the Coumadin as per your usual home dosing for now. Follow up with your PCP within 1-2 weeks. Pending Studies at Discharge: Yes Stand-Alone Forms: My [facility] Medications and DC Order Prescriptions: New azithromycin 250 mg Tablet 250 mg PO QAM Qty: 1 RF: 0 Novolin N NPH U-100 Insulin 100 unit/mL Suspension 18 unit SC DAILY@0800 Qty: 10 RF: 0 guaifenesin [Mucinex] 600 mg Tablet Extended Release 12hr 1,200 mg PO Q12 7 Days Qty: 28 RF: 0 cefdinir 300 mg capsule 300 mg PO BID 4 Days Qty: 8 RF: 0 Continued Glucagon Emergency Kit (human) 1 mg recon soln 1 mg SQ Q20M PRN (Reason: hypoglycemia) Qty: 2 RF: 2 duloxetine [Cymbalta] 60 mg capsule,delayed release(DR/EC) 60 mg PO DAILY Qty: 90 RF: 1 ciclopirox 0.77 % cream 1 applic topical BID Qty: 90 RF: 0 nystatin 100,000 unit/gram cream 1 applic topical BID Qty: 30 RF: 5 azelastine 137 mcg (0.1 %) aerosol,spray 1 spray intranasal BID Qty: 3 RF: 1 atorvastatin 20 mg tablet 20 mg PO DAILY Qty: 90 RF: 2 pregabalin [Lyrica] 200 mg capsule 200 mg PO TID Qty: 90 RF: 0 aspirin [Adult Low Dose Aspirin] 81 mg tablet,delayed release (DR/EC) 81 mg PO DAILY RF: 0 (DME) Dexcom G6 Gasoline Plant Operator Misc See Rx Instructions .MEDSUPPLY Qty: 1 RF: 0 (DME) Dexcom G6 Sensor Device See Rx Instructions .MEDSUPPLY Qty: 3 RF: 11 (DME) Dexcom G6 Transmitter Device See Rx Instructions .MEDSUPPLY Qty: 1 RF: 3 dutasteride 0.5 mg capsule 0.5 mg PO DAILY Qty: 90 RF: 3 dtntyonsak-njiezlcm-dqyaftajxc [Breztri Aerosphere] 160-9-4.8 mcg/actuation HFA aerosol inhaler 0 inh inhalation .UD RF: 0 sodium chloride 7 % solution for nebulization 4 ml inhalation BID Qty: 240 RF: 5 albuterol sulfate 2.5 mg /3 mL (0.083 %) solution for nebulization 2.5 mg inhalation Q4H PRN (Reason: shortness of breath or wheezing) Qty: 180 RF: 3 albuterol sulfate [ProAir HFA] 90 mcg/actuation HFA aerosol inhaler 2 puff INH Q6H PRN (Reason: shortness of breath or wheezing) RF: 0 warfarin 4 mg tablet 4 mg PO 5XWK RF: 0 warfarin 6 mg Tablet 6 mg PO 2XWK RF: 0 Tresiba FlexTouch U-100 100 unit/mL (3 mL) insulin pen 12 unit SQ HS RF: 0 insulin lispro [Humalog KwikPen Insulin] 100 unit/mL insulin pen 0 unit subcut TID RF: 0 Changed nystatin 100,000 unit/mL suspension 5 ml PO QID 14 Days Qty: 280 RF: 0 prednisone 10 mg tablet 30 mg PO DAILY Qty: 9 RF: 0 Discharge Orders: Discharge Order (Routine); Ordered 10/08/20 Ordered By: La Nena Billingsley Admission Data Admit Date/Time: 10/05/20 17:51 Attending Provider: Tussey,La Nena B. Admit Provider: Ck Loyd Primary Care Provider: Rajeev Alicea Other Providers: Ck Loyd Coding Level of Care Code D/C Day Management >30 mins Diagnoses Multifocal pneumonia J18.9 Acute maxillary sinusitis J01.00 Recurrence: non-recurrent Acute and chronic respiratory failure with hypoxia J96.21 COPD (chronic obstructive pulmonary disease) J44.1 COPD type: COPD with acute exacerbation H/O mechanical aortic valve replacement Z95.2 CAD (coronary artery disease) I25.10 Hypertension I10 Diabetes type 1, uncontrolled E10.65 Dyslipidemia E78.5 BPH NOS w ur obs/LUTS N40.1 Supratherapeutic INR R79.1 DVT prophylaxis Z29.9
[2020-10-11] MEDS ORDERED: WARFARIN SOD 6 MG TAB PO SCH (16:00)
== END 2020-10-08 12:55 | disposition home or self-care (01) | DRG 193 ==
LOC: ED 12:37 → SUATTDRO 17:51 → 2S 17:51

== ENCOUNTER 2020-11-05 12:23 | Observation (INO) ==
--- NOTE | 2020-11-05 12:55 | Emergency Department Note ---
Impression & Plan Breathlessness, Leg swelling, Elevated lactic acid level, Atypical chest pain, Muscle cramps ED Provider Note Provider: Darian Wallace MD DATE OF SERVICE: 11/05/2020 CHIEF COMPLAINT: Myalgias, shortness of breath HISTORY OF PRESENT ILLNESS: Patient is a 75-year-old gentleman significant past medical history including COPD with chronic oxygen usage, BPH, type 1 diabetes, CAD status post CABG and mechanical aortic valve replacement on Coumadin, recent hospitalization for multifocal pneumonia approximately a month ago presenting here today with daughter reporting over the past approximately 3 days experienced some worsening shortness of breath, sinus drainage, and cough. Reporting that time diffuse body bulges as well. No fevers reported or syncope. Patient has had a little bit more unsteady. Reported day or so ago some left axillary chest discomfort now more some discomfort across the anterior chest. Denies significant nausea, vomiting, abdominal pain, or diarrhea. Has been on Augmentin for the past 2 days as well as increasing his prednisone back up to 40 mg from 20 mg discussed with pulmonary. Patient has noted some increased swelling in the bilateral lower extremities. Patient states compliance with home medications otherwise including his Coumadin. REVIEW OF SYSTEMS: A total of 10 review of systems was obtained and negative except as stated above in the HPI. PAST MEDICAL HISTORY: As noted above MEDICATIONS: Reviewed home medications includes Coumadin SOCIAL HISTORY: Smoker, lives at home on home oxygen with PHYSICAL EXAM: GENERAL: alert and oriented in no acute distress on stretcher Head: normocephalic and atraumatic EYES: No injection, discharge or icterus. NECK: Trachea midline. ENT: Mucous membranes pink and moist. LUNGS: Airway patent. No retractions. Breath sounds with good air movement with slight expiratory wheeze. HEART: Regular rate and rhythm. No chest wall tenderness ABDOMEN: Soft and non-tender, without guarding or rebound. SKIN: Acyanotic, warm, dry, without rashes EXTREMITIES: 2+ bilateral lower extremity edema with slight tenderness. No significant erythema here. No significant swelling or edema noted of the upper extremities. NEUROLOGICAL: No focal deficits. No aphasia. No facial droop or slurred speech. EK bpm normal sinus rhythm with PAC. No acute ST segment elevation or depression appreciated. QTc 432. CONTINUOUS CARDIAC MONITORING: was ordered and showed a heart rate of 80s to 90s bpm in normal sinus rhythm rare PAC Patient's laboratory studies and imaging reviewed. Differential includes Infection, dehydration, metabolic abnormality, hypo/hyperglycemia, electrolyte disturbance, anemia, hypoxia, cardiac sources, intracerebral event, toxicologic, neurologic, as well as other pathologies. IMPRESSION/MEDICAL DECISION MAKING: Patient and daughter report increasing myalgias and shortness of breath over the past approximately 3 days. No fevers reported or sick contact. Covid test was negative here today. Chest x-ray appears improving per my review and radiology. Do not see evidence of pneumonia. No fevers reported. Has been on increased prednisone for the past 3 days of 40 mg including taken this morning. Has been on Augmentin for 5 doses as well at home for presumed pneumonia but again do not see that here today. Do not see a clear bacterial infection here at this time without significant leukocytosis or elevated procalcitonin. Lactate is slightly elevated 2.9 and has stigmata of increased lower extremity edema. While the BNP is not significantly elevated and no signs of pulmonary edema, do question some pulse component of some right heart failure symptoms versus just dependent edema. We will give a small dose of Lasix. Renal function otherwise is at [facility] as is his electrolytes. Troponin slightly detectable but not abnormal and EKG is without significant acute ischemic changes for STEMI at this point. Pain is predominantly in the lower thoracic region with some slight radiation to the anterior chest. Would be an atypical chest pain case. Lower suspicion for acute ACS/MN Patient is already anticoagulated & I doubt acute PE. Patient has had prior aortic graft repair and I doubt acute dissection. Benign abdomen otherwise. Negative in fluenza testing in addition to Covid. Question if he could be experiencing some amount of COPD exacerbation with symptom moving air fairly clearly. We will give some IV magnesium and DuoNeb to see if this help with the symptoms in addition to the Lasix to see if this helps with the swelling. Do not see recent echocardiogram in the system but the patient does get some care out of state in [place] where he had the valve replacement. Given atypical chest discomfort and the leg swelling a repeat echocardiogram may be beneficial. At this time discussed the findings with the patient and the daughter. Given that he is feeling a bit unsteady on his feet with significant myalgias and shortness of breath although not requiring increased amount of oxygen here (on home 4 L in the mid 90s SpO2) in shared decision-making we will pursue further observation here to see if his symptoms improve with some diuresis and to see if further etiologies are elucidated. Hospitalist was contacted. DIAGNOSIS: Shortness of breath, lower extremity edema, muscle cramps, elevated lactic acid level, atypical chest pain DISPOSITION: Hospitalist will evaluate Patient was agreeable with this plan. Past Med/Surg History Medical History (Updated 11/05/20 @ 17:27 by Christiano Pratt PA-C) Abnormal weight loss Aortic stenosis Ascending aortic aneurysm Bicuspid aortic valve CAD (coronary artery disease) Chronic respiratory failure with hypoxia Chronic respiratory failure with hypoxia, on home oxygen therapy COPD (chronic obstructive pulmonary disease) Diabetes type 1, uncontrolled Diabetic peripheral neuropathy associated with type 1 diabetes mellitus Dysesthesia Dyslipidemia Fungal skin infection Hypertension 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 Multifocal pneumonia Smoking Squamous cell carcinoma of right ear Venous insufficiency Surgical History (Updated 11/05/20 @ 17:27 by Christiano Pratt PA-C) H/O bilateral cataract extraction H/O mechanical aortic valve replacement History of hernia repair 2007 S/P ascending aortic aneurysm repair S/P AVR (aortic valve replacement) S/P CABG x 1 Family History Sister Breast cancer 3 sisters Colorectal cancer Brother COPD (chronic obstructive pulmonary disease) half brother Prostate cancer half brother Father Heart disease Myocardial infarction Daughter Diabetes Denies family history of Ovarian cancer Lung cancer Social History Smoking Status: Light tobacco smoker Tobacco Type: Pipe Age Started Using Tobacco: 20; Cigarettes Per Day: 2 cigars per day and pipe; Second Hand Exposure: Yes (daughter); Hx Alcohol Use: No Hx Substance Use: No Preferred Language: [place] Island[place] Communication Ability: Effective Visual Impairment: Limited Hearing Ability: Normal Tour Sales Representative Required: No Beliefs That Will Affect Care: None marital status: Current Living Situation: Spouse Current Living Situation Comment: spouse and daughter in [place] current occupational status: retired current occupation: [employer] How many Children do You have: 1 Feels Safe at Home: Yes Childhood Exposure to Second-Hand Smoke: No caffeine: Yes (coffee) Dental Care, Regularly: No Physical Activity Frequency: 3-4 Times per Week Seatbelt Use: always Sunscreen Use: No Assistive Devices: Oxygen - Continuous Allergies Allergies Allergy/AdvReac Type Severity Reaction Status Date / Time latex AdvReac Intermediate Rash Verified 11/05/20 14:37 propoxyphene AdvReac Intermediate panic Verified 11/05/20 14:37 [From TiffanieJanice] attack Home Meds Home Medications Medication Instructions Recorded Confirmed aspirin 81 mg tablet,delayed 81 mg PO QAM 02/10/20 11/05/20 release Tresiba FlexTouch U-100 13 unit SQ HS 10/05/20 11/05/20 albuterol sulfate [ProAir HFA] 2 puff INH Q6H PRN 10/05/20 11/05/20 insulin lispro [Humalog KwikPen 0 unit SUBCUT TID 10/05/20 11/05/20 Insulin] warfarin 4 mg PO UD 10/05/20 11/05/20 warfarin 6 mg PO UD 10/05/20 11/05/20 prednisone 10 mg tablet 40 mg PO QAM tab 10/15/20 11/05/20 amoxicillin-pot clavulanate 1 tab PO BID 11/05/20 11/05/20 atorvastatin 20 mg PO QPM 11/05/20 11/05/20 duloxetine [Cymbalta] 60 mg PO QAM 11/05/20 11/05/20 dutasteride 0.5 mg PO QAM 11/05/20 11/05/20 fluticasone furoate-vilanterol 1 inh INHALATION DAILY 11/05/20 11/05/20 [Breo Ellipta] Previous Rx's Medication Instructions Recorded glucagon (human recombinant) 1 mg 1 mg SQ Q20M PRN #2 ea 02/02/20 solution for injection Dexcom G6 Aoc Operations Intelligence Chief #1 ea NS 02/23/20 Dexcom G6 Sensor #3 ea NS 02/23/20 Dexcom G6 Transmitter #1 ea NS 02/23/20 ciclopirox 0.77 % topical cream 1 applic TOPICAL BID #90 g 06/01/20 sodium chloride 7 % for 4 ml INHALATION BID #240 ml 07/13/20 nebulization nystatin 100,000 unit/gram topical 1 applic TOPICAL BID #30 g 07/26/20 cream azelastine 137 mcg (0.1 %) nasal 1 spray INTRANASAL BID #3 btl 08/30/20 spray aerosol nystatin 5 ml PO QID 14 Days #280 ml 04/12/21 albuterol sulfate 2.5 mg INHALATION Q4H PRN #360 ml 10/19/20 blood sugar diagnostic #50 ea 10/19/20 pregabalin 200 mg capsule 200 mg PO TID #90 cap 10/26/20 Results & Data (ED) Vital Signs Vital Signs - 24 hr 11/05/20 12:25 11/05/20 12:45 11/05/20 13:20 Temperature 36.9 C Temperature Source Oral Pulse Rate 102 H 104 H 94 H Pulse Rate [Left Apical] Pulse Rate from SpO2 Sensor 94 H 94 H Pulse Rhythm Regular Pulse Rhythm [Left Apical] Pulse Strength [Left Apical] Respiratory Rate 18 22 24 Respiratory Effort / Characteristics Non-Labored Spontaneous Respiratory Depth Normal Respiratory Pattern Regular Blood Pressure 107/65 117/60 Blood Pressure [Right Arm] Blood Pressure Mean 79 79 Blood Pressure Mean [Right Arm] Blood Pressure Position [Right Arm] Pulse Oximetry 93 97 97 Oxygen Delivery Method Nasal Cannula Oxygen Flow Rate 5 Sepsis Recent Fever Within 48 Hours No Sepsis New/Unexplained Change in Mental Status No Sepsis Action Taken by Nursing No Action Required 11/05/20 13:30 11/05/20 13:40 11/05/20 13:46 Temperature Temperature Source Pulse Rate 91 H 90 Pulse Rate [Left Apical] 89 Pulse Rate from SpO2 Sensor 92 H 91 H Pulse Rhythm Pulse Rhythm [Left Apical] Regular Pulse Strength [Left Apical] Normal Respiratory Rate 19 20 20 Respiratory Effort / Characteristics Non-Labored Spontaneous Respiratory Depth Normal Respiratory Pattern Regular Blood Pressure Blood Pressure [Right Arm] 117/60 Blood Pressure Mean Blood Pressure Mean [Right Arm] 79 Blood Pressure Position [Right Arm] Lying Pulse Oximetry 98 99 99 Oxygen Delivery Method Nasal Cannula Oxygen Flow Rate 2 Sepsis Recent Fever Within 48 Hours Sepsis New/Unexplained Change in Mental Status Sepsis Action Taken by Nursing 11/05/20 13:50 11/05/20 14:00 11/05/20 14:10 Temperature Temperature Source Pulse Rate 89 89 85 Pulse Rate [Left Apical] Pulse Rate from SpO2 Sensor 89 89 85 Pulse Rhythm Pulse Rhythm [Left Apical] Pulse Strength [Left Apical] Respiratory Rate 15 19 17 Respiratory Effort / Characteristics Respiratory Depth Respiratory Pattern Blood Pressure Blood Pressure [Right Arm] Blood Pressure Mean Blood Pressure Mean [Right Arm] Blood Pressure Position [Right Arm] Pulse Oximetry 99 98 99 Oxygen Delivery Method Oxygen Flow Rate Sepsis Recent Fever Within 48 Hours Sepsis New/Unexplained Change in Mental Status Sepsis Action Taken by Nursing 11/05/20 14:20 11/05/20 14:30 11/05/20 14:40 Temperature Temperature Source Pulse Rate 87 89 83 Pulse Rate [Left Apical] Pulse Rate from SpO2 Sensor 87 88 83 Pulse Rhythm Pulse Rhythm [Left Apical] Pulse Strength [Left Apical] Respiratory Rate 17 22 16 Respiratory Effort / Characteristics Respiratory Depth Respiratory Pattern Blood Pressure Blood Pressure [Right Arm] Blood Pressure Mean Blood Pressure Mean [Right Arm] Blood Pressure Position [Right Arm] Pulse Oximetry 98 97 96 Oxygen Delivery Method Oxygen Flow Rate Sepsis Recent Fever Within 48 Hours Sepsis New/Unexplained Change in Mental Status Sepsis Action Taken by Nursing 11/05/20 14:50 11/05/20 15:00 11/05/20 15:10 Temperature Temperature Source Pulse Rate 83 84 86 Pulse Rate [Left Apical] Pulse Rate from SpO2 Sensor 83 84 85 Pulse Rhythm Pulse Rhythm [Left Apical] Pulse Strength [Left Apical] Respiratory Rate 17 16 18 Respiratory Effort / Characteristics Respiratory Depth Respiratory Pattern Blood Pressure Blood Pressure [Right Arm] Blood Pressure Mean Blood Pressure Mean [Right Arm] Blood Pressure Position [Right Arm] Pulse Oximetry 96 95 96 Oxygen Delivery Method Oxygen Flow Rate Sepsis Recent Fever Within 48 Hours Sepsis New/Unexplained Change in Mental Status Sepsis Action Taken by Nursing 11/05/20 15:20 11/05/20 15:30 11/05/20 15:40 Temperature Temperature Source Pulse Rate 86 89 85 Pulse Rate [Left Apical] Pulse Rate from SpO2 Sensor 86 89 85 Pulse Rhythm Pulse Rhythm [Left Apical] Pulse Strength [Left Apical] Respiratory Rate 18 14 14 Respiratory Effort / Characteristics Respiratory Depth Respiratory Pattern Blood Pressure Blood Pressure [Right Arm] Blood Pressure Mean Blood Pressure Mean [Right Arm] Blood Pressure Position [Right Arm] Pulse Oximetry 96 97 95 Oxygen Delivery Method Oxygen Flow Rate Sepsis Recent Fever Within 48 Hours Sepsis New/Unexplained Change in Mental Status Sepsis Action Taken by Nursing 11/05/20 15:43 11/05/20 15:44 11/05/20 15:48 Temperature Temperature Source Pulse Rate 82 82 Pulse Rate [Left Apical] 83 Pulse Rate from SpO2 Sensor 82 83 Pulse Rhythm Pulse Rhythm [Left Apical] Pulse Strength [Left Apical] Respiratory Rate 19 22 22 Respiratory Effort / Characteristics Non-Labored Spontaneous Respiratory Depth Respiratory Pattern Blood Pressure 133/72 Blood Pressure [Right Arm] Blood Pressure Mean 92 Blood Pressure Mean [Right Arm] Blood Pressure Position [Right Arm] Pulse Oximetry 96 96 97 Oxygen Delivery Method Nasal Cannula Oxygen Flow Rate 4 Sepsis Recent Fever Within 48 Hours Sepsis New/Unexplained Change in Mental Status Sepsis Action Taken by Nursing 11/05/20 15:50 11/05/20 16:00 11/05/20 16:10 Temperature Temperature Source Pulse Rate 84 81 82 Pulse Rate [Left Apical] Pulse Rate from SpO2 Sensor 84 81 82 Pulse Rhythm Pulse Rhythm [Left Apical] Pulse Strength [Left Apical] Respiratory Rate 25 H 19 17 Respiratory Effort / Characteristics Respiratory Depth Respiratory Pattern Blood Pressure Blood Pressure [Right Arm] Blood Pressure Mean Blood Pressure Mean [Right Arm] Blood Pressure Position [Right Arm] Pulse Oximetry 98 94 93 Oxygen Delivery Method Oxygen Flow Rate Sepsis Recent Fever Within 48 Hours Sepsis New/Unexplained Change in Mental Status Sepsis Action Taken by Nursing 11/05/20 16:20 11/05/20 16:30 11/05/20 16:40 Temperature Temperature Source Pulse Rate 96 H 80 87 Pulse Rate [Left Apical] Pulse Rate from SpO2 Sensor 97 H 78 87 Pulse Rhythm Pulse Rhythm [Left Apical] Pulse Strength [Left Apical] Respiratory Rate 18 20 22 Respiratory Effort / Characteristics Respiratory Depth Respiratory Pattern Blood Pressure Blood Pressure [Right Arm] Blood Pressure Mean Blood Pressure Mean [Right Arm] Blood Pressure Position [Right Arm] Pulse Oximetry 94 98 98 Oxygen Delivery Method Oxygen Flow Rate Sepsis Recent Fever Within 48 Hours Sepsis New/Unexplained Change in Mental Status Sepsis Action Taken by Nursing 11/05/20 16:50 11/05/20 17:00 11/05/20 17:10 Temperature Temperature Source Pulse Rate 82 95 H 84 Pulse Rate [Left Apical] Pulse Rate from SpO2 Sensor 81 84 Pulse Rhythm Pulse Rhythm [Left Apical] Pulse Strength [Left Apical] Respiratory Rate 20 22 19 Respiratory Effort / Characteristics Respiratory Depth Respiratory Pattern Blood Pressure 127/75 Blood Pressure [Right Arm] Blood Pressure Mean 92 Blood Pressure Mean [Right Arm] Blood Pressure Position [Right Arm] Pulse Oximetry 99 97 Oxygen Delivery Method Oxygen Flow Rate Sepsis Recent Fever Within 48 Hours Sepsis New/Unexplained Change in Mental Status Sepsis Action Taken by Nursing 11/05/20 17:11 Temperature Temperature Source Pulse Rate 87 Pulse Rate [Left Apical] Pulse Rate from SpO2 Sensor 84 Pulse Rhythm Pulse Rhythm [Left Apical] Pulse Strength [Left Apical] Respiratory Rate 19 Respiratory Effort / Characteristics Respiratory Depth Respiratory Pattern Blood Pressure Blood Pressure [Right Arm] Blood Pressure Mean Blood Pressure Mean [Right Arm] Blood Pressure Position [Right Arm] Pulse Oximetry 96 Oxygen Delivery Method Oxygen Flow Rate Sepsis Recent Fever Within 48 Hours Sepsis New/Unexplained Change in Mental Status Sepsis Action Taken by Nursing Laboratory Data Result diagrams: 11/05/20 13:18 11/05/20 13:18 Lab Results 11/05/20 11/05/20 11/05/20 Range/Units 13:15 13:15 13:18 WBC 8.28 (4.8-10.8) K/uL RBC 4.67 L (4.7-6.1) M/uL Hgb 15.4 (14.0-18.0) g/dL Hct 47.5 (42-52) % MCV 101.7 H (80-100) fL MCH 33.0 (25-34) pg MCHC 32.4 (32-36) g/dL RDW Std Deviation 55.9 H (36.4-46.3) fL RDW Coeff of Randolph 14.9 H (11.5-14.5) % Plt Count 181 (130-400) K/uL MPV 12.8 H (7.4-10.4) fL Immature Gran % (Auto) 0.2 % Neut % (Auto) 94.2 % Lymph % (Auto) 2.9 % Sharkey % (Auto) 2.2 % Eos % (Auto) 0.5 % Baso % (Auto) 0.0 % Neut # (Auto) 7.80 H (1.4-6.5) K/uL Lymph # (Auto) 0.24 L (1.2-3.4) K/uL Sharkey # (Auto) 0.18 (0.11-0.59) K/uL Eos # (Auto) 0.04 (0-0.5) K/uL Baso # (Auto) 0.00 (0-0.2) K/uL Immature Gran # (Auto) 0.02 (0.00-0.02) K/uL PT (9.0-12.0) Seconds INR (0.9-1.1) APTT (21.0-31.0) Seconds PTT Ratio Sodium (136-145) mmol/L Potassium (3.5-5.1) mmol/L Chloride (98-107) mmol/L Carbon Dioxide (21-32) mmol/L Anion Gap (3-11) BUN (7-18) mg/dl Creatinine (0.6-1.4) mg/dl Est Cr Clr Drug Dosing ml/min Est GFR ( Amer) Est GFR (Non-Af Amer) BUN/Creatinine Ratio (10-20) Glucose (70-99) mg/dl Lactate (0.4-2.0) mmol/L Calcium (8.5-10.1) mg/dl Magnesium (1.8-2.4) mg/dl Total Bilirubin (0.2-1) mg/dl AST (15-37) U/L ALT (12-78) U/L Alkaline Phosphatase (45-117) U/L Troponin I (0-0.045) ng/ml NT-Pro-B Natriuret Pep (0-900) pg/ml Total Protein (6.4-8.2) gm/dl Albumin (3.4-5.0) gm/dl Globulin (2.5-4.0) gm/dl Albumin/Globulin Ratio (0.9-2) Lipase (73-393) U/L Procalcitonin (0-0.5) ng/ml TSH (0.300-4.500) uIu/ml Urine Color Urine Appearance (Clear) Urine pH (4.5-7.5) Ur Specific Capron (1.000-1.030) Urine Protein (Negative) Urine Glucose (UA) (Negative) Urine Ketones (Negative) Urine Blood (Negative) Urine Nitrite (Negative) Urine Bilirubin (Negative) Urine Urobilinogen (Negative) Ur Leukocyte Esterase (Negative) COVID-19 Eval Order CovFluRsv at [facility] SARS-CoV-2 (PCR) NEGATIVE (Negative) Influenza Type A (PCR) Negative (Neg) Influenza Type B (PCR) Negative (Neg) RSV (RT-PCR) Negative (Neg) 11/05/20 11/05/20 11/05/20 Range/Units 13:18 13:18 13:18 WBC (4.8-10.8) K/uL RBC (4.7-6.1) M/uL Hgb (14.0-18.0) g/dL Hct (42-52) % MCV (80-100) fL MCH (25-34) pg MCHC (32-36) g/dL RDW Std Deviation (36.4-46.3) fL RDW Coeff of Randolph (11.5-14.5) % Plt Count (130-400) K/uL MPV (7.4-10.4) fL Immature Gran % (Auto) % Neut % (Auto) % Lymph % (Auto) % Sharkey % (Auto) % Eos % (Auto) % Baso % (Auto) % Neut # (Auto) (1.4-6.5) K/uL Lymph # (Auto) (1.2-3.4) K/uL Sharkey # (Auto) (0.11-0.59) K/uL Eos # (Auto) (0-0.5) K/uL Baso # (Auto) (0-0.2) K/uL Immature Gran # (Auto) (0.00-0.02) K/uL PT 29.8 H (9.0-12.0) Seconds INR 3.2 H (0.9-1.1) APTT 34.8 H (21.0-31.0) Seconds PTT Ratio 1.3 Sodium 141 (136-145) mmol/L Potassium 4.1 (3.5-5.1) mmol/L Chloride 102 (98-107) mmol/L Carbon Dioxide 35 H (21-32) mmol/L Anion Gap 4.0 (3-11) BUN 19 H (7-18) mg/dl Creatinine 0.92 (0.6-1.4) mg/dl Est Cr Clr Drug Dosing 64.2 ml/min Est GFR ( Amer) 95.3 Est GFR (Non-Af Amer) 82.2 BUN/Creatinine Ratio 20.4 H (10-20) Glucose 99 (70-99) mg/dl Lactate 2.9 H* (0.4-2.0) mmol/L Calcium 10.1 (8.5-10.1) mg/dl Magnesium 1.9 (1.8-2.4) mg/dl Total Bilirubin 0.6 (0.2-1) mg/dl AST 22 (15-37) U/L ALT 37 (12-78) U/L Alkaline Phosphatase 100 (45-117) U/L Troponin I 0.026 (0-0.045) ng/ml NT-Pro-B Natriuret Pep 401 (0-900) pg/ml Total Protein 7.3 (6.4-8.2) gm/dl Albumin 3.6 (3.4-5.0) gm/dl Globulin 3.7 (2.5-4.0) gm/dl Albumin/Globulin Ratio 1.0 (0.9-2) Lipase (73-393) U/L Procalcitonin (0-0.5) ng/ml TSH 0.493 (0.300-4.500) uIu/ml Urine Color Urine Appearance (Clear) Urine pH (4.5-7.5) Ur Specific Capron (1.000-1.030) Urine Protein (Negative) Urine Glucose (UA) (Negative) Urine Ketones (Negative) Urine Blood (Negative) Urine Nitrite (Negative) Urine Bilirubin (Negative) Urine Urobilinogen (Negative) Ur Leukocyte Esterase (Negative) COVID-19 Eval Order SARS-CoV-2 (PCR) (Negative) Influenza Type A (PCR) (Neg) Influenza Type B (PCR) (Neg) RSV (RT-PCR) (Neg) 11/05/20 11/05/20 11/05/20 Range/Units 13:18 13:18 16:26 WBC (4.8-10.8) K/uL RBC (4.7-6.1) M/uL Hgb (14.0-18.0) g/dL Hct (42-52) % MCV (80-100) fL MCH (25-34) pg MCHC (32-36) g/dL RDW Std Deviation (36.4-46.3) fL RDW Coeff of Randolph (11.5-14.5) % Plt Count (130-400) K/uL MPV (7.4-10.4) fL Immature Gran % (Auto) % Neut % (Auto) % Lymph % (Auto) % Sharkey % (Auto) % Eos % (Auto) % Baso % (Auto) % Neut # (Auto) (1.4-6.5) K/uL Lymph # (Auto) (1.2-3.4) K/uL Sharkey # (Auto) (0.11-0.59) K/uL Eos # (Auto) (0-0.5) K/uL Baso # (Auto) (0-0.2) K/uL Immature Gran # (Auto) (0.00-0.02) K/uL PT (9.0-12.0) Seconds INR (0.9-1.1) APTT (21.0-31.0) Seconds PTT Ratio Sodium (136-145) mmol/L Potassium (3.5-5.1) mmol/L Chloride (98-107) mmol/L Carbon Dioxide (21-32) mmol/L Anion Gap (3-11) BUN (7-18) mg/dl Creatinine (0.6-1.4) mg/dl Est Cr Clr Drug Dosing ml/min Est GFR ( Amer) Est GFR (Non-Af Amer) BUN/Creatinine Ratio (10-20) Glucose (70-99) mg/dl Lactate (0.4-2.0) mmol/L Calcium (8.5-10.1) mg/dl Magnesium (1.8-2.4) mg/dl Total Bilirubin (0.2-1) mg/dl AST (15-37) U/L ALT (12-78) U/L Alkaline Phosphatase (45-117) U/L Troponin I (0-0.045) ng/ml NT-Pro-B Natriuret Pep (0-900) pg/ml Total Protein (6.4-8.2) gm/dl Albumin (3.4-5.0) gm/dl Globulin (2.5-4.0) gm/dl Albumin/Globulin Ratio (0.9-2) Lipase 199 (73-393) U/L Procalcitonin < 0.05 (0-0.5) ng/ml TSH (0.300-4.500) uIu/ml Urine Color Yellow Urine Appearance Clear (Clear) Urine pH 7.0 (4.5-7.5) Ur Specific Capron 1.017 (1.000-1.030) Urine Protein Negative (Negative) Urine Glucose (UA) 2+ H (Negative) Urine Ketones Negative (Negative) Urine Blood Negative (Negative) Urine Nitrite Negative (Negative) Urine Bilirubin Negative (Negative) Urine Urobilinogen Negative (Negative) Ur Leukocyte Esterase Negative (Negative) COVID-19 Eval Order SARS-CoV-2 (PCR) (Negative) Influenza Type A (PCR) (Neg) Influenza Type B (PCR) (Neg) RSV (RT-PCR) (Neg) Administered Medications Discontinued Medications Albuterol (Albut/Ipratrop 3mg/0.5mg Neb 3 Ml Vial) 3 ml NEB NOW STA Stop: 11/05/20 15:23 Last Admin: 11/05/20 15:48 Dose: 3 ml Documented by: [id number] Furosemide (Furosemide 40 Mg/4 Ml Vial) 40 mg IV NOW STA Stop: 11/05/20 15:23 Last Admin: 11/05/20 15:45 Dose: 40 mg Documented by: [id number] Magnesium Sulfate/Dextrose (Magnesium Sulfate / D5w) 1 gm in 100 mls @ 400 mls/hr IV Q15M MARIANA Stop: 11/05/20 15:37 Last Infusion: 11/05/20 16:01 Dose: 400 mls/hr Documented by: [id number] Admin: 11/05/20 15:45 Dose: 400 mls/hr Documented by: [id number] Imaging Data Radiologist's Impression: Chest X-Ray 11/05/20 12:40 XR chest 1V portable CLINICAL HISTORY: weakness COMPARISON STUDY: Chest radiograph October 05, 2020. FINDINGS: There is no pneumothorax or pleural effusion. There are median sternotomy wires and a left atrial occluder device. Severe emphysema is noted. Cardiac size is normal. Mediastinal contours are normal. Bilateral lower lung opacities have improved since exam of October 05, 2020. Minimal bibasilar opacities favor atelectasis. IMPRESSION: 1. Interval improvement in bilateral lower lung opacities. Residual lower lung opacities favor atelectasis. 2. Severe emphysema. ACT 112: Negative or not required by law. Electronically signed by: Raffy Crespo M.D. 11/05/2020 1:31 PM Discharge Plan Visit Data Chief Complaint: Dehydration Stated Complaint: POSSIBLE PNEUMONIA, DEHYDRATION ED Provider: Darian Wallace Discharge Problem: Breathlessness, Leg swelling, Elevated lactic acid level, Atypical chest pain, Muscle cramps Patient Disposition: Admitted As Inpatient Discharge Instructions Interventions: ED Discharge Assessment Last Done: 11/05/20 17:53
--- NOTE | 2020-11-05 13:32 | XRay Report ---
XR chest 1V portable CLINICAL HISTORY: weakness COMPARISON STUDY: Chest radiograph October 05, 2020. FINDINGS: There is no pneumothorax or pleural effusion. There are median sternotomy wires and a left atrial occluder device. Severe emphysema is noted. Cardiac size is normal. Mediastinal contours are n ormal. Bilateral lower lung opacities have improved since exam of October 05, 2020. Minimal bibasilar op acities favor atelectasis. IMPRESSION: 1. Interval improvement in bilateral lower lung opacities. Residual lower lung opacities favor atelec tasis. 2. Severe emphysema. ACT 112: Negative or not required by law. Electronically signed by: Raffy Crespo M.D. 11/05/2020 1:31 PM
[2020-11-05 13:51] LABS: Eosinophils # (auto) 0.04 K/uL (0-0.5); Eosinophils % (auto) 0.5 %; Hematocrit (blood only) 47.5 % (42-52); Hemoglobin 15.4 g/dL (14.0-18.0); Immature Granulocytes # (auto) 0.02 K/uL (0.00-0.02); Immature Granulocytes % (auto) 0.2 %; Lymphocytes # (auto) 0.24 K/uL (1.2-3.4); Lymphocytes % (auto) 2.9 %; Mean Corpuscular Hgb Conc 32.4 g/dL (32-36); Mean Corpuscular Volume 101.7 fL (80-100); Mean Platelet Volume 12.8 fL (7.4-10.4); Monocytes # (auto) 0.18 K/uL (0.11-0.59); Monocytes % (auto) 2.2 %; Neutrophils % (auto) 94.2 %; Platelet Count 181 K/uL (130-400); RDW Coefficient of Variation 14.9 % (11.5-14.5); RDW Standard Deviation 55.9 fL (36.4-46.3); Red Blood Count 4.67 M/uL (4.7-6.1); White Blood Count 8.28 K/uL (4.8-10.8)
[2020-11-05 14:01] LABS: INR 3.2 (0.9-1.1); Partial Thromboplastin Ratio 1.3; Partial Thromboplastin Time 34.8 Seconds (21.0-31.0); Prothrombin Time 29.8 Seconds (9.0-12.0)
[2020-11-05 14:08] LABS: Albumin Level 3.6 gm/dl (3.4-5.0); BUN Creatinine Ratio 20.4 (10-20); Calcium 10.1 mg/dl (8.5-10.1); Creatinine Clr Calc Pharmacy 64.2 ml/min; Est GFR (African American) 95.3; Est GFR (Non-African American) 82.2; Magnesium 1.9 mg/dl (1.8-2.4); Potassium 4.1 mmol/L (3.5-5.1)
[2020-11-05 14:19] LABS: Bilirubin,Total 0.6 mg/dl (0.2-1); Globulin 3.7 gm/dl (2.5-4.0); Thyroid Stimulating Hormone 0.493 uIu/ml (0.300-4.500); Total Protein 7.3 gm/dl (6.4-8.2); Troponin I 0.026 ng/ml (0-0.045)
[2020-11-05 14:50] LABS: Influenza A virus by PCR Negative (Neg); Influenza B virus by PCR Negative (Neg); RSV by PCR Negative (Neg); SARS CoV2 RNA(COVID-19) InHosp NEGATIVE (Negative)
[2020-11-05] MEDS ORDERED: ALBUT/IPRATROP 3MG/0.5MG NEB 3 ML VIAL NEB STA (15:22)
[2020-11-05] MEDS ORDERED: FUROSEMIDE 40 MG/4 ML VIAL IV STA (15:22)
[2020-11-05] MEDS ORDERED: MAGNESIUM SULFATE / D5W 1 GM/100 ML BAG IV SCH (15:23)
[2020-11-05 16:43] LABS: Appearance Urine Clear (Clear); Bilirubin Urine Negative (Negative); Blood Urine Negative (Negative); Color Urine Yellow; Glucose Urine UA 2+ (Negative); Ketones Urine Negative (Negative); Leukocyte Esterase Urine Negative (Negative); Nitrite Urine Negative (Negative); Protein Urine Negative (Negative); Specific Gravity Urine 1.017 (1.000-1.030); Urobilinogen Urine Negative (Negative)
--- NOTE | 2020-11-05 17:15 | History & Physical Report ---
Date of Service November 05, 2020 Assessment & Plan (1) COPD exacerbation: Mr. Mendez is a 75 year old male with a history of Bicuspid Aortic Valve with s/p Mechanical AVR 1998, CAD s/p CABG x 1 Vessel 1998, s/p Ascending Aortic Aneurysm Repair 2017, Type 1 Diabetes Mellitus, Diabetic Peripheral Neuropathy, Severe COPD (O2 dependant at 4L/min continuous), BPH, Chronic Venous Insufficiency, and Chronic Hypoxic Respiratory Failure who presents to [facility] ER today an acute COPD Exacerbation and an elevated lactate level. Patient describes progressive SOB/SRIVASTAVA and a productive cough over the past week. He actually started on oral antibiotics and oral Prednisone on Thursday11/02/20 but he has not seen much improvement in his symptoms over the past 3 days. His cough is productive of a dark colored sputum and he admits to occasional hemoptysis. Patient admits to occasional chills but denies any fevers. He has had some aches and pains as well. He admits to some leg edema chronically but over the past week the swelling has been worse. It appears that he weighed 130 pounds on 10/08/20 when he was discharged from the hospital, and his weight today is 139 pounds. Pro-BNP is WNL. Recommend the followin. Admit to Med-Surg with Telmetry. 2. IV Solumedrol 60 mg b.i.d.. 3. Supplemental O2 at 4 L/min, adjust as needed. 4. IV Rocephin 1 g daily. 5. IV Azithromycin 500 mg now followed by 250 mg daily. 6. Monitor O2 saturations continuously. 7. Continue inhalers as directed. 8. Nebulizers as needed. (2) Leg swelling: His edema has been worse over the past week. -- This may be a reflection of fluid retention related to oral prednisone use or possibly secondary to increased pulmonary pressures related to COPD exacerbation. -- Pro-BNP is normal. (3) CAD (coronary artery disease): -- s/p CABG x 1 Vessel 1998. -- No anginal symptoms. -- Continue Aspirin 81 mg daily. -- continue Atorvastatin 40 mg daily. (4) H/O mechanical aortic valve replacement: History of a bicuspid aortic valve with s/p mechanical AVR 1998. He also had an ascending aortic aneurysm repair 2017. -- Continue Warfarin for a goal INR of 2.0 to 3.0. -- His last Echocardiogram was done on 03/13/2020. -- Normal LV systolic function. (5) Diabetes type 1, uncontrolled: -- Continue Insulin and self BSG monitoring 4 times a day. (6) Chronic respiratory failure with hypoxia, on home oxygen therapy: -- As outlined above. History of Present Illness Chief Complaint: -- Increased SOB, Cough x 1 week. -- COPD Exacerbation. -- Leg edema. Primary Care Provider: Rajeev Alicea DO Mr. Mendez is a 75 year old male with a history of Bicuspid Aortic Valve with s/p Mechanical AVR 1998, CAD s/p CABG x 1 Vessel 1998, s/p Ascending Aortic Aneurysm Repair 2017, Type 1 Diabetes Mellitus, Diabetic Peripheral Neuropathy, Severe COPD (O2 dependant at 4L/min continuous), BPH, Chronic Venous Insufficiency, and Chronic Hypoxic Respiratory Failure who presents to [facility] ER today complaining of progressive SOB/SRIVASTAVA and a productive cough over the past week. He actually started on oral antibiotics and oral Prednisone on Thursday11/02/20 but he has not seen much improvement in his symptoms over the past 3 days. His cough is productive of a dark colored sputum and he admits to occasional hemoptysis. Patient admits to occasional chills but denies any fevers. He has had some aches and pains as well. He admits to some leg edema chronically but over the past week the swelling has been worse. He was hospitalized in September 2020 for a multilobar pneumonia, COPD exacerbation, and acute on chronic hypoxic respiratory failure. Treated with IV steroids, antibiotics, and nebulizer treatments and responded to these treatments. It appears that he weighed 130 pounds on 10/08/20 when he was discharged from the hospital, and his weight today is 139 pounds. Pro-BNP is WNL. His appetite is at baseline. Patient offers no other complaints. He denies any chest pain, heaviness, tightness, or pressure. He denies any orthopnea or PND. No palpitations, syncope, or near-syncope. He takes his medications in a compliant fashion. Allergies Allergy/AdvReac Type Severity Reaction Status Date / Time latex AdvReac Intermediate Rash Verified 11/05/20 14:37 propoxyphene AdvReac Intermediate panic Verified 11/05/20 14:37 [From Darvocet-N] attack Home Medications Medication Instructions Recorded Confirmed Type glucagon (human recombinant) 1 mg 1 mg SQ Q20M PRN #2 ea 02/02/20 11/05/20 Rx solution for injection aspirin 81 mg tablet,delayed 81 mg PO QAM 02/10/20 11/05/20 History release Dexcom G6 Tire Setter #1 ea NS 02/23/20 11/05/20 Rx Dexcom G6 Sensor #3 ea NS 02/23/20 11/05/20 Rx Dexcom G6 Transmitter #1 ea NS 02/23/20 11/05/20 Rx ciclopirox 0.77 % topical cream 1 applic TOPICAL BID #90 g 06/01/20 11/05/20 Rx sodium chloride 7 % for 4 ml INHALATION BID #240 ml 07/13/20 11/05/20 Rx nebulization nystatin 100,000 unit/gram topical 1 applic TOPICAL BID #30 g 07/26/20 11/05/20 Rx cream azelastine 137 mcg (0.1 %) nasal 1 spray INTRANASAL BID #3 btl 08/30/20 11/05/20 Rx spray aerosol Tresiba FlexTouch U-100 13 unit SQ HS 10/05/20 11/05/20 History albuterol sulfate [ProAir HFA] 2 puff INH Q6H PRN 10/05/20 11/05/20 History insulin lispro [Humalog KwikPen 0 unit SUBCUT TID 10/05/20 11/05/20 History Insulin] warfarin 4 mg PO UD 10/05/20 11/05/20 History warfarin 6 mg PO UD 10/05/20 11/05/20 History nystatin 5 ml PO QID 14 Days #280 ml 10/08/20 11/05/20 Rx prednisone 10 mg tablet 40 mg PO QAM tab 10/15/20 11/05/20 History albuterol sulfate 2.5 mg INHALATION Q4H PRN #360 ml 10/19/20 11/05/20 Rx blood sugar diagnostic #50 ea 10/19/20 11/05/20 Rx pregabalin 200 mg capsule 200 mg PO TID #90 cap 10/26/20 11/05/20 Rx amoxicillin-pot clavulanate 1 tab PO BID 11/05/20 11/05/20 History atorvastatin 20 mg PO QPM 11/05/20 11/05/20 History duloxetine [Cymbalta] 60 mg PO QAM 11/05/20 11/05/20 History dutasteride 0.5 mg PO QAM 11/05/20 11/05/20 History fluticasone furoate-vilanterol 1 inh INHALATION DAILY 11/05/20 11/05/20 History [Breo Ellipta] Past Med/Surg History Medical History (Updated 11/05/20 @ 17:27 by Christiano Pratt PA-C) Abnormal weight loss Aortic stenosis Ascending aortic aneurysm Bicuspid aortic valve CAD (coronary artery disease) Chronic respiratory failure with hypoxia Chronic respiratory failure with hypoxia, on home oxygen therapy COPD (chronic obstructive pulmonary disease) Diabetes type 1, uncontrolled Diabetic peripheral neuropathy associated with type 1 diabetes mellitus Dysesthesia Dyslipidemia Fungal skin infection Hypertension 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 Multifocal pneumonia Smoking Squamous cell carcinoma of right ear Venous insufficiency Surgical History (Updated 11/05/20 @ 17:27 by Christiano Pratt PA-C) H/O bilateral cataract extraction H/O mechanical aortic valve replacement History of hernia repair 2007 S/P ascending aortic aneurysm repair S/P AVR (aortic valve replacement) S/P CABG x 1 Family History Sister Breast cancer 3 sisters Colorectal cancer Brother COPD (chronic obstructive pulmonary disease) half brother Prostate cancer half brother Father Heart disease Myocardial infarction Daughter Diabetes Denies family history of Ovarian cancer Lung cancer Social History Smoking Status: Current every day smoker Tobacco Type: Pipe Age Started Using Tobacco: 20; Cigarettes Per Day: 2 cigars per day and pipe; Second Hand Exposure: No; Do You Dip or Chew Tobacco: No; Tobacco Cessation Education Requested by Patient: No Hx Alcohol Use: No Hx Substance Use: No Preferred Language: Stateless Communication Ability: Effective Visual Impairment: Limited Hearing Ability: Normal Assistant Press Operator Required: No Beliefs That Will Affect Care: None marital status: Current Living Situation: Spouse Current Living Situation Comment: spouse and daughter in [place] current occupational status: retired current occupation: [employer] How many Children do You have: 1 Other Information That Helps Us Care for You: No Feels Safe at Home: Yes Safety Concerns: Feels Safe At This Time Childhood Exposure to Second-Hand Smoke: No caffeine: Yes (coffee) Dental Care, Regularly: No Physical Activity Frequency: 3-4 Times per Week Seatbelt Use: always Sunscreen Use: No Assistive Devices: Oxygen - Continuous Review of Systems Review of Systems: All systems reviewed & are unremarkable except as noted in Subjective Physical Exam Physical Exam: GENERAL: Patient in no acute distress. HEENT: Head is atraumatic, normocephalic. EOM's intact. Facies symmetric. No perioral cyanosis. NECK: No JVD. JVP is not elevated. Carotid upstrokes are + 2 bilaterally. No bruits are noted. CHEST/LUNGS: Diminished breath sounds throughout with scattered wheezes. No crackles or rales. CVS: S1 and S2 are regular with mechanical aortic valve closure sounds and a grade 1/6 basal systolic murmur. No diastolic murmurs. No gallops or rubs. PMI is nondisplaced. No lifts, heaves, or thrills. No abdominal aortic or renal bruits. ABDOMINAL EXAM: Bowel sounds are present. No masses, organomegaly, or tenderness. EXTREMITIES: No clubbing or cyanosis. +2 bipedal edema, +1 leg edema. Intact radial pulses bilaterally. NEUROLOGIC EXAM: Patient is awake, alert, and oriented. Pleasant and cooperative. Answers questions appropriately. Speech is clear. Normal movement in all 4 extremities. Gait pattern was not assessed. Termite Exterminator Helper shows NSR. Results & Data Results & Data ([facility]) Vital Signs (Past 12 Hours) Vital Signs Temp Pulse Pulse Resp BP BP Pulse Ox 11/05/20 16:50 82 20 99 11/05/20 16:40 87 22 98 11/05/20 16:30 80 20 98 11/05/20 16:20 96 H 18 94 11/05/20 16:10 82 17 93 11/05/20 16:00 81 19 94 11/05/20 15:50 84 25 H 98 11/05/20 15:48 83 22 97 11/05/20 15:44 82 22 96 11/05/20 15:43 82 19 133/72 96 11/05/20 15:40 85 14 95 11/05/20 15:30 89 14 97 11/05/20 15:20 86 18 96 11/05/20 15:10 86 18 96 11/05/20 15:00 84 16 95 11/05/20 14:50 83 17 96 11/05/20 14:40 83 16 96 11/05/20 14:30 89 22 97 11/05/20 14:20 87 17 98 11/05/20 14:10 85 17 99 11/05/20 14:00 89 19 98 11/05/20 13:50 89 15 99 11/05/20 13:46 89 20 117/60 99 11/05/20 13:40 90 20 99 11/05/20 13:30 91 H 19 98 11/05/20 13:20 94 H 24 97 11/05/20 12:45 104 H 22 117/60 97 11/05/20 12:25 36.9 C 102 H 18 107/65 93 Laboratory Results Laboratory Results - last 24 hr 11/05/20 11/05/20 11/05/20 13:15 13:15 13:18 WBC 8.28 RBC 4.67 L Hgb 15.4 Hct 47.5 MCV 101.7 H MCH 33.0 MCHC 32.4 RDW Std Deviation 55.9 H RDW Coeff of [place] 14.9 H Plt Count 181 MPV 12.8 H Immature Gran % (Auto) 0.2 Neut % (Auto) 94.2 Lymph % (Auto) 2.9 [place] % (Auto) 2.2 Eos % (Auto) 0.5 Baso % (Auto) 0.0 Neut # (Auto) 7.80 H Lymph # (Auto) 0.24 L [place] # (Auto) 0.18 Eos # (Auto) 0.04 Baso # (Auto) 0.00 Immature Gran # (Auto) 0.02 PT INR APTT PTT Ratio Sodium Potassium Chloride Carbon Dioxide Anion Gap BUN Creatinine Est Cr Clr Drug Dosing Est GFR ( Amer) Est GFR (Non-Af Amer) BUN/Creatinine Ratio Glucose Lactate Calcium Magnesium Total Bilirubin AST ALT Alkaline Phosphatase Troponin I NT-Pro-B Natriuret Pep Total Protein Albumin Globulin Albumin/Globulin Ratio Lipase Procalcitonin TSH Urine Color Urine Appearance Urine pH Ur Specific [place] Urine Protein Urine Glucose (UA) Urine Ketones Urine Blood Urine Nitrite Urine Bilirubin Urine Urobilinogen Ur Leukocyte Esterase COVID-19 Eval Order CovFluRsv at [facility] SARS-CoV-2 (PCR) NEGATIVE Influenza Type A (PCR) Negative Influenza Type B (PCR) Negative RSV (RT-PCR) Negative 11/05/20 11/05/20 11/05/20 13:18 13:18 13:18 WBC RBC Hgb Hct MCV MCH MCHC RDW Std Deviation RDW Coeff of [place] Plt Count MPV Immature Gran % (Auto) Neut % (Auto) Lymph % (Auto) [place] % (Auto) Eos % (Auto) Baso % (Auto) Neut # (Auto) Lymph # (Auto) [place] # (Auto) Eos # (Auto) Baso # (Auto) Immature Gran # (Auto) PT 29.8 H INR 3.2 H APTT 34.8 H PTT Ratio 1.3 Sodium 141 Potassium 4.1 Chloride 102 Carbon Dioxide 35 H Anion Gap 4.0 BUN 19 H Creatinine 0.92 Est Cr Clr Drug Dosing 64.2 Est GFR ( Amer) 95.3 Est GFR (Non-Af Amer) 82.2 BUN/Creatinine Ratio 20.4 H Glucose 99 Lactate 2.9 H* Calcium 10.1 Magnesium 1.9 Total Bilirubin 0.6 AST 22 ALT 37 Alkaline Phosphatase 100 Troponin I 0.026 NT-Pro-B Natriuret Pep 401 Total Protein 7.3 Albumin 3.6 Globulin 3.7 Albumin/Globulin Ratio 1.0 Lipase Procalcitonin TSH 0.493 Urine Color Urine Appearance Urine pH Ur Specific [place] Urine Protein Urine Glucose (UA) Urine Ketones Urine Blood Urine Nitrite Urine Bilirubin Urine Urobilinogen Ur Leukocyte Esterase COVID-19 Eval Order SARS-CoV-2 (PCR) Influenza Type A (PCR) Influenza Type B (PCR) RSV (RT-PCR) 11/05/20 11/05/20 11/05/20 13:18 13:18 16:26 WBC RBC Hgb Hct MCV MCH MCHC RDW Std Deviation RDW Coeff of [place] Plt Count MPV Immature Gran % (Auto) Neut % (Auto) Lymph % (Auto) [place] % (Auto) Eos % (Auto) Baso % (Auto) Neut # (Auto) Lymph # (Auto) [place] # (Auto) Eos # (Auto) Baso # (Auto) Immature Gran # (Auto) PT INR APTT PTT Ratio Sodium Potassium Chloride Carbon Dioxide Anion Gap BUN Creatinine Est Cr Clr Drug Dosing Est GFR ( Amer) Est GFR (Non-Af Amer) BUN/Creatinine Ratio Glucose Lactate Calcium Magnesium Total Bilirubin AST ALT Alkaline Phosphatase Troponin I NT-Pro-B Natriuret Pep Total Protein Albumin Globulin Albumin/Globulin Ratio Lipase 199 Procalcitonin < 0.05 TSH Urine Color Yellow Urine Appearance Clear Urine pH 7.0 Ur Specific [place] 1.017 Urine Protein Negative Urine Glucose (UA) 2+ H Urine Ketones Negative Urine Blood Negative Urine Nitrite Negative Urine Bilirubin Negative Urine Urobilinogen Negative Ur Leukocyte Esterase Negative COVID-19 Eval Order SARS-CoV-2 (PCR) Influenza Type A (PCR) Influenza Type B (PCR) RSV (RT-PCR) Diagnostic Findings CXR 11/05/2020: There is no pneumothorax or pleural effusion. There are median sternotomy wires and a left atrial occluder device. Severe emphysema is noted. Cardiac size is normal. Mediastinal contours are normal. Bilateral lower lung opacities have improved since exam of October 05, 2020. Minimal bibasilar opacities favor atelectasis. IMPRESSION: 1. Interval improvement in bilateral lower lung opacities. Residual lower lung opacities favor atelectasis. 2. Severe emphysema. Medications Administered Medications glucagon (human recombinant) 1 mg solution for injection 1 mg SQ Q20M PRN #2 ea 02/02/20 [Rx Confirmed 11/05/20] aspirin 81 mg tablet,delayed release 81 mg PO QAM 02/10/20 [History Confirmed 11/05/20] Dexcom G6 Tire Setter #1 ea NS 02/23/20 [Rx Confirmed 11/05/20] Dexcom G6 Sensor #3 ea NS 02/23/20 [Rx Confirmed 11/05/20] Dexcom G6 Transmitter #1 ea NS 02/23/20 [Rx Confirmed 11/05/20] ciclopirox 0.77 % topical cream 1 applic TOPICAL BID #90 g 06/01/20 [Rx Confirmed 11/05/20] sodium chloride 7 % for nebulization 4 ml INHALATION BID #240 ml 07/13/20 [Rx Confirmed 11/05/20] nystatin 100,000 unit/gram topical cream 1 applic TOPICAL BID #30 g 07/26/20 [Rx Confirmed 11/05/20] azelastine 137 mcg (0.1 %) nasal spray aerosol 1 spray INTRANASAL BID #3 btl 08/30/20 [Rx Confirmed 11/05/20] Tresiba FlexTouch U-100 13 unit SQ HS 10/05/20 [History Confirmed 11/05/20] albuterol sulfate [ProAir HFA] 2 puff INH Q6H PRN 10/05/20 [History Confirmed 11/05/20] insulin lispro [Humalog KwikPen Insulin] 0 unit SUBCUT TID 10/05/20 [History Confirmed 11/05/20] warfarin 4 mg PO UD 10/05/20 [History Confirmed 11/05/20] warfarin 6 mg PO UD 10/05/20 [History Confirmed 11/05/20] nystatin 5 ml PO QID 14 Days #280 ml 10/08/20 [Rx Confirmed 11/05/20] prednisone 10 mg tablet 40 mg PO QAM tab 10/15/20 [History Confirmed 11/05/20] albuterol sulfate 2.5 mg INHALATION Q4H PRN #360 ml 10/19/20 [Rx Confirmed 11/05/20] blood sugar diagnostic #50 ea 10/19/20 [Rx Confirmed 11/05/20] pregabalin 200 mg capsule 200 mg PO TID #90 cap 10/26/20 [Rx Confirmed 11/05/20] amoxicillin-pot clavulanate 1 tab PO BID 11/05/20 [History Confirmed 11/05/20] atorvastatin 20 mg PO QPM 11/05/20 [History Confirmed 11/05/20] duloxetine [Cymbalta] 60 mg PO QAM 11/05/20 [History Confirmed 11/05/20] dutasteride 0.5 mg PO QAM 11/05/20 [History Confirmed 11/05/20] fluticasone furoate-vilanterol [Breo Ellipta] 1 inh INHALATION DAILY 11/05/20 [History Confirmed 11/05/20] Code Status & VTE Plan Code Status Conditional Code. VTE Prophylaxis Plan VTE Prophylaxis will be ordered: Yes Supervising Physician Co-Signing Physician Notes Discussed case with PAC, agree with his note above. Patient has a history of O2 dependent COPD, has noted worsening shortness of breath along with lower extremity edema and weight gain. Patient was felt to have a COPD exacerbation, lower extremity edema may be secondary to mild right heart failure versus side effect from high-dose prednisone dosing. Patient was started on IV steroids along with IV antibiotics. Continue to monitor lower extremity edema. Continue warfarin dosing for his mechanical AVR. Continue other medications as outlined above. PG Care Time/CCT Total # of Minutes Spent Total Time Spent with Patient: Total time spent is greater than 50% in coordination of care (as documented) at patient's floor/unit and/or counseling patient:40 Coding Level of Care Code 88795 Initial Inpt Care Lvl 3 Diagnoses COPD exacerbation J44.1 Leg swelling M79.89 CAD (coronary artery disease) I25.10 H/O mechanical aortic valve replacement Z95.2 Diabetes type 1, uncontrolled E10.65 Chronic respiratory failure with hypoxia, on home oxygen therapy J96.11; Z99.81 Time Spent (min) 65
[2020-11-05] MEDS ORDERED: POLYETHYLENE (MIRALAX) 17 GM PACK PO PRN (18:31)
[2020-11-05] MEDS ORDERED: MAGNESIUM HYDROXIDE SUSP 30 ML UDC PO PRN (18:31)
[2020-11-05] MEDS ORDERED: BLOOD GLUCOSE METER CONTINUOUS XX SCH (18:31)
[2020-11-05] MEDS ORDERED: ALBUTEROL HFA 8 GM INHALER INH PRN (18:31)
[2020-11-05] MEDS ORDERED: NON-FORMULARY MEDICATION (Blood-Glucose Transmitter [Dexcom G6 Transmitter] device) XX SCH (18:31)
[2020-11-05] MEDS ORDERED: NYSTATIN SUSP 500,000 U/5 ML UDC PO SCH (18:31)
[2020-11-05] MEDS ORDERED: NON-FORMULARY MEDICATION (Blood-Glucose Sensor [Dexcom G6 Sensor] device) TD SCH (18:31)
[2020-11-05] MEDS ORDERED: ZOLPIDEM TARTRATE 5 MG TAB PO PRN (18:31)
[2020-11-05] MEDS ORDERED: BLOOD SUGAR DIAGNOSTIC STRIP SCH (18:31)
[2020-11-05] MEDS ORDERED: WARFARIN SOD 6 MG TAB PO SCH (18:31)
[2020-11-05] MEDS ORDERED: ALUMINUM/MAGNESIUM SUSP 30 ML UDC PO PRN (18:31)
[2020-11-05] MEDS ORDERED: NITROGLYCERIN SL 0.4 MG/TAB TAB SL PRN (18:31)
[2020-11-05] MEDS ORDERED: ALBUTEROL 0.083% NEBU SOLN 3 ML VIAL INH PRN (18:31)
[2020-11-05] MEDS ORDERED: ACETAMINOPHEN 325 MG TAB PO PRN (18:31)
[2020-11-05] MEDS ORDERED: ONDANSETRON INJ 2 MG/ML 2 ML VIAL IV PRN (18:31)
[2020-11-05] MEDS ORDERED: AZITHROMYCIN 500 MG in DEXTROSE 5% 250 ML IV ONE (19:00)
[2020-11-05] MEDS ORDERED: PHARMACY GLYCEMIC MGMT CONSULT PRN (19:22)
[2020-11-05] MEDS: SODIUM CHLOR 7% 4 ML NEB INH SCH (19:31)
[2020-11-05] MEDS ORDERED: GLUCOSE 10 TABS/TUBE PO PRN (20:00)
[2020-11-05] MEDS ORDERED: INSULIN GLARGINE SOLOSTAR 100 UNITS/ML 3 ML PEN SC ONE (20:00)
[2020-11-05] MEDS ORDERED: GLUCOSE 40% GEL 15 GM TUBE PO PRN (20:00)
[2020-11-05] MEDS ORDERED: DEXTROSE 50% 50 ML SYRINGE IV PRN (20:00)
[2020-11-05] MEDS ORDERED: GLUCAGON FOR INJ 1 MG VIAL IM PRN (20:00)
[2020-11-05] MEDS ORDERED: CARBOHYDRATES FOR HYPOGLYCEMIA PO PRN (20:00)
[2020-11-05] MEDS ORDERED: cefTRIAXone SODIUM 1,000 MG in DEXTROSE 5% 50 ML IV SCH (20:00)
[2020-11-05] MEDS: methylPREDNISolone 60 MG in SYRINGE 0 ML IV SCH (20:25)
[2020-11-05] MEDS: INSULIN ASPART 100 UNITS/ML 3 ML PEN SC SCH (20:41)
[2020-11-05] MEDS: PREGABALIN 100 MG CAP PO SCH (20:45)
[2020-11-05] MEDS ORDERED: ATORVASTATIN 20 MG TAB PO SCH (21:00)
[2020-11-05] MEDS ORDERED: HEPARIN SOD 5,000 UNIT/0.5 ML VIAL SQ SCH (21:00)
[2020-11-05] MEDS ORDERED: NON-FORMULARY MEDICATION (Insulin Degludec [Tresiba Flextouch U-100] 100 unit/mL (3 mL) in SQ SCH (21:00)
[2020-11-05] MEDS ORDERED: methylPREDNISolone 125 MG/2 ML VIAL IV SCH (21:00)
[2020-11-05] MEDS ORDERED: NON-FORMULARY MEDICATION (Insulin Lispro [Humalog Kwikpen Insulin] 100 unit/mL insulin pen SQ SCH (21:00)
[2020-11-05] MEDS: NYSTATIN CR 15 GM TUBE EXT SCH (23:25)
[2020-11-06] MEDS: INSULIN ASPART 100 UNITS/ML 3 ML PEN SC SCH ×5 (00:08→17:52)
[2020-11-06] MEDS: [UNRECOGNIZED DRUG - REMARK] SCH ×3 (00:16→16:05)
[2020-11-06] MEDS: DUTASTERIDE: ORDER AWAITING ACTION SCH ×3 (00:16→16:05)
[2020-11-06] MEDS: AZELASTINE: ORDER AWAITING ACTION SCH ×3 (00:16→16:05)
[2020-11-06 06:33] LABS: Hematocrit (blood only) 40.3 % (42-52); Hemoglobin 13.2 g/dL (14.0-18.0); Immature Granulocytes # (auto) 0.02 K/uL (0.00-0.02); Immature Granulocytes % (auto) 0.3 %; Lymphocytes # (auto) 0.51 K/uL (1.2-3.4); Lymphocytes % (auto) 7.3 %; Mean Corpuscular Hemoglobin 32.6 pg (25-34); Mean Corpuscular Hgb Conc 32.8 g/dL (32-36); Mean Corpuscular Volume 99.5 fL (80-100); Monocytes # (auto) 0.58 K/uL (0.11-0.59); Monocytes % (auto) 8.3 %; Neutrophils # (auto) 5.88 K/uL (1.4-6.5); Neutrophils % (auto) 84.1 %; Platelet Count 164 K/uL (130-400); RDW Coefficient of Variation 14.5 % (11.5-14.5); RDW Standard Deviation 52.8 fL (36.4-46.3); Red Blood Count 4.05 M/uL (4.7-6.1); White Blood Count 6.99 K/uL (4.8-10.8)
[2020-11-06 06:54] LABS: Prothrombin Time 19.3 Seconds (9.0-12.0)
[2020-11-06] MEDS: SODIUM CHLOR 7% 4 ML NEB INH SCH (07:06)
[2020-11-06 07:12] LABS: BUN Creatinine Ratio 24.4 (10-20); Calcium 8.4 mg/dl (8.5-10.1); Est GFR (African American) 108.5; Est GFR (Non-African American) 93.6
[2020-11-06 08:03] LABS: Estimated Average Glucose 206 mg/dl; Hemoglobin A1C 8.8 % (4.5-5.6)
[2020-11-06] MEDS ORDERED: AZITHROMYCIN 250 MG in DEXTROSE 5% 250 ML IV SCH (09:00)
[2020-11-06] MEDS ORDERED: INSULIN GLARGINE SOLOSTAR 100 UNITS/ML 3 ML PEN SC SCH ×2 (09:00→21:00)
[2020-11-06] MEDS ORDERED: ASPIRIN 81 MG ECTAB PO SCH (09:00)
[2020-11-06] MEDS ORDERED: FLUTICASONE/VILANTEROL 200/25MCG 14 PUFFS/INHALER INH SCH (09:00)
[2020-11-06] MEDS ORDERED: DULoxetine HCL 60 MG CAP PO SCH (09:00)
[2020-11-06] MEDS: methylPREDNISolone 60 MG in SYRINGE 0 ML IV SCH ×2 (09:11→17:51)
[2020-11-06] MEDS: PREGABALIN 100 MG CAP PO SCH ×2 (09:11→14:06)
[2020-11-06] MEDS: NYSTATIN CR 15 GM TUBE EXT SCH (09:24)
--- NOTE | 2020-11-06 10:47 | Pharmacy Report ---
Pharmacy Glycemic Short Note 2 - Date of Service November 06, 2020 - Glycemic Short BSG Results (Last 24 hours): 11/05/20 11/05/20 11/05/20 13:18 19:41 20:23 Glucose 99 POC Glucose 345 H* 350 H* 11/06/20 11/06/20 11/06/20 00:05 00:06 03:48 Glucose POC Glucose 304 H* 268 H 335 H* 11/06/20 11/06/20 11/06/20 03:49 05:49 07:41 Glucose 207 H POC Glucose 254 H 187 H OUTPATIENT ANTIDIABETIC REGIMEN: * Tresiba 13 units HS, Humalog SSI * A1c 8.8% ASSESSMENT: * 75 year old admitted with COPD exacerbation. Type 1 diabetic - most recent A1c 8.8%. Started on steroids on admission, anticipate steroid induced hyperglycemia. Pharmacy consulted to help with glycemic management * Received 17 units of basal insulin last evening (stressed home dose of 13 units d/t steroids). Steroids continuing this AM, will order additional Lantus for this AM as I anticipate more coverage is needed. Patient recently admitted 10/06 and had also been on steroids. Appears BSGs very labile, especially on steroids. Will monitor closely PLAN FOR INPATIENT GLYCEMIC CONTROL: * Hold outpatient oral diabetes medications * Basal insulin * Lantus 20 units this AM * Lantus 15-20 units SQ BID while on solumedrol * Bolus insulin * NovoLog per scale ACHS or Q6hrs while NPO * Goal Range: Low 110 mg/dL - High 140 mg/dL * Correction Factor: 30 mg/dL/unit * Nutritional / Prandial insulin per carb ratio of 1 unit per 9 grams CHO consumed PLAN FOR DISCHARGE: * tbd
--- NOTE | 2020-11-06 11:36 | Hospitalist Progress Note ---
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 Acute on chronic hypoxic respiratory failure Most likely secondary to COPD exacerbation While there is 1+ pitting edema in the lower extremities, no other signs of volume overload on exam and BNP was within normal limits; low suspicion for volume overload component Last echocardiogram was 02/2020, demonstrated normal left ventricular systolic function Low suspicion for recurrent pneumonia at this time COPD Exacerbation Currently at baseline 4 L of O2, still some intermittent wheezes on exam but compared to yesterday, patient reporting respiratory effort much easier Continue IV Solu-Medrol Discontinue IV antibiotics Begin azithromycin 250mg PO x 5 additional days (got loading 500mg yesterday IV) Continue home Breo, albuterol as needed Add Incruse (antimuscarinic) Promote mucociliary clearance: add Mucinex, flutter valve, nebulized hypertonic saline DuoNebs as needed Follows with pulmonary as outpatient, agree that patient would be a good candidate for pulmonary rehabilitation program Blood sugar control Leg swelling Patient complaining that this is been worse over the past week On exam, lower extremities do appear equally edematous, 1+ --low concern for venous thrombosis at this time Agree that this most likely represents a combination of venous insufficiency, mild amounts of fluid retention in setting of recent prednisone use, and decreased venous return secondary to COPD exacerbation As above, no other signs of volume overload; BNP was within normal limits Continue to monitor Chronic medical conditions Coronary artery disease status post CABG X1: Asymptomatic. Continue aspirin, statin. Aortic valve replacement in 1998: Continue warfarin, INR goal of 2-3 Type 1 diabetes: Lantus, SSI, AC/at bedtime blood sugar checks while here Code: Conditionalokay with chest compressions, DNI Prophylactics: Warfarin as above Disposition: MedSurg with telemetry Diet: Heart healthy, carb consistent (2) S/P AVR (aortic valve replacement): (3) COPD exacerbation: (4) Chronic respiratory failure with hypoxia: (5) Dyspnea: (6) Hypertension: (7) Aortic stenosis: (8) CAD (coronary artery disease): (9) H/O mechanical aortic valve replacement: (10) S/P CABG x 1: (11) S/P ascending aortic aneurysm repair: (12) director long term care current use of anticoagulants with INR goal of 2.0-3.0: (13) Hypoglycemia unawareness in type 1 diabetes mellitus: (14) Chronic respiratory failure: (15) Chronic respiratory failure with hypoxia, on home oxygen therapy: (16) Colon cancer screening declined: Admission and Anticipated Discharge Date Admission Date: November 05, 2020 Subjective Feeling a lot better this AM compared to when he came in yesterday. Says still coughing up a lot of junk, but breathing easier. Denies any chills or night sweats through the evening. Denies chest pain - although does note that his legs have continued to appear a bit more swollen compared to in the past. Good appetite. No other concerns Review of Systems Review of Systems: as per HPI Physical Exam Physical Exam: General: 75 year old gentleman who is is sitting back in his hospital bed, relaxed, upon my arrival. Fully alert and oriented. Body habitus: Thin, barrel chested HEENT: NCAT. Eyes - Sclera are white, anicteric, and without injection. PERRL. EOMs display full ROM bilaterally. Mouth - MMM with no tonsillar edema or exudates. No appreciable JVD. Pulmonary: Mildly increased respiratory effort with symmetric expansion of the chest. Lungs do demonstrate intermittent wheezes, more dominant on the left compared to the right. No use of accessory muscles Abdominal: Normoactive bowel sounds. Abdomen was soft, nondistended, and non- tender to palpation. Extremities: Upper and lower extremities are warm and well perfused. There is 1+ pitting edema in the lower extremities bilaterally. Psych: Well-developed, well-nourished, appropriately dressed for occasion. Behavior is cooperative and appropriate. Affect is WNL. Insight is appropriate. Results & Data Results & Data ([facility]) Vital Signs (Past 12 Hours) Vital Signs Temp Pulse Pulse Resp BP Pulse Ox 11/06/20 08:06 36.9 C 94 H 20 143/77 H 91 11/06/20 07:50 84 11/06/20 07:06 93 H 18 97 11/06/20 04:23 36.9 C 84 18 116/69 93 05/10/21 23:34 88 Resident Activity Tracking Resident Involvement: Resident Care Provided Care Provided: Adult Hospital Medicine (1) COPD (chronic obstructive pulmonary disease) COPD type: COPD with acute exacerbation Qualified Code(s): J44.1 - Chronic obstructive pulmonary disease with (acute) exacerbation
[2020-11-06] MEDS ORDERED: INSULIN GLARGINE SOLOSTAR 100 UNITS/ML 3 ML PEN SC ONE (12:30)
[2020-11-06] MEDS ORDERED: INSULIN HUMAN REGULAR PER UNIT 6 UNITS in SYRINGE 5.94 ML IV ONE (12:30)
[2020-11-06] MEDS ORDERED: UMECLIDINIUM BROMIDE 62.5MCG/BLISTER 7 PUFFS/INHALER INH SCH (15:30)
[2020-11-06] MEDS ORDERED: WARFARIN SOD 4 MG TAB PO SCH (16:00)
[2020-11-06] MEDS ORDERED: Nursing to Pharmacy Communication SCH (16:45)
--- NOTE | 2020-11-06 17:43 | Discharge Summary ---
Date of Service November 06, 2020 Admission HPI Per Admitting Provider Mr. Mendez is a 75 year old male with a history of Bicuspid Aortic Valve with s/p Mechanical AVR 1998, CAD s/p CABG x 1 Vessel 1998, s/p Ascending Aortic Aneurysm Repair 2017, Type 1 Diabetes Mellitus, Diabetic Peripheral Neuropathy, Severe COPD (O2 dependant at 4L/min continuous), BPH, Chronic Venous Insufficiency, and Chronic Hypoxic Respiratory Failure who presents to [facility] ER today complaining of progressive SOB/SRIVASTAVA and a productive cough over the past week. He actually started on oral antibiotics and oral Prednisone on Thursday11/02/20 but he has not seen much improvement in his symptoms over the past 3 days. His cough is productive of a dark colored sputum and he admits to occasional hemoptysis. Patient admits to occasional chills but denies any fevers. He has had some aches and pains as well. He admits to some leg edema chronically but over the past week the swelling has been worse. He was hospitalized in September 2020 for a multilobar pneumonia, COPD exacerbation, and acute on chronic hypoxic respiratory failure. Treated with IV steroids, antibiotics, and nebulizer treatments and responded to these treatments. It appears that he weighed 130 pounds on 10/08/20 when he was discharged from the hospital, and his weight today is 139 pounds. Pro-BNP is WNL. His appetite is at baseline. Patient offers no other complaints. He denies any chest pain, heaviness, tightness, or pressure. He denies any orthopnea or PND. No palpitations, syncope, or near-syncope. He takes his medications in a compliant fashion. Principal Diagnosis COPD exacerbation Discharge Exam In general he is awake and alert pleasant no distress. HEENT normocephalic atraumatic mucous membranes moist. Breathing unlabored his lungs are clear but very diminished air entry throughout no accessory muscle use no rales rhonchi or wheeze with good effort. Skin shows no rashes no pallor or icterus. Discharge Data Allergies Allergy/AdvReac Type Severity Reaction Status Date / Time latex AdvReac Intermediate Rash Verified 11/05/20 14:37 propoxyphene AdvReac Intermediate panic Verified 11/05/20 14:37 [From Jaclyn] attack Consultations 11/05/20 15:53 ED Decision to Admit Stat Hospital Course (1) COPD (chronic obstructive pulmonary disease): Had symptoms consistent with a COPD exacerbation, was started on prednisone and Augmentincontinued to worsenadmitted on IV steroids, Zithromax, Rocephin, after further review no infiltratethe Rocephin stopped. Patient felt much better was back to his baseline chronic hypoxic respiratory failure requiring 4 L of oxygenand very much wanted to go home. Given his clinical improvement that lasted throughout the entirety of the day, we felt it reasonable to let him go home. Finish out p.o. prednisone taper starting with 60 mg. Finish out course of azithromycin for atypical coverage/pulmonary anti- inflammatory effect. Reintroduce long-acting anticholinergic to his inhaler regimen. Called his daughter at his request and updated extensively. Stable for home Total Time Total Time Spent Total Time Spent (In Minutes): Greater than 30 Discharge Plan Discharge Items Patient Disposition: Home - Self-Care Reason For Visit: COPD EXACERBATION Discharge Diagnosis: COPD exacerbation Activity: Resume your previous activity Non-emergency contact: Primary Care Provider and Hose Finisher Call non-emergency contact if: you have any medication questions and your symptoms worsen Follow-up/Referrals: Rajeev Alicea DO [Primary Care Provider] - Diet: Regular Addtl Attending Provider Instructions: COPD exacerbation: -Fortunately this appeared to get better very quickly -With the severity of your lung disease, it is most likely that you just needed additional potency from steroids that could not be achieved with oral prednisone -Now that you are starting to do better, it appears quite safe to switch her back over to oral prednisone and taper slowly--we will use 60 mg for 2 days, followed by 50 mg for 2 days, followed by 40 mg for 2 days, followed by 30 mg for 2 days, followed by 20 mg for 2 days, followed by 10 mg for 2 daysthen you can stop -While you are on the steroids, it would be reasonable to use the NPH insulin that you were given at the last discharge after your pneumonia, but given that it is a taper that will be over in a little over a week, it is also reasonable to keep an eye on your sugarknowing that it will be higher than usualbut as long as it is not in the "drastically high" range (such as above 400) it is highly unlikely that acute problems like hyperglycemic dehydration will occur -In addition to the steroids, we will finish out antibiotics with azithromycin tomorrow, , and Thursday. While we do not see an actual pneumonia, there is good evidence that people with a COPD exacerbation get better faster with antibiotic treatmentspecifically azithromycin or doxycycline -Finally, while your Breo has a long-acting beta agonist, and an inhaled steroid, it does not have any anticholinergic and itwe have restarted your Incruse to cover that portion of maintenance inhalers, obviously take your Breo every day, and your Incruse every day. Use your albuterol up to every 4 hours as needed for shortness of breath or wheezing While your lung disease appears to be quite severe, given that your heart and blood vessels are not nearly as bad, it would still be quite reasonable to give trial to pulmonary rehab. When you look at it in your situation, the goal would be that while we may not really be able to improve lung function much, if we can get the rest of your cardiopulmonary fitness better (by improving your cardiovascular oxygen carrying capacity) we may be able to improve what you are functionally able to do Pending Studies at Discharge: No Stand-Alone Forms: My [facility], Smoking Cessation Medications and DC Order Prescriptions: New Incruse Ellipta 62.5 mcg/actuation Blister With Device 1 puff inhalation DAILY Qty: 30 RF: 0 azithromycin [Zithromax] 250 mg tablet 250 mg PO DAILY 3 Days Qty: 3 RF: 0 prednisone 10 mg tablet 10 mg PO UD Qty: 42 RF: 0 Continued Glucagon Emergency Kit (human) 1 mg recon soln 1 mg SQ Q20M PRN (Reason: hypoglycemia) Qty: 2 RF: 2 ciclopirox 0.77 % cream 1 applic topical BID Qty: 90 RF: 0 nystatin 100,000 unit/gram cream 1 applic topical BID Qty: 30 RF: 5 azelastine 137 mcg (0.1 %) aerosol,spray 1 spray intranasal BID Qty: 3 RF: 1 pregabalin [Lyrica] 200 mg capsule 200 mg PO TID Qty: 90 RF: 1 aspirin [Adult Low Dose Aspirin] 81 mg tablet,delayed release (DR/EC) 81 mg PO QAM RF: 0 (DME) Dexcom G6 Hand Flatwork Finisher Misc See Rx Instructions .MEDSUPPLY Qty: 1 RF: 0 (DME) Dexcom G6 Sensor Device See Rx Instructions .MEDSUPPLY Qty: 3 RF: 11 (DME) Dexcom G6 Transmitter Device See Rx Instructions .MEDSUPPLY Qty: 1 RF: 3 sodium chloride 7 % solution for nebulization 4 ml inhalation BID Qty: 240 RF: 5 albuterol sulfate 2.5 mg /3 mL (0.083 %) solution for nebulization 2.5 mg inhalation Q4H PRN (Reason: shortness of breath or wheezing) Qty: 360 RF: 5 (DME) blood sugar diagnostic Strip See Rx Instructions .ROUTE .MEDSUPPLY Qty: 50 RF: 1 albuterol sulfate [ProAir HFA] 90 mcg/actuation HFA aerosol inhaler 2 puff INH Q6H PRN (Reason: shortness of breath or wheezing) RF: 0 warfarin 4 mg tablet 4 mg PO UD RF: 0 warfarin 6 mg Tablet 6 mg PO UD RF: 0 Tresiba FlexTouch U-100 100 unit/mL (3 mL) insulin pen 13 unit SQ HS RF: 0 insulin lispro [Humalog KwikPen Insulin] 100 unit/mL insulin pen 0 unit subcut TID RF: 0 nystatin 100,000 unit/mL suspension 5 ml PO QID 14 Days Qty: 280 RF: 0 Breo Ellipta 200-25 mcg/dose Blister With Device 1 inh INHALATION DAILY RF: 0 atorvastatin 20 mg tablet 20 mg PO QPM RF: 0 dutasteride 0.5 mg capsule 0.5 mg PO QAM RF: 0 duloxetine [Cymbalta] 60 mg capsule,delayed release(DR/EC) 60 mg PO QAM RF: 0 Discontinued prednisone 10 mg tablet 40 mg PO QAM RF: 0 amoxicillin-pot clavulanate 875-125 mg Tablet 1 tab PO BID RF: 0 Discharge Orders: Discharge Order (Routine); Ordered 11/06/20 Ordered By: Javier Kilpatrick/Other Patient Handouts: High Blood Sugar (Hyperglycemia), Hypoglycemia (Low Blood Sugar), Managing Type 1 Diabetes, Managing Diabetes: The A1C Test Admission Data Admit Date/Time: 11/05/20 17:20 Attending Provider: Javier Donovan Admit Provider: Christiano Pratt Primary Care Provider: Rajeev Alicea Other Providers: Calixto Ang Other Interventions: Discharge Summary Assessment (RN) Last Done: 11/06/20 16:33 Coding Level of Care Code 78708 OBS Care - Discharge Diagnoses COPD (chronic obstructive pulmonary disease) J44.1 COPD type: COPD with acute exacerbation
[2020-11-06] MEDS ORDERED: guaiFENesin 600 MG TABCR PO SCH (21:00)
--- NOTE | 2020-11-06 23:08 | Electrocardiogram Report ---
Test Reason : Blood Pressure : / mmHG Vent. Rate : 093 BPM Atrial Rate : 093 BPM P-R Int : 130 ms QRS Dur : 086 ms QT Int : 348 ms P-R-T Axes : 075 092 066 degrees QTc Int : 432 ms Sinus rhythm with Premature ventricular complexes Rightward axis Poor R wave progression, consider anterior NE vs. lead placement vs. LVH Abnormal ECG When compared with ECG of 05-OCT-2020 13:43, Premature ventricular complexes are now Present Confirmed by Zak Green ([id number]) on 11/06/2020 11:08:16 PM Referred By: REFERRED SELF Confirmed By:Zak Green
[2020-11-07] MEDS ORDERED: INSULIN ASPART 100 UNITS/ML 3 ML PEN SC SCH
[2020-11-07] MEDS ORDERED: AZITHROMYCIN 250 MG TAB PO SCH (09:00)
--- NOTE | 2020-11-14 11:55 | Coding Query ---
CODING QUERY To promote full compliance with coding requirements relating to patient care, provider participation is requested in all cases of bow stapler uncertainty. Please assist us with the question(s) below: Coding Question(s): "Acute on Chronic Hypoxic Respiratory Failure" is documented on progress note but not on Discharge. Please clarify below: (x ) Patient with Acute on Chronic Respiratory Failure ( ) Patient with Chronic Respiratory Failure only ( ) Other Please Explain: Thank you Nehemias Hurtado Principal Diagnosis: "that condition established after study, to be chiefly responsible for occasioning the admission of the patient to the hospital for care." Co-Existing Principal Diagnosis: "when two or more diagnoses equally meet the criteria for principal diagnosis as determined by the circumstances of admission, diagnostic work up, and/or therapy provided, and the Alphabetic Index, Tabular List, or another coding guideline does not provide sequencing direction, any one of the diagnoses may be sequenced first." "When the physician has documented what appears to be a current diagnosis in the body of the record, but has not included the diagnosis in the final diagnostic statement, the physician should be asked whether the diagnosis should be added." (Source [facility] 2 QTR90. p3-4) BRYANT
--- NOTE | 2020-11-14 11:56 | Coding Query ---
CODING QUERY To promote full compliance with coding requirements relating to patient care, provider participation is requested in all cases of patternmaker grader uncertainty. Please assist us with the question(s) below: Coding Question(s): Cachexia is documented on Discharge but nowhere else in the account. Please clarify below: x( ) Patient with Cachexia ( ) Cachexia Ruled Out ( ) Other Please clarify Thank you Nehemias Hurtado Principal Diagnosis: "that condition established after study, to be chiefly responsible for occasioning the admission of the patient to the hospital for care." Co-Existing Principal Diagnosis: "when two or more diagnoses equally meet the criteria for principal diagnosis as determined by the circumstances of admission, diagnostic work up, and/or therapy provided, and the Alphabetic Index, Tabular List, or another coding guideline does not provide sequencing direction, any one of the diagnoses may be sequenced first." "When the physician has documented what appears to be a current diagnosis in the body of the record, but has not included the diagnosis in the final diagnostic statement, the physician should be asked whether the diagnosis should be added." (Source [facility]oding [facility] 2 QTR90. p3-4) BRAYNT
== END 2020-11-06 18:05 | disposition home or self-care (01) | DRG 190 ==
LOC: ED 12:23 → 2N 17:20 → SUATTDRO 17:20 → INTOOBSV 17:20 → 2N 17:53

== ENCOUNTER 2020-12-30 09:36 | Inpatient (IN) ==
[2020-12-30] MEDS ORDERED: CEFEPIME 2,000 MG/20 ML VIAL IV STA (10:11)
--- NOTE | 2020-12-30 10:11 | Emergency Department Note ---
Impression & Plan Cellulitis of left leg, Leukocytosis, Acute hypotension, Abnormal ECG ED Provider Note INFORMANT: Patient ED PROVIDER(S): Say Trujillo MD CHIEF COMPLAINT: Left leg cellulitis PLAN: Disposition: Admitted Condition: Good Outpatient prescription management: none Referral: None MEDICAL DECISION MAKING: Patient presented with complaints of left leg cellulitis. His blood pressure was mildly low. This resolved. He was treated with IV cefepime and IV daptomycin. He had a mild leukocytosis on CBC. The patient is immunosuppressed with high-dose prednisone. His chemistry panel was unremarkable. Cultures were obtained. His lactate was normal. The patient will need further management in the hospital. Patient and family were in agreement. Consultation was made with the [facility]. The patient was evaluated and admitted for further management. Triage Nursing notes reviewed and agree them. Vital Signs: reviewed and remarkable for mildly low BP initially. Differential diagnosis: Cellulitis, abscess, MRSA infection, DVT, necrotizing fasciitis, dermatitis, drug eruption, allergic reaction, as well as other pathologies. Diagnostics interpreted by me: ECG: Twelve-lead ECG reveals normal sinus rhythm at 84 bpm. There is anterior T wave abnormality present. No ST elevation. No PACs or PVCs. Normal axis. Cardiac Monitoring: Cardiac monitoring ordered by me: The patient was placed on continuous cardiac monitoring and observed. It revealed a normal sinus rhythm at 75 beats per minute without ectopy or evidence of dysrhythmia. Imaging studies: Deferred HPI: The patient is a 75 year old male who presents to the Emergency Room with complaints of left leg infection. This started last night and is worsening. The patient also notes the following associated symptoms, swelling and drainage, chills, WHITTAKER. The patient has found no relieving factors. Current pain is rated as 8/10. Pt also notes a skin fungal infection on his back that he was treating with terbinafine. Pt denies LOC, fevers, diaphoresis, visual changes, neck pain, chest pain, breathing difficulties, nausea, vomiting, abdominal pain, back pain, melena, hematochezia, urinary symptoms, numbness, weakness, lymphadenopathy, rash, or other complaints. ROS: See above HPI for pertinent positives & negatives. A total of 10 systems reviewed and were otherwise negative. PAST MEDICAL HISTORY:See Below , DM, copd PAST SURGICAL HISTORY:See Below, FAMILY HISTORY:See Below SOCIAL HISTORY:See Below, smoker HOME MEDICATIONS:See Below ALLERGIES:See Below VITALS:See Below PHYSICAL EXAMINATION: GENERAL: Awake, alert, uncomfortable-appearing, in no distress HENT: Normocephalic, atraumatic. Oropharynx unremarkable. EYES: Normal conjunctiva. Sclera non-icteric. NECK: Inspection normal. Non-tender. Supple. No nuchal rigidity. FROM. No masses. RESPIRATORY: Clear to auscultation. No wheezes. No rales. Normal respiratory effort. CARDIAC: Normal rate. Normal rhythm. No murmurs. No rubs. Extremities warm and well perfused. Pulses equal. No JVD. GI: Soft, non-distended. No tenderness to palpation. No rebound or guarding. No masses. RECTAL: Deferred. MUSCULOSKELETAL: Atraumatic. Chest examination reveals no tenderness. The back is symmetrical on inspection without obvious abnormality. There is no CVA tenderness to palpation. No joint edema. LOWER EXTREMITIES: Left leg is swollen distally, 2+edema, erythema and warmth. NEURO: Normal sensorium. No sensory or motor deficits noted. SKIN: No rash or jaundice noted. Say Trujillo MD Past Med/Surg History Medical History Abnormal weight loss Aortic stenosis Ascending aortic aneurysm Bicuspid aortic valve CAD (coronary artery disease) Chronic respiratory failure with hypoxia Chronic respiratory failure with hypoxia, on home oxygen therapy COPD (chronic obstructive pulmonary disease) Diabetes type 1, uncontrolled Diabetic peripheral neuropathy associated with type 1 diabetes mellitus Dysesthesia Dyslipidemia Fungal skin infection Hypertension 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 Multifocal pneumonia Smoking Squamous cell carcinoma of right ear Venous insufficiency Surgical History H/O bilateral cataract extraction H/O mechanical aortic valve replacement History of hernia repair 2007 S/P ascending aortic aneurysm repair S/P AVR (aortic valve replacement) S/P CABG x 1 Family History Sister Breast cancer 3 sisters Colorectal cancer Brother COPD (chronic obstructive pulmonary disease) half brother Prostate cancer half brother Father Heart disease Myocardial infarction Daughter Diabetes Denies family history of Ovarian cancer Lung cancer Social History Smoking Status: Current every day smoker Tobacco Type: Cigarettes Age Started Using Tobacco: 20; Cigarettes Per Day: 2 cigars per day and pipe; Second Hand Exposure: Yes; Hx Alcohol Use: No Hx Substance Use: No Preferred Language: Mohawk Communication Ability: Effective Visual Impairment: Limited Hearing Ability: Normal 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 Beliefs That Will Affect Care: None marital status: Current Living Situation: Spouse and Family Current Living Situation Comment: spouse and daughter in [place] current occupational status: retired current occupation: [employer] How many Children do You have: 1 Feels Safe at Home: Yes Childhood Exposure to Second-Hand Smoke: No caffeine: Yes (coffee) Dental Care, Regularly: No Physical Activity Frequency: 3-4 Times per Week Seatbelt Use: always Sunscreen Use: No Assistive Devices: Oxygen - Continuous Allergies Allergies Allergy/AdvReac Type Severity Reaction Status Date / Time latex AdvReac Intermediate Rash Verified 12/30/20 12:00 propoxyphene AdvReac Intermediate panic Verified 12/30/20 12:00 [From Jaclyn] attack Home Meds Home Medications Medication Instructions Recorded Confirmed aspirin 81 mg tablet,delayed 81 mg PO QAM 02/10/20 12/30/20 release Tresiba FlexTouch U-100 14 unit SQ HS 10/05/20 12/30/20 albuterol sulfate [ProAir HFA] 2 puff INH Q6H PRN 10/05/20 12/30/20 warfarin 4 mg PO UD 10/05/20 12/30/20 warfarin 6 mg PO UD 10/05/20 12/30/20 atorvastatin 20 mg PO QDD 11/05/20 12/30/20 duloxetine [Cymbalta] 60 mg PO QAM 11/05/20 12/30/20 dutasteride 0.5 mg PO QAM 11/05/20 12/30/20 insulin lispro 100 unit/mL See Rx Instructions SUBCUT TID 11/09/20 12/30/20 subcutaneous pen azelastine 1 spray INTRANASAL BIDM 12/30/20 12/30/20 glucagon [Glucagon Emergency Kit 1 mg SUBCUT Q20M PRN 12/30/20 12/30/20 (human)] nystatin 5 ml PO QID 12/30/20 12/30/20 prednisone 50 mg PO QAM 12/30/20 12/30/20 terbinafine HCl [Lamisil] 1 applic TOPICAL BID 12/30/20 12/30/20 topiramate [Topamax] 100 mg PO BID 12/30/20 12/30/20 Previous Rx's Medication Instructions Recorded Dexcom G6 Wire Inserter #1 ea NS 02/23/20 Dexcom G6 Sensor #3 ea NS 02/23/20 Dexcom G6 Transmitter #1 ea NS 02/23/20 sodium chloride 7 % for 4 ml INHALATION BID #240 ml 07/13/20 nebulization pregabalin 200 mg capsule 200 mg PO TID #90 cap 10/26/20 Oxygen Home #1 ea 11/13/20 blood sugar diagnostic #100 ea 11/14/20 albuterol sulfate 2.5 mg INHALATION Q4H PRN #720 ml 11/16/20 miscellaneous medical supply See Rx Instructions .ROUTE 11/16/20 .COMPLEX #1 ea Vibration Vest See Rx Instructions .ROUTE 11/21/20 .COMPLEX #1 ea budesonide 160 mcg-glycopyr 9 2 inh INHALATION BID #10.7 g 11/30/20 mcg-formot 4.8 mcg/actuation HFA inhaler clonazepam 0.5 mg tablet 0.5 mg PO TID #90 tab 12/04/20 azithromycin 250 mg tablet 250 mg PO .q M,W, and F 30 Days 12/24/20 #12 tab Results & Data (ED) Vital Signs Vital Signs - 24 hr 12/30/20 09:46 12/30/20 10:31 12/30/20 10:34 Temperature 36.8 C Temperature Source Temporal Artery Scan Pulse Rate 97 H 84 84 Pulse Rate [Apical] Pulse Rate from SpO2 Sensor 87 Respiratory Rate 22 20 20 Respiratory Effort / Characteristics Respiratory Depth Respiratory Pattern Blood Pressure 92/54 L 130/63 Blood Pressure [Right Arm] Blood Pressure Mean 66 85 Blood Pressure Mean [Right Arm] Blood Pressure Position Sitting Pulse Oximetry 99 98 100 Oxygen Delivery Method Nasal Cannula Nasal Cannula Nasal Cannula Oxygen Flow Rate 4 4 3 Sepsis Recent Fever Within 48 Hours No Sepsis New/Unexplained Change in Mental Status N/A Sepsis Action Taken by Nursing No Action Required 12/30/20 10:35 12/30/20 10:36 12/30/20 11:00 Temperature Temperature Source Pulse Rate 84 86 Pulse Rate [Apical] 84 Pulse Rate from SpO2 Sensor 93 H 86 Respiratory Rate 20 19 20 Respiratory Effort / Characteristics Non-Labored Spontaneous Respiratory Depth Normal Respiratory Pattern Regular Blood Pressure 112/51 L Blood Pressure [Right Arm] 130/63 Blood Pressure Mean 71 Blood Pressure Mean [Right Arm] 85 Blood Pressure Position Pulse Oximetry 100 98 100 Oxygen Delivery Method Nasal Cannula Nasal Cannula Nasal Cannula Oxygen Flow Rate 4 4 4 Sepsis Recent Fever Within 48 Hours Sepsis New/Unexplained Change in Mental Status Sepsis Action Taken by Nursing 12/30/20 11:30 12/30/20 11:54 12/30/20 12:00 Temperature Temperature Source Pulse Rate 90 99 H 89 Pulse Rate [Apical] Pulse Rate from SpO2 Sensor 90 109 H 89 Respiratory Rate 19 22 18 Respiratory Effort / Characteristics Respiratory Depth Respiratory Pattern Blood Pressure 101/48 L 134/73 115/57 L Blood Pressure [Right Arm] Blood Pressure Mean 65 93 76 Blood Pressure Mean [Right Arm] Blood Pressure Position Pulse Oximetry 100 97 100 Oxygen Delivery Method Nasal Cannula Nasal Cannula Nasal Cannula Oxygen Flow Rate 4 4 4 Sepsis Recent Fever Within 48 Hours Sepsis New/Unexplained Change in Mental Status Sepsis Action Taken by Nursing 12/30/20 12:30 12/30/20 13:00 12/30/20 13:30 Temperature Temperature Source Pulse Rate 92 H 87 81 Pulse Rate [Apical] Pulse Rate from SpO2 Sensor 88 Respiratory Rate 17 15 19 Respiratory Effort / Characteristics Respiratory Depth Respiratory Pattern Blood Pressure 121/59 L 109/58 L 114/54 L Blood Pressure [Right Arm] Blood Pressure Mean 79 75 74 Blood Pressure Mean [Right Arm] Blood Pressure Position Pulse Oximetry 99 99 Oxygen Delivery Method Nasal Cannula Nasal Cannula Oxygen Flow Rate 4 4 Sepsis Recent Fever Within 48 Hours Sepsis New/Unexplained Change in Mental Status Sepsis Action Taken by Nursing 12/30/20 14:00 Temperature Temperature Source Pulse Rate 80 Pulse Rate [Apical] Pulse Rate from SpO2 Sensor Respiratory Rate 16 Respiratory Effort / Characteristics Respiratory Depth Respiratory Pattern Blood Pressure 114/58 L Blood Pressure [Right Arm] Blood Pressure Mean 76 Blood Pressure Mean [Right Arm] Blood Pressure Position Pulse Oximetry 99 Oxygen Delivery Method Nasal Cannula Oxygen Flow Rate 4 Sepsis Recent Fever Within 48 Hours Sepsis New/Unexplained Change in Mental Status Sepsis Action Taken by Nursing Laboratory Data Result diagrams: 12/30/20 10:24 12/30/20 10:24 Lab Results 12/30/20 12/30/20 12/30/20 Range/Units 10:24 10:24 10:24 WBC 11.21 H (4.8-10.8) K/uL RBC 4.60 L (4.7-6.1) M/uL Hgb 14.8 (14.0-18.0) g/dL Hct 45.0 (42-52) % MCV 97.8 (80-100) fL MCH 32.2 (25-34) pg MCHC 32.9 (32-36) g/dL RDW Std Deviation 54.7 H (36.4-46.3) fL RDW Coeff of Randolph 15.2 H (11.5-14.5) % Plt Count 160 (130-400) K/uL MPV 12.9 H (7.4-10.4) fL Immature Gran % (Auto) 0.2 % Neut % (Auto) 89.0 % Lymph % (Auto) 5.2 % [place] % (Auto) 4.5 % Eos % (Auto) 1.1 % Baso % (Auto) 0.0 % Neut # (Auto) 9.99 H (1.4-6.5) K/uL Lymph # (Auto) 0.58 L (1.2-3.4) K/uL [place] # (Auto) 0.50 (0.11-0.59) K/uL Eos # (Auto) 0.12 (0-0.5) K/uL Baso # (Auto) 0.00 (0-0.2) K/uL Immature Gran # (Auto) 0.02 (0.00-0.02) K/uL PT 19.2 H (9.0-12.0) Seconds INR 2.0 H (0.9-1.1) APTT 29.1 (21.0-31.0) Seconds PTT Ratio 1.1 Sodium 143 (136-145) mmol/L Potassium 3.2 L (3.5-5.1) mmol/L Chloride 106 (98-107) mmol/L Carbon Dioxide 35 H (21-32) mmol/L Anion Gap 2.0 L (3-11) BUN 20 H (7-18) mg/dl Creatinine 0.87 (0.6-1.4) mg/dl Est Cr Clr Drug Dosing 66.1 ml/min Est GFR ( Amer) 99.2 ml/min Est GFR (Non-Af Amer) 85.6 ml/min BUN/Creatinine Ratio 23.3 H (10-20) Glucose 135 H (70-99) mg/dl Lactate (0.4-2.0) mmol/L Calcium 9.1 (8.5-10.1) mg/dl Magnesium 1.7 L (1.8-2.4) mg/dl Total Bilirubin 0.6 (0.2-1) mg/dl AST 23 (15-37) U/L ALT 53 (12-78) U/L Alkaline Phosphatase 145 H (45-117) U/L Total Protein 6.5 (6.4-8.2) gm/dl Albumin 3.3 L (3.4-5.0) gm/dl Globulin 3.2 (2.5-4.0) gm/dl Albumin/Globulin Ratio 1.0 (0.9-2) COVID-19 Eval Order SARS-CoV-2 (PCR) (Negative) 12/30/20 12/30/20 12/30/20 Range/Units 10:24 13:30 13:30 WBC (4.8-10.8) K/uL RBC (4.7-6.1) M/uL Hgb (14.0-18.0) g/dL Hct (42-52) % MCV (80-100) fL MCH (25-34) pg MCHC (32-36) g/dL RDW Std Deviation (36.4-46.3) fL RDW Coeff of Randolph (11.5-14.5) % Plt Count (130-400) K/uL MPV (7.4-10.4) fL Immature Gran % (Auto) % Neut % (Auto) % Lymph % (Auto) % [place] % (Auto) % Eos % (Auto) % Baso % (Auto) % Neut # (Auto) (1.4-6.5) K/uL Lymph # (Auto) (1.2-3.4) K/uL [place] # (Auto) (0.11-0.59) K/uL Eos # (Auto) (0-0.5) K/uL Baso # (Auto) (0-0.2) K/uL Immature Gran # (Auto) (0.00-0.02) K/uL PT (9.0-12.0) Seconds INR (0.9-1.1) APTT (21.0-31.0) Seconds PTT Ratio Sodium (136-145) mmol/L Potassium (3.5-5.1) mmol/L Chloride (98-107) mmol/L Carbon Dioxide (21-32) mmol/L Anion Gap (3-11) BUN (7-18) mg/dl Creatinine (0.6-1.4) mg/dl Est Cr Clr Drug Dosing ml/min Est GFR ( Amer) ml/min Est GFR (Non-Af Amer) ml/min BUN/Creatinine Ratio (10-20) Glucose (70-99) mg/dl Lactate 1.4 (0.4-2.0) mmol/L Calcium (8.5-10.1) mg/dl Magnesium (1.8-2.4) mg/dl Total Bilirubin (0.2-1) mg/dl AST (15-37) U/L ALT (12-78) U/L Alkaline Phosphatase (45-117) U/L Total Protein (6.4-8.2) gm/dl Albumin (3.4-5.0) gm/dl Globulin (2.5-4.0) gm/dl Albumin/Globulin Ratio (0.9-2) COVID-19 Eval Order Covid19 at [facility] SARS-CoV-2 (PCR) NEGATIVE (Negative) Administered Medications Sodium Chloride (Nss 1000ml) 1,000 mls @ 150 mls/hr IV .[id number] MARIANA Stop: 01/29/21 10:14 Last Admin: 12/30/20 10:41 Dose: 150 mls/hr Documented by: [id number] Discontinued Medications Cefepime HCl (Maxipime) 2,000 mg in 20 mls @ 5 mls/min IV NOW STA; Protocol Stop: 12/30/20 10:14 Last Admin: 12/30/20 10:41 Dose: 5 mls/min Documented by: [id number] Daptomycin 300 mg/ Syringe 6 mls @ 3 mls/min IV NOW ONE; Protocol Stop: 12/30/20 12:52 Last Admin: 12/30/20 13:32 Dose: 3 mls/min Documented by: [id number] Discharge Plan Visit Data Chief Complaint: Infection Stated Complaint: LEFT LEG CELLULITIS,FUNGAL INFECTION ON BACK ED Provider: Say Trujillo Discharge Problem: Cellulitis of left leg, Leukocytosis, Acute hypotension, Abnormal ECG Patient Disposition: Admitted As Inpatient Discharge Instructions Interventions: ED Discharge Assessment Last Done: 12/30/20 16:15
[2020-12-30 10:37] LABS: Eosinophils # (auto) 0.12 K/uL (0-0.5); Eosinophils % (auto) 1.1 %; Hemoglobin 14.8 g/dL (14.0-18.0); Immature Granulocytes # (auto) 0.02 K/uL (0.00-0.02); Immature Granulocytes % (auto) 0.2 %; Lymphocytes # (auto) 0.58 K/uL (1.2-3.4); Lymphocytes % (auto) 5.2 %; Mean Corpuscular Hemoglobin 32.2 pg (25-34); Mean Corpuscular Hgb Conc 32.9 g/dL (32-36); Mean Corpuscular Volume 97.8 fL (80-100); Mean Platelet Volume 12.9 fL (7.4-10.4); Monocytes % (auto) 4.5 %; Neutrophils # (auto) 9.99 K/uL (1.4-6.5); Platelet Count 160 K/uL (130-400); RDW Coefficient of Variation 15.2 % (11.5-14.5); RDW Standard Deviation 54.7 fL (36.4-46.3); White Blood Count 11.21 K/uL (4.8-10.8)
[2020-12-30] MEDS: SODIUM CHLORIDE 0.9% 1000ML 1,000 ML IV SCH ×2 (10:41→17:31)
[2020-12-30 10:55] LABS: Albumin Level 3.3 gm/dl (3.4-5.0); BUN Creatinine Ratio 23.3 (10-20); Calcium 9.1 mg/dl (8.5-10.1); Creatinine Clr Calc Pharmacy 66.1 ml/min; Est GFR (African American) 99.2 ml/min; Est GFR (Non-African American) 85.6 ml/min; Magnesium 1.7 mg/dl (1.8-2.4); Potassium 3.2 mmol/L (3.5-5.1)
[2020-12-30 10:57] LABS: Bilirubin,Total 0.6 mg/dl (0.2-1); Globulin 3.2 gm/dl (2.5-4.0); Partial Thromboplastin Ratio 1.1; Partial Thromboplastin Time 29.1 Seconds (21.0-31.0); Prothrombin Time 19.2 Seconds (9.0-12.0); Total Protein 6.5 gm/dl (6.4-8.2)
[2020-12-30] MEDS ORDERED: DAPTOmycin 300 MG in SYRINGE 0 ML IV ONE (12:51)
--- NOTE | 2020-12-30 14:27 | History & Physical Report ---
Date of Service December 30, 2020 Assessment & Plan (1) Cellulitis of left leg: Recurrent cellulitis of left lower extremity Source is unclear. This could be a superficial injury leading to a staph infection Patient also has significant venous insufficiency secondary to tobacco abuse We will continue patient on cefepime every 12 hours and daptomycin every 24 hours IV Blood cultures are pending x2 Lactic acid is not elevated Patient is at risk for atypical organisms secondary to chronic prednisone use for severe COPD (2) Chronic respiratory failure with hypoxia: Patient is a lifelong smoker with severe COPD and chronic respiratory failure with hypoxia Continue supplemental oxygen at home rate of 4 L/min via nasal cannula Target SaO2 between 88 and 92% Most recent pulmonary function testing with FVC of 34% of predicted and an FEV1 of 20% of predicted. Patient also has uncorrected DLCO of 37% of predicted Continue home nebulizer treatments as well as inhaler treatments Currently patient is comfortable with no respiratory distress Patient recently started on prednisone taper 50 mg daily. We will continue prednisone and taper while inpatient Outpatient follow-up with pulmonary on discharge (3) Bicuspid aortic valve: Surgery in the Harsh murmur on exam Continue anticoagulation with warfarin INR is 2.0 (4) CAD (coronary artery disease): Patient with history of CABG and aortic valve replacement Continues to smoke daily Continue anticoagulation with warfarin Continue antiplatelet treatment with aspirin Continue atorvastatin Patient currently is not on GREGORY inhibitor or beta-merline secondary to chronic hypotension (5) Diabetes type 1, uncontrolled: Continue home insulin regimen Diabetic diet Check hemoglobin A1c in the morning Glycemic consult with pharmacy (6) Dyslipidemia: Continue statin (7) Diabetic peripheral neuropathy associated with type 1 diabetes mellitus: Continue Lyrica. Will give a dose now and next dose at 9 PM and then per schedule (8) COPD (chronic obstructive pulmonary disease): PFTs as listed above and chronic respiratory failure with hypoxia Continue home therapy regimen of inhalers and nebulizers Continue steroid taper as listed above Outpatient management per [facility] physician group pulmonary office (9) Smoking: Discussed need for smoking cessation Patient states he has been trying to cut back Order NicoDerm patch while inpatient (10) Venous insufficiency: Left lower extremity cellulitis with associated edema Pulses equal bilaterally to lower extremities and pedal's Does not appear to be deep vein thrombosis Patient anticoagulated with warfarin with an INR of 2.0 (11) Palliative care encounter: Discussed CODE STATUS with patient He states that he wants to be a level 1, full resuscitation Further management with Dr. Ochoa (12) Hypertension: Patient states that he is not been on any antihypertensives secondary to hypotension Monitor on telemetry (13) DVT prophylaxis: Continue warfarin Check INR daily Ambulate as tolerated History of Present Illness Primary Care Provider: Rajeev Alicea DO Attending: Dr. 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 The patient presents to the emergency room today with complaints of chronic left lower extremity cellulitis. He is seen in the emergency room and has a slight elevation of WBC with a negative lactic acid and no fever. Patient states he has had some chills at home but no fever, sweats, rigors. He has no nausea or vomiting. He denies any diarrhea. He does walk at home but has pain after short periods due to the swelling and infection of the left lower extremity. He is chronically anticoagulated on warfarin for mechanical aortic valve replacement and has a current INR of 2.0. The patient denies any shortness of breath. He has no cough. He denies history of Covid infection. He does report getting both vaccinations for COVID-19. He has no other acute complaints at this time. The patient is on chronic supplemental home O2 at 4 L/min via nasal cannula. He was most recently seen by Primo Steel PA-C in pulmonary on 12/06/2020. The patient was also recently seen by Dr. Lelo Ochoa for palliative care evaluation on 12/13/2020. Allergies Allergy/AdvReac Type Severity Reaction Status Date / Time latex AdvReac Intermediate Rash Verified 12/30/20 12:00 propoxyphene AdvReac Intermediate panic Verified 12/30/20 12:00 [From Jaclyn] attack Home Medications Medication Instructions Recorded Confirmed Type aspirin 81 mg tablet,delayed 81 mg PO QAM 02/10/20 12/30/20 History release Dexcom G6 Government Auditor #1 ea NS 02/23/20 12/13/20 Rx Dexcom G6 Sensor #3 ea NS 02/23/20 12/13/20 Rx Dexcom G6 Transmitter #1 ea NS 02/23/20 12/13/20 Rx sodium chloride 7 % for 4 ml INHALATION BID #240 ml 07/13/20 12/30/20 Rx nebulization Tresiba FlexTouch U-100 14 unit SQ HS 10/05/20 12/30/20 History albuterol sulfate [ProAir HFA] 2 puff INH Q6H PRN 10/05/20 12/30/20 History warfarin 4 mg PO UD 10/05/20 12/30/20 History warfarin 6 mg PO UD 10/05/20 12/30/20 History pregabalin 200 mg capsule 200 mg PO TID #90 cap 10/26/20 12/30/20 Rx atorvastatin 20 mg PO QDD 11/05/20 12/30/20 History duloxetine [Cymbalta] 60 mg PO QAM 11/05/20 12/30/20 History dutasteride 0.5 mg PO QAM 11/05/20 12/30/20 History insulin lispro 100 unit/mL See Rx Instructions SUBCUT TID 11/09/20 12/30/20 History subcutaneous pen Oxygen Home #1 ea 11/13/20 12/13/20 Rx blood sugar diagnostic #100 ea 11/14/20 12/13/20 Rx albuterol sulfate 2.5 mg INHALATION Q4H PRN #720 ml 11/16/20 12/30/20 Rx miscellaneous medical supply See Rx Instructions .ROUTE 11/16/20 12/13/20 Rx .COMPLEX #1 ea Vibration Vest See Rx Instructions .ROUTE 11/21/20 12/13/20 Rx .COMPLEX #1 ea budesonide 160 mcg-glycopyr 9 2 inh INHALATION BID #10.7 g 11/30/20 12/30/20 Rx mcg-formot 4.8 mcg/actuation HFA inhaler clonazepam 0.5 mg tablet 0.5 mg PO TID #90 tab 12/04/20 12/30/20 Rx azithromycin 250 mg tablet 250 mg PO .q M,W, and F 30 Days 12/24/20 12/30/20 Rx #12 tab azelastine 1 spray INTRANASAL BIDM 12/30/20 12/30/20 History glucagon [Glucagon Emergency Kit 1 mg SUBCUT Q20M PRN 12/30/20 12/30/20 History (human)] nystatin 5 ml PO QID 12/30/20 12/30/20 History prednisone 50 mg PO QAM 12/30/20 12/30/20 History terbinafine HCl [Lamisil] 1 applic TOPICAL BID 12/30/20 12/30/20 History topiramate [Topamax] 100 mg PO BID 12/30/20 12/30/20 History Past Med/Surg History Medical History Abnormal weight loss Aortic stenosis Ascending aortic aneurysm Bicuspid aortic valve CAD (coronary artery disease) Chronic respiratory failure with hypoxia Chronic respiratory failure with hypoxia, on home oxygen therapy COPD (chronic obstructive pulmonary disease) Diabetes type 1, uncontrolled Diabetic peripheral neuropathy associated with type 1 diabetes mellitus Dysesthesia Dyslipidemia Fungal skin infection Hypertension 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 Multifocal pneumonia Smoking Squamous cell carcinoma of right ear Venous insufficiency Surgical History H/O bilateral cataract extraction H/O mechanical aortic valve replacement History of hernia repair 2007 S/P ascending aortic aneurysm repair S/P AVR (aortic valve replacement) S/P CABG x 1 Family History Sister Breast cancer 3 sisters Colorectal cancer Brother COPD (chronic obstructive pulmonary disease) half brother Prostate cancer half brother Father Heart disease Myocardial infarction Daughter Diabetes Denies family history of Ovarian cancer Lung cancer Social History Smoking Status: Current every day smoker Tobacco Type: Cigarettes Age Started Using Tobacco: 20; Cigarettes Per Day: 2 cigars per day and pipe; Second Hand Exposure: No; Hx Alcohol Use: No Hx Substance Use: No Preferred Language: Slovak Communication Ability: Effective Visual Impairment: Limited Hearing Ability: Normal Admissions Gate Attendant Required: No Beliefs That Will Affect Care: None marital status: Current Living Situation: Spouse Current Living Situation Comment: spouse and daughter in [place] current occupational status: retired current occupation: [employer] How many Children do You have: 1 Feels Safe at Home: Yes Childhood Exposure to Second-Hand Smoke: No caffeine: Yes (coffee) Dental Care, Regularly: No Physical Activity Frequency: 3-4 Times per Week Seatbelt Use: always Sunscreen Use: No Assistive Devices: Oxygen - Continuous Review of Systems Review of Systems: All systems reviewed & are unremarkable except as noted in HPI & below Physical Exam Physical Exam: GENERAL : No acute distress EYES: No icterus, gaze conjugate. Pupils equal round and reactive bilaterally. Prosthetic lenses apparent in both corneas. NOSE: No evidence of epistaxis. Nasal cannula in place MOUTH: No lesions or candidiasis NECK: Supple LUNGS: CTA B/L, no wheezes, rales or rhonchi HEART: Regular, rate controlled. Harsh mechanical murmur. ABDOMEN: Soft, NT, ND, BS Present EXTREMITIES: LLE edema and evidence of cellulitis, pedal pulses intact and equal bilaterally. Feet are warm bilaterally. NEURO: A&OX3 Results & Data Results & Data ([facility]) Vital Signs (Past 12 Hours) Vital Signs Temp Pulse Pulse Resp BP BP Pulse Ox 12/30/20 14:00 80 16 114/58 L 99 12/30/20 13:30 81 19 114/54 L 12/30/20 13:00 87 15 109/58 L 99 12/30/20 12:30 92 H 17 121/59 L 99 12/30/20 12:00 89 18 115/57 L 100 12/30/20 11:54 99 H 22 134/73 97 12/30/20 11:30 90 19 101/48 L 100 12/30/20 11:00 86 20 112/51 L 100 12/30/20 10:36 84 19 98 12/30/20 10:35 84 20 130/63 100 12/30/20 10:34 84 20 100 12/30/20 10:31 84 20 130/63 98 12/30/20 09:46 36.8 C 97 H 22 92/54 L 99 Laboratory Results 12/30/20 10:24 12/30/20 10:24 Diagnostic Findings No diagnostic imaging performed in the emergency department Code Status & VTE Plan Code Status Level I full resuscitation VTE Prophylaxis Plan VTE Prophylaxis will be ordered: Yes Supervising Physician Co-Signing Physician Notes Patient was seen and examined independently I discussed the case with Faustino Moreno PA-C I reviewed pertinent past medical social family history and also the plan of care and agree with the plan of care. Patient is an abrupt onset of erythema and swelling to his left lower leg. Patient is a type I diabetic with peripheral vascular disease who is chronically anticoagulated with Coumadin for aortic valve replacement in 1989. Patient denies recent trauma but his leg is markedly swollen erythematous and tender. In the ER is given cefepime and daptomycin and these are continued his remainder of his other medical problems include lifelong tobacco use COPD coronary artery disease status post CABG and as mentioned diabetes which is in questionable control. Physical examination he is in no significant distress his vital signs are noted his cardiac exam is with a very active palpable PMI and thumping of his mecha nical valve his lungs are with poor air movement but clear without wheezes his abdomen normoactive bowel sounds and soft His extremities on the right is compressive garment in place this was removed without any erythema or edema. His left leg is without the compressive garment there is a's mottling of erythema throughout his mid wheat circumferentially he is 1-2+ edema however he has good pulses distally he may have some peripheral diabetic neuropathy present. Patient is here with a cellulitis of his left lower extremity. Discussions of Doppler were had however his INR is therapeutic and he is lifelong anticoagulated so we would likely discontinue anticoagulating him. If he does not resolve considerations could be and then consider his Coumadin failure although he is therapeutic. Continuing the antibiotics is chosen in the emergency department continuing his home care with regard to his diabetes with a diabetic pharmacy consultation and considering discussions with palliative care as the patient has multiple comorbidities complicated by noncompliance. Any exceptions will be noted below PG Care Time/CCT Total # of Minutes Spent Total Time Spent with Patient: Total time spent is greater than 50% in coordination of care (as documented) at patient's floor/unit and/or counseling patient: 60 minutes Coding Level of Care Code 68399 Initial Inpt Care Lvl 3 Diagnoses Cellulitis of left leg L03.116 Chronic respiratory failure with hypoxia J96.11 Bicuspid aortic valve Q23.1 CAD (coronary artery disease) I25.10 Diabetes type 1, uncontrolled E10.65 Dyslipidemia E78.5 Diabetic peripheral neuropathy associated with type 1 diabetes mellitus E10.42 COPD (chronic obstructive pulmonary disease) J44.1 COPD type: COPD with acute exacerbation Smoking F17.200 Venous insufficiency I87.2 Palliative care encounter Z51.5 Hypertension I10 DVT prophylaxis Z29.9 Time Spent (min) 60 (1) COPD (chronic obstructive pulmonary disease) COPD type: COPD with acute exacerbation Qualified Code(s): J44.1 - Chronic obstructive pulmonary disease with (acute) exacerbation
[2020-12-30 16:33] LABS: Appearance Urine Clear (Clear); Bilirubin Urine Negative (Negative); Blood Urine Negative (Negative); Color Urine Yellow; Glucose Urine UA Negative (Negative); Ketones Urine Negative (Negative); Leukocyte Esterase Urine Negative (Negative); Nitrite Urine Negative (Negative); Protein Urine Negative (Negative); Specific Gravity Urine 1.019 (1.000-1.030); Urobilinogen Urine Negative (Negative)
[2020-12-30] MEDS ORDERED: POTASSIUM CHLORIDE CRTAB 20 MEQ TABCR PO STA (16:42)
[2020-12-30] MEDS ORDERED: DEXTROSE 50% 50 ML SYRINGE IV PRN (16:42)
[2020-12-30] MEDS ORDERED: WARFARIN SOD 6 MG TAB PO SCH (16:42)
[2020-12-30] MEDS ORDERED: GLUCOSE 10 TABS/TUBE PO PRN (16:42)
[2020-12-30] MEDS ORDERED: GLUCOSE 40% GEL 15 GM TUBE PO PRN (16:42)
[2020-12-30] MEDS ORDERED: GLUCAGON FOR INJ 1 MG VIAL SQ PRN (16:42)
[2020-12-30] MEDS ORDERED: POLYETHYLENE (MIRALAX) 17 GM PACK PO PRN (16:42)
[2020-12-30] MEDS ORDERED: ACETAMINOPHEN 325 MG TAB PO PRN (16:42)
[2020-12-30] MEDS ORDERED: PHARMACY GLYCEMIC MGMT CONSULT SCH (17:28)
[2020-12-30] MEDS: MAGNESIUM SULFATE / D5W 1 GM/100 ML BAG IV SCH ×2 (17:32→19:42)
[2020-12-30] MEDS: ATORVASTATIN 20 MG TAB PO SCH (17:35)
[2020-12-30] MEDS ORDERED: ALBUTEROL HFA 8 GM INHALER INH PRN (17:41)
[2020-12-30 17:46] LABS: Creatine Kinase 30 U/L (39-308); Creatine Kinase MB 1.4 ng/ml (0.5-3.6); Troponin I < 0.015 ng/ml (0-0.045)
[2020-12-30] MEDS: PREGABALIN 100 MG CAP PO SCH ×2 (17:46→21:55)
[2020-12-30] MEDS: INSULIN ASPART 100 UNITS/ML 3 ML PEN SC SCH ×2 (19:13→21:57)
[2020-12-30] MEDS: NYSTATIN SUSP 500,000 U/5 ML UDC PO SCH ×2 (19:13→21:55)
[2020-12-30] MEDS ORDERED: NON-FORMULARY MEDICATION (Insulin Degludec [Tresiba Flextouch U-100] 100 unit/mL (3 mL) in SQ SCH (21:00)
[2020-12-30] MEDS ORDERED: INSULIN GLARGINE SOLOSTAR 100 UNITS/ML 3 ML PEN SC SCH (21:00)
[2020-12-30] MEDS: WARFARIN SOD 4 MG TAB PO SCH (21:53)
[2020-12-30] MEDS: CEFEPIME 2,000 MG in SYRINGE 0 ML IV SCH (21:54)
[2020-12-30] MEDS: clonazePAM 0.5 MG TAB PO SCH (21:55)
[2020-12-30] MEDS: TOPIRAMATE 100 MG TAB PO SCH (21:56)
[2020-12-31] MEDS: SODIUM CHLORIDE 0.9% 1000ML 1,000 ML IV SCH ×3 (00:22→14:26)
[2020-12-31] MEDS: AZELASTINE: ORDER AWAITING ACTION SCH ×4 (00:23→23:44)
[2020-12-31] MEDS: DUTASTERIDE: ORDER AWAITING ACTION SCH ×4 (00:25→23:44)
[2020-12-31] MEDS: INSULIN ASPART 100 UNITS/ML 3 ML PEN SC SCH ×6 (00:30→20:20)
[2020-12-31 04:59] LABS: Prothrombin Time 18.9 Seconds (9.0-12.0)
[2020-12-31 05:16] LABS: BUN Creatinine Ratio 22.4 (10-20); Blood Urea Nitrogen 18 mg/dl (7-18); Calcium 8.2 mg/dl (8.5-10.1); Carbon Dioxide 32 mmol/L (21-32); Chloride 109 mmol/L (98-107); Creatinine Clr Calc Pharmacy 69.6 ml/min; Est GFR (African American) 102.2 ml/min; Est GFR (Non-African American) 88.2 ml/min; Glucose 82 mg/dl (70-99); Phosphorus 1.7 mg/dl (2.5-4.9); Potassium 4.1 mmol/L (3.5-5.1); Sodium 144 mmol/L (136-145); Troponin I < 0.015 ng/ml (0-0.045)
--- NOTE | 2020-12-31 06:30 | Electrocardiogram Report ---
Test Reason : Blood Pressure : / mmHG Vent. Rate : 084 BPM Atrial Rate : 084 BPM P-R Int : 144 ms QRS Dur : 086 ms QT Int : 350 ms P-R-T Axes : 079 089 062 degrees QTc Int : 413 ms Normal sinus rhythm When compared with ECG of 05-NOV-2020 13:56, Premature ventricular complexes are no longer Present Confirmed by Zak Green ([id number]) on 12/31/2020 6:30:08 AM Referred By: REFERRED SELF Confirmed By:Zak Green
[2020-12-31 07:30] LABS: Estimated Average Glucose 217 mg/dl; Hemoglobin A1C 9.2 % (4.5-5.6)
[2020-12-31] MEDS ORDERED: INSULIN HUMAN NPH SC SCH (09:00)
[2020-12-31] MEDS: DULoxetine HCL 60 MG CAP PO SCH (09:19)
[2020-12-31] MEDS: ASPIRIN 81 MG ECTAB PO SCH (09:19)
[2020-12-31] MEDS: clonazePAM 0.5 MG TAB PO SCH ×2 (09:19→14:26)
[2020-12-31] MEDS: CEFEPIME 2,000 MG in SYRINGE 0 ML IV SCH (09:19)
[2020-12-31] MEDS: PREGABALIN 100 MG CAP PO SCH ×3 (09:19→20:31)
[2020-12-31] MEDS: NYSTATIN SUSP 500,000 U/5 ML UDC PO SCH ×4 (09:19→20:23)
[2020-12-31] MEDS: TOPIRAMATE 100 MG TAB PO SCH ×2 (09:20→20:25)
[2020-12-31] MEDS: predniSONE 10 MG TABLET PO SCH (09:49)
[2020-12-31] MEDS ORDERED: DAPTOmycin 250 MG in SYRINGE 0 ML IV SCH (13:00)
--- NOTE | 2020-12-31 14:01 | Pharmacy Report ---
Pharmacy Glycemic Short Note 2 - Date of Service December 31, 2020 - Glycemic Short BSG Results (Last 24 hours): 12/30/20 12/30/20 12/30/20 17:02 20:11 20:12 Glucose POC Glucose 218 H 330 H* 353 H* 12/31/20 12/31/20 12/31/20 00:11 04:18 04:37 Glucose POC Glucose 198 H 63 L* 81 12/31/20 12/31/20 12/31/20 04:40 07:45 11:38 Glucose 82 POC Glucose 82 71 12/31/20 13:31 Glucose POC Glucose 103 H OUTPATIENT ANTIDIABETIC REGIMEN: * Tresiba 13 units HS, humalog TIDM * A1c 9.2% on 12/31/20 ASSESSMENT: * 75 year old admitted with cellulitis of his leg. PMHx significant for T1DM, COPD, chronic prednisone use * Known to glycemic service from prior admission 09/2020 in which he was also on steroids. Plan to utilize similar NPH dosing to help cover steroids. * BSG this AM low at 63 mg/dL - treated per hypoglycemia protocol. Patient received 14 units of Lantus last evening. (spoke with DM educator and patient reports actually taking 13 units of Tresiba at home; I updated med rec) * Started NPH 25 units (0.4 units/kg) with prednisone 50 mg dosing (similar to other admission). * PO intake poor today, no PO intake for breakfast or lunch. BSGs on lower end of range 82-71-103. Scaled back on CR while NPH on board * May add scale for Lantus at HS to account for decreased PO intake PLAN FOR INPATIENT GLYCEMIC CONTROL: * Hold outpatient oral diabetes medications * Basal insulin * NPH 25 units daily - with prednisone 50 mg dosing * Lantus 10-13 units HS * Bolus insulin * NovoLog per scale ACHS or Q6hrs while NPO * Goal Range: Low 120 mg/dL - High 160 mg/dL * Correction Factor: 30 mg/dL/unit * Nutritional / Prandial insulin per carb ratio of 1 unit per 20 grams CHO consumed PLAN FOR DISCHARGE: * tbd
--- NOTE | 2020-12-31 16:01 | Hospitalist Progress Note ---
Date of Service December 31, 2020 Assessment & Plan (1) Cellulitis of left leg: Most likely explanation given the sudden onset. He has risk factors including skin wounds from the chronic edema, tobacco use, DM, and prednisone. - Continue abx -> Switch to vanc for monotherapy to cover MRSA/MSSA/Strep spc. - Monitor blood cultures - Will get LLE Doppler as he has had frequent hospitalizations and has been under-treated with his warfarin for 6 of his last 8 INR checks. (2) Chronic respiratory failure with hypoxia: Due to his severe COPD. - Presently at baseline. - Continue home O2 3L (3) Bicuspid aortic valve: History of a bicuspid aortic valve with s/p mechanical AVR 1998. He also had an ascending aortic aneurysm repair 2017. - Continue warfarin -> INR is 2.0 today. (4) CAD (coronary artery disease): CABG x 1 Vessel 1998 per prior note. No chest pain, no indication of ACS. - Continue home meds (5) Diabetes type 1, uncontrolled: A1c was 9.2% this admission. - Blood sugars initially high (350), but then went too low this morning. - Glycemic pharmacy consulted - Continue long-acting with sliding scale insulin (6) COPD (chronic obstructive pulmonary disease): Severe disease. Sees Dr. Mojica in clinic. - Continue home 3L O2 - Continue prednisone 50 mg PO daily -> Follow taper (7) Smoking: - Encourage cessation (8) Venous insufficiency: Follows with Dr. Condon for varicose veins and venous insufficiency. Had venous ablation a few months ago per the patient's . - Follow (9) Hypertension: BP today is 95/60. Per PCP notes, seems that he has been dealing with low blood pressure more than high blood pressure. - Monitor; not actually on any HTN medications. (10) DVT prophylaxis: INR - 2.0 for his warfarin and mechanical valve. Admission and Anticipated Discharge Date Admission Date: December 30, 2020 Subjective Doing better today. Improving pain in the left leg, less swelling today per his . Reports no fevers/chills, chest pain, shortness of breath, abdominal pain, nausea, or vomiting. Physical Exam Constitutional: WD/WN, vitals as above Eyes: EOM intact bilaterally; no conjunctival abnormality ENMT: external ear and nose normal, oropharynx normal Neck: trachea midline, no thyromegaly normal visual inspection Respiratory: normal respiratory effort, lungs clear to auscultation no respiratory distress Cardiovascular: RRR, no murmur, no edema Gastrointestinal (Abdomen): Inspection/Auscultation: abdomen normal to inspection; abdomen not distended Musculoskeletal: no cyanosis or clubbing, extremities motor strength 5/5 Skin: + induration and + erythema (On left wheat; less circumferential judging by prior note.) Neurologic: moves all extremities and awake Psychiatric: Orientation: alert, oriented to person and cooperative Results & Data Results & Data ([facility]) Vital Signs (Past 12 Hours) Vital Signs Temp Pulse Pulse Resp BP Pulse Ox 12/31/20 15:00 36.5 C 84 20 96/58 L 92 12/31/20 11:00 36.6 C 81 20 89/52 L 93 12/31/20 08:07 87 12/31/20 08:05 76 12/31/20 08:00 36.9 C 86 18 95/59 L 90 PG Care Time/CCT Total # of Minutes Spent Total Time Spent with Patient: Total time spent is greater than 50% in coordination of care (as documented) at patient's floor/unit and/or counseling patient: Coding Level of Care Code 18042 Subseq Hosp Care Lvl 3 Diagnoses Cellulitis of left leg L03.116 Chronic respiratory failure with hypoxia J96.11 Bicuspid aortic valve Q23.1 CAD (coronary artery disease) I25.10 Diabetes type 1, uncontrolled E10.65 COPD (chronic obstructive pulmonary disease) J44.1 COPD type: COPD with acute exacerbation Smoking F17.200 Venous insufficiency I87.2 Hypertension I10 DVT prophylaxis Z29.9 (1) COPD (chronic obstructive pulmonary disease) COPD type: COPD with acute exacerbation Qualified Code(s): J44.1 - Chronic obstructive pulmonary disease with (acute) exacerbation
[2020-12-31] MEDS ORDERED: VANCOMYCIN CONSULT ACTIVE PRN (16:15)
--- NOTE | 2020-12-31 16:39 | Pharmacy Report ---
Pharmacy Abx Dose Short Note - Date of Service December 31, 2020 - Assessment & Plan Assessment 75 year old M receiving VANC for treatment of SST (cellulitis L leg) Day # 2 of antimicrobial therapy (previously on dapto/cefepime). Plan Vancomycin * Patient meets criteria for vancomycin AUC dosing nomogram * AUC/DONAVAN is the preferred PK/PD target for vancomycin * Target AUC/DONAVAN = 400-600 * AUC guided dosing is effective and associated with decreased risk of nep hrotoxicity * VANC trough level @ Css prior to 01/02 0600 dose Pharmacy will continue to follow and will adjust dose/frequency as necessary. Thank you.
[2020-12-31] MEDS ORDERED: clonazePAM 0.5 MG TAB PO PRN (17:08)
--- NOTE | 2020-12-31 17:17 | Ultrasound Report ---
US venous doppler LE LT HISTORY: 75 years-old Male Left leg swelling, pain, redness acute pain and swelling of the left lowe r extremity COMPARISON: None TECHNIQUE: Multiple real-time sonographic images of the left lower extremity deep venous structures w ere obtained assessing grayscale appearance, color and spectral flow FINDINGS: Normal flow, compressibility, phasicity and augmentation. No occlusive deep venous thrombi identified . There is minimal peripheral areas of increased echogenicity noted within the common femoral vein. IMPRESSION: 1. No acute occlusive deep venous thrombosis. 2. Small focal area of mildly increased echogenicity involves the periphery of the common femoral vei n which may reflect venous calcifications or chronic deep venous thrombosis. ACT 112: Negative or not required by law. The above report was generated using voice recognition software. It may contain grammatical, syntax o r spelling errors. Electronically signed by: Jus Johnson M.D. 12/31/2020 5:16 PM
[2020-12-31] MEDS: ATORVASTATIN 20 MG TAB PO SCH (17:52)
[2020-12-31] MEDS: WARFARIN SOD 4 MG TAB PO SCH (17:52)
[2020-12-31] MEDS ORDERED: VANCOMYCIN HCL 1,500 MG in SODIUM CHLORIDE 0.9% 500 ML IV ONE (18:00)
[2020-12-31] MEDS: TERBINAFINE CR 30 GM TUBE EXT SCH (20:31)
[2020-12-31] MEDS ORDERED: INSULIN GLARGINE SOLOSTAR 100 UNITS/ML 3 ML PEN SC SCH ×3 (21:00)
[2021-01-01] MEDS: ALBUTEROL 0.083% NEBU SOLN 3 ML VIAL INH PRN ×3 (02:33→17:58)
--- NOTE | 2021-01-01 05:48 | Electrocardiogram Report ---
Test Reason : Blood Pressure : / mmHG Vent. Rate : 090 BPM Atrial Rate : 090 BPM P-R Int : 136 ms QRS Dur : 088 ms QT Int : 348 ms P-R-T Axes : 079 092 075 degrees QTc Int : 425 ms Normal sinus rhythm Rightward axis Nonspecific T wave abnormality Abnormal ECG When compared with ECG of 30-DEC-2020 10:21, No significant change was found Confirmed by Zak Green ([id number]) on 01/01/2021 5:48:37 AM Referred By: REFERRED SELF Confirmed By:Zak Green
[2021-01-01] MEDS: VANCOMYCIN HCL 1,000 MG in SODIUM CHLORIDE 0.9% 250 ML IV SCH ×2 (06:31→17:45)
[2021-01-01 07:29] LABS: INR 2.2 (0.9-1.1); Prothrombin Time 21.1 Seconds (9.0-12.0)
[2021-01-01] MEDS: CARBOHYDRATES FOR HYPOGLYCEMIA PO PRN ×2 (07:30→07:45)
[2021-01-01 07:44] LABS: BUN Creatinine Ratio 29.8 (10-20); Calcium 8.2 mg/dl (8.5-10.1); Creatinine Clr Calc Pharmacy 103.3 ml/min; Est GFR (African American) 118.1 ml/min; Est GFR (Non-African American) 101.9 ml/min; Potassium 3.4 mmol/L (3.5-5.1)
[2021-01-01] MEDS: AZELASTINE: ORDER AWAITING ACTION SCH ×3 (07:55→23:39)
[2021-01-01] MEDS: DUTASTERIDE: ORDER AWAITING ACTION SCH ×3 (07:55→23:40)
[2021-01-01] MEDS: INSULIN ASPART 100 UNITS/ML 3 ML PEN SC SCH ×3 (07:56→21:37)
[2021-01-01] MEDS: ASPIRIN 81 MG ECTAB PO SCH (08:41)
[2021-01-01] MEDS: DULoxetine HCL 60 MG CAP PO SCH (08:42)
[2021-01-01] MEDS: NYSTATIN SUSP 500,000 U/5 ML UDC PO SCH ×5 (08:44→21:30)
[2021-01-01] MEDS: predniSONE 10 MG TABLET PO SCH (08:44)
[2021-01-01] MEDS: TERBINAFINE CR 30 GM TUBE EXT SCH ×2 (08:45→21:33)
[2021-01-01] MEDS: TOPIRAMATE 100 MG TAB PO SCH ×2 (08:46→21:30)
[2021-01-01] MEDS: PREGABALIN 100 MG CAP PO SCH ×3 (08:50→21:29)
--- NOTE | 2021-01-01 10:53 | Pharmacy Report ---
Pharmacy Glycemic Short Note 2 - Date of Service January 01, 2021 - Glycemic Short BSG Results (Last 24 hours): 12/31/20 12/31/20 12/31/20 11:38 13:31 16:31 Glucose POC Glucose 71 103 H 176 H 12/31/20 01/01/21 01/01/21 20:14 06:46 07:30 Glucose 65 L POC Glucose 250 H 53 L* 01/01/21 01/01/21 01/01/21 07:30 07:44 07:45 Glucose POC Glucose 58 L* 44 L* 52 L* 01/01/21 07:59 Glucose POC Glucose 72 OUTPATIENT ANTIDIABETIC REGIMEN: * Tresiba 13 units HS, humalog TIDM * A1c 9.2% on 12/31/20 ASSESSMENT: 01/01 * Patient received total of 45 units of insulin yesterday, of which 25 units were NPH to cover PO pred 50 mg and 13 units were home basal dose * Fasting BSG low again this AM 58 - treated per hypoglycemia protocol with 30 gm CHO. PM basal dose had been reduced ~10% from night before. Will need to reduce home basal dose for tonight to hopefully avoid further AM hypoglycemia. Will scale back ~30% of PM Lantus for tonight * Held AM NPH with steroids this AM to make sure BSGs recover, will dose with lunch time check. BSGs yesterday 103-176-250 with NPH on board. NPH is intermediate acting, do not feel that this is contributing to AM hypoglycemia. PO intake still remains poor, could account for low BSG in AM while on home basal dose 12/31 * 75 year old admitted with cellulitis of his leg. PMHx significant for T1DM, COPD, chronic prednisone use * Known to glycemic service from prior admission 09/2020 in which he was also on steroids. Plan to utilize similar NPH dosing to help cover steroids. * BSG this AM low at 63 mg/dL - treated per hypoglycemia protocol. Patient received 14 units of Lantus last evening. (spoke with DM educator and patient reports actually taking 13 units of Tresiba at home; I updated med rec) * Started NPH 25 units (0.4 units/kg) with prednisone 50 mg dosing (similar to other admission). * PO intake poor today, no PO intake for breakfast or lunch. BSGs on lower end of range 82-71-103. Scaled back on CR while NPH on board * May add scale for Lantus at HS to account for decreased PO intake PLAN FOR INPATIENT GLYCEMIC CONTROL: * Hold outpatient oral diabetes medications * Basal insulin - decreased * NPH 25 units daily - with prednisone 50 mg dosing * Lantus 9 units q HS * Bolus insulin * NovoLog per scale ACHS or Q6hrs while NPO * Goal Range: Low 120 mg/dL - High 160 mg/dL * Correction Factor: 30 mg/dL/unit * Nutritional / Prandial insulin per carb ratio of 1 unit per 11 grams CHO consumed PLAN FOR DISCHARGE: * tbd
[2021-01-01] MEDS: POTASSIUM CHLORIDE 10 MEQ TABCR PO SCH ×2 (12:00→21:30)
[2021-01-01] MEDS ORDERED: INSULIN HUMAN NPH SC ONE (12:30)
[2021-01-01] MEDS: cefTRIAXone SODIUM 2,000 MG in DEXTROSE 5% 50 ML IV SCH (15:08)
--- NOTE | 2021-01-01 15:46 | Hospitalist Progress Note ---
Date of Service January 01, 2021 Assessment & Plan (1) Bacteremia: Blood cultures on 12/30 grew Gram(-) bacilli. Species pending. - Added ceftriaxone on 01/01 - Monitor for sensitivities (2) Cellulitis of left leg: Most likely explanation given the sudden onset. He has risk factors including skin wounds from the chronic edema, tobacco use, DM, and prednisone. LLE Doppler on 12/31 showed some calcium or possible chronic DVT. No acute DVT. - Continue abx -> Switched to vanc for monotherapy to cover MRSA/MSSA/Strep spc. - Added ceftriaxone on 01/01 for the Gram(-) bacteremia. (3) Chronic respiratory failure with hypoxia: Due to his severe COPD. - Presently at baseline. - Continue home O2 3L (4) Bicuspid aortic valve: History of a bicuspid aortic valve with s/p mechanical AVR 1998. He also had an ascending aortic aneurysm repair 2017. - Continue warfarin -> INR is 2.2 today. (5) CAD (coronary artery disease): CABG x 1 Vessel 1998 per prior note. No chest pain, no indication of ACS. - Continue home meds (6) Diabetes type 1, uncontrolled: A1c was 9.2% this admission. - Blood sugars initially high (350), but then went too low this morning. - Glycemic pharmacy consulted - Continue long-acting with sliding scale insulin; using NPH as well. Daughter gives insulin at home and is willing to try that as well. (7) COPD (chronic obstructive pulmonary disease): Severe disease. Sees Dr. Mojica & Primo Steel in clinic. - Continue home 3L O2 - Continue prednisone 50 mg PO daily -> Follow up with pulm. He was not really on a "taper" so much as gradually reducing dose. Was going to see Primo in the office this week to consider lowing to 40 mg. (8) Smoking: - Encourage cessation (9) Venous insufficiency: Follows with Dr. Condon for varicose veins and venous insufficiency. Had venous ablation a few months ago per the patient's . - Follow up with them. Also discussed lymphedema clinic with the patient's daughter as a good resource. (10) Hypertension: BP today is 95/60. Per PCP notes, seems that he has been dealing with low blood pressure more than high blood pressure. - Monitor; not actually on any HTN medications. (11) DVT prophylaxis: INR - 2.2 for his warfarin and mechanical aortic valve. Admission and Anticipated Discharge Date Admission Date: December 30, 2020 Subjective Stable today. Improving pain in the left leg, less swelling today. Still some mild swelling. Reports no fevers/chills, chest pain, shortness of breath, abdominal pain, nausea, or vomiting. Physical Exam Constitutional: WD/WN, vitals as above Eyes: EOM intact bilaterally; no conjunctival abnormality ENMT: external ear and nose normal, oropharynx normal Neck: trachea midline, no thyromegaly normal visual inspection Respiratory: normal respiratory effort, lungs clear to auscultation no respiratory distress Cardiovascular: RRR, no murmur, no edema Gastrointestinal (Abdomen): Inspection/Auscultation: abdomen normal to inspection; abdomen not distended Musculoskeletal: no cyanosis or clubbing, extremities motor strength 5/5 Skin: + induration and + erythema (On left wheat; less circumferential judging by prior note.) Neurologic: moves all extremities and awake Psychiatric: Orientation: alert, oriented to person and cooperative Results & Data Results & Data ([facility]) Vital Signs (Past 12 Hours) Vital Signs Temp Pulse Pulse Pulse Resp BP Pulse Ox 01/01/21 14:49 36.7 C 85 20 92/54 L 93 01/01/21 11:41 101 H 01/01/21 11:05 36.9 C 79 18 114/67 92 01/01/21 07:40 36.9 C 83 18 102/62 96 01/01/21 07:02 80 18 95 01/01/21 04:00 85 PG Care Time/CCT Total # of Minutes Spent Total Time Spent with Patient: Total time spent is greater than 50% in coordination of care (as documented) at patient's floor/unit and/or counseling patient: Coding Level of Care Code 73010 Subseq Hosp Care Lvl 3 Diagnoses Bacteremia R78.81 Cellulitis of left leg L03.116 Chronic respiratory failure with hypoxia J96.11 Bicuspid aortic valve Q23.1 CAD (coronary artery disease) I25.10 Diabetes type 1, uncontrolled E10.65 COPD (chronic obstructive pulmonary disease) J44.1 COPD type: COPD with acute exacerbation Smoking F17.200 Venous insufficiency I87.2 Hypertension I10 DVT prophylaxis Z29.9 (1) COPD (chronic obstructive pulmonary disease) COPD type: COPD with acute exacerbation Qualified Code(s): J44.1 - Chronic obstructive pulmonary disease with (acute) exacerbation
[2021-01-01] MEDS: WARFARIN SOD 4 MG TAB PO SCH (16:18)
[2021-01-01] MEDS: ATORVASTATIN 20 MG TAB PO SCH (16:18)
[2021-01-01] MEDS ORDERED: INSULIN ASPART 100 UNITS/ML 3 ML PEN SC SCH (16:30)
[2021-01-01] MEDS ORDERED: INSULIN GLARGINE SOLOSTAR 100 UNITS/ML 3 ML PEN SC ONE (21:00)
[2021-01-01] MEDS ORDERED: INSULIN GLARGINE SOLOSTAR 100 UNITS/ML 3 ML PEN SC SCH ×2 (21:00)
[2021-01-02] MEDS: INSULIN ASPART 100 UNITS/ML 3 ML PEN SC SCH ×5 (00:05→17:35)
[2021-01-02] MEDS ORDERED: VANCOMYCIN TROUGH ONE (05:30)
[2021-01-02 06:05] LABS: Mean Corpuscular Hgb Conc 32.9 g/dL (32-36)
--- NOTE | 2021-01-02 06:06 | Electrocardiogram Report ---
Test Reason : Blood Pressure : / mmHG Vent. Rate : 083 BPM Atrial Rate : 083 BPM P-R Int : 136 ms QRS Dur : 092 ms QT Int : 372 ms P-R-T Axes : 072 075 075 degrees QTc Int : 437 ms Normal sinus rhythm Nonspecific T wave abnormality Abnormal ECG When compared with ECG of 31-DEC-2020 05:16, No significant change was found Confirmed by Zak Green ([id number] on 01/02/2021 6:06:35 AM Referred By: REFERRED SELF Confirmed By:Zak Green
[2021-01-02 06:12] LABS: INR 2.9 (0.9-1.1); Prothrombin Time 27.2 Seconds (9.0-12.0)
[2021-01-02] MEDS: VANCOMYCIN HCL 1,000 MG in SODIUM CHLORIDE 0.9% 250 ML IV SCH (06:12)
[2021-01-02 06:14] LABS: Hematocrit (blood only) 35.6 % (42-52); Hemoglobin 11.7 g/dL (14.0-18.0); Mean Corpuscular Hemoglobin 31.9 pg (25-34); RDW Coefficient of Variation 15.4 % (11.5-14.5); RDW Standard Deviation 55.4 fL (36.4-46.3); Red Blood Count 3.67 M/uL (4.7-6.1); White Blood Count 7.66 K/uL (4.8-10.8)
[2021-01-02 06:31] LABS: Mean Platelet Volume 13.3 fL (7.4-10.4); Platelet Count 140 K/uL (130-400)
[2021-01-02 06:32] LABS: Platelet Estimate Normal (Normal)
[2021-01-02 06:33] LABS: BUN Creatinine Ratio 33.4 (10-20); Calcium 8.4 mg/dl (8.5-10.1); Creatinine Clr Calc Pharmacy 89.5 ml/min; Est GFR (African American) 109.8 ml/min; Est GFR (Non-African American) 94.7 ml/min; Magnesium 1.7 mg/dl (1.8-2.4); Potassium 3.9 mmol/L (3.5-5.1)
[2021-01-02] MEDS: DUTASTERIDE: ORDER AWAITING ACTION SCH ×2 (08:42→15:06)
[2021-01-02] MEDS: AZELASTINE: ORDER AWAITING ACTION SCH ×2 (08:42→15:06)
[2021-01-02] MEDS ORDERED: INSULIN HUMAN NPH SC SCH (09:00)
[2021-01-02] MEDS: PREGABALIN 100 MG CAP PO SCH ×2 (09:14→13:02)
[2021-01-02] MEDS: TOPIRAMATE 100 MG TAB PO SCH (09:16)
[2021-01-02] MEDS: predniSONE 10 MG TABLET PO SCH (09:16)
[2021-01-02] MEDS: DULoxetine HCL 60 MG CAP PO SCH (09:16)
[2021-01-02] MEDS: NYSTATIN SUSP 500,000 U/5 ML UDC PO SCH ×3 (09:16→17:37)
[2021-01-02] MEDS: ASPIRIN 81 MG ECTAB PO SCH (09:16)
[2021-01-02] MEDS: TERBINAFINE CR 30 GM TUBE EXT SCH (09:17)
--- NOTE | 2021-01-02 09:25 | Pharmacy Report ---
Pharmacy Abx Dose Short Note - Date of Service January 02, 2021 - Assessment & Plan Assessment 75 year old M receiving IV VANCOMYCIN + CEFTRIAXONE for treatment of Cellulitis + Bacteremia Day # 3 of Vancomycin #2 Ceftriaxone (added yesterday for Gram Negative bacilli growing in 1/2 blood cultures) Renal function stable, WBC normal, afebrile Plan Vancomycin * Trough level of 16.2 mcg/mL is therapeutic * Continue dose of 1000 mg IV every 12 hours * Goal trough level for cellulitis + bacteremia: 15 to 20 mcg/ml * Further levels to be ordered based on duration of therapy Pharmacy will continue to follow and will adjust dose/frequency as necessary. Thank you.
--- NOTE | 2021-01-02 12:18 | Pharmacy Report ---
Pharmacy Glycemic Short Note 2 - Date of Service January 02, 2021 - Glycemic Short BSG Results (Last 24 hours): 01/01/21 01/01/21 01/01/21 13:49 16:23 20:07 Glucose POC Glucose 202 H 276 H 312 H* 01/01/21 01/02/21 01/02/21 23:33 03:48 05:26 Glucose 195 H POC Glucose 344 H* 212 H 01/02/21 01/02/21 07:48 11:32 Glucose POC Glucose 161 H 281 H OUTPATIENT ANTIDIABETIC REGIMEN: * Tresiba 13 units HS, humalog TIDM * A1c 9.2% on 12/31/20 ASSESSMENT: 01/02 * Patient received 34 units of insulin yesterday, 13 units Lantus, 21 units Novolog, no NPH d/t low blood sugars in the AM * Patient requires NPH to cover steroid effects, will add smaller dose this morning and reduce PM Lantus to prevent AM hypoglycemia * Patient continues on prednisone taper, 50mg PO today * Patient type 1 DM very labile blood sugars, change goal range to prevent hypoglycemia 01/01 * Patient received total of 45 units of insulin yesterday, of which 25 units were NPH to cover PO pred 50 mg and 13 units were home basal dose * Fasting BSG low again this AM 58 - treated per hypoglycemia protocol with 30 gm CHO. PM basal dose had been reduced ~10% from night before. Will need to reduce home basal dose for tonight to hopefully avoid further AM hypoglycemia. Will scale back ~30% of PM Lantus for tonight * Held AM NPH with steroids this AM to make sure BSGs recover, will dose with lunch time check. BSGs yesterday 103-176-250 with NPH on board. NPH is intermediate acting, do not feel that this is contributing to AM hypoglycemia. PO intake still remains poor, could account for low BSG in AM while on home basal dose 12/31 * 75 year old admitted with cellulitis of his leg. PMHx significant for T1DM, COPD, chronic prednisone use * Known to glycemic service from prior admission 09/2020 in which he was also on steroids. Plan to utilize similar NPH dosing to help cover steroids. * BSG this AM low at 63 mg/dL - treated per hypoglycemia protocol. Patient received 14 units of Lantus last evening. (spoke with DM educator and patient reports actually taking 13 units of Tresiba at home; I updated med rec) * Started NPH 25 units (0.4 units/kg) with prednisone 50 mg dosing (similar to other admission). * PO intake poor today, no PO intake for breakfast or lunch. BSGs on lower end of range 82-71-103. Scaled back on CR while NPH on board * May add scale for Lantus at HS to account for decreased PO intake PLAN FOR INPATIENT GLYCEMIC CONTROL: * Hold outpatient oral diabetes medications * Basal insulin - decrease * NPH 12 units daily - with prednisone 50 mg dosing * Lantus 8 units q HS (13 units for BSG > 250mg/dl) * Bolus insulin * NovoLog per scale ACHS or Q6hrs while NPO * change: Goal Range: Low 140 mg/dL - High 180 mg/dL * Correction Factor: 30 mg/dL/unit * Nutritional / Prandial insulin per carb ratio of 1 unit per 10 grams CHO consumed PLAN FOR DISCHARGE: * tbd
[2021-01-02] MEDS ORDERED: MAGNESIUM SULFATE / D5W 1 GM/100 ML BAG IV SCH (14:36)
--- NOTE | 2021-01-02 14:43 | Hospitalist Progress Note ---
Date of Service January 02, 2021 Assessment & Plan (1) Bacteremia: Blood cultures on 12/30 grew Gram(-) bacilli. Species pending. - Added ceftriaxone on 01/01 - Monitor for sensitivities (2) Cellulitis of left leg: Most likely explanation given the sudden onset. He has risk factors including skin wounds from the chronic edema, tobacco use, DM, and prednisone. LLE Doppler on 12/31 showed some calcium or possible chronic DVT. No acute DVT. - Continue abx -> Switched to vanc for monotherapy to cover MRSA/MSSA/Strep spc. - Added ceftriaxone on 01/01 for the Gram(-) bacteremia. (3) Chronic respiratory failure with hypoxia: Due to his severe COPD. - Presently at baseline. - Continue home O2 3L (4) Bicuspid aortic valve: History of a bicuspid aortic valve with s/p mechanical AVR 1998. He also had an ascending aortic aneurysm repair 2017. - Continue warfarin -> INR is 2.2 today. (5) CAD (coronary artery disease): CABG x 1 Vessel 1998 per prior note. No chest pain, no indication of ACS. - Continue home meds (6) Diabetes type 1, uncontrolled: A1c was 9.2% this admission. - Blood sugars initially high (350), but then went too low this morning. - Glycemic pharmacy consulted - Continue long-acting with sliding scale insulin; using NPH as well. Daughter gives insulin at home and is willing to try that as well. (7) COPD (chronic obstructive pulmonary disease): Severe disease. Sees Dr. Mojica & Primo Steel in clinic. - Continue home 3L O2 - Continue prednisone 50 mg PO daily -> Follow up with pulm. He was not really on a "taper" so much as gradually reducing dose. Was going to see Primo in the office this week to consider lowing to 40 mg. (8) Smoking: - Encourage cessation (9) Venous insufficiency: Follows with Dr. Condon for varicose veins and venous insufficiency. Had venous ablation a few months ago per the patient's . - Follow up with them. Also discussed lymphedema clinic with the patient's daughter as a good resource. (10) Hypertension: BP today is 95/60. Per PCP notes, seems that he has been dealing with low blood pressure more than high blood pressure. - Monitor; not actually on any HTN medications. (11) DVT prophylaxis: INR - 2.2 for his warfarin and mechanical aortic valve. Admission and Anticipated Discharge Date Admission Date: December 30, 2020 Subjective Stable today. Improving pain in the left leg, less swelling today. Feels well and requests to go home. Reports no fevers/chills, chest pain, shortness of breath, abdominal pain, nausea, or vomiting. Physical Exam Constitutional: WD/WN, vitals as above Eyes: EOM intact bilaterally; no conjunctival abnormality ENMT: external ear and nose normal, oropharynx normal Neck: trachea midline, no thyromegaly normal visual inspection Respiratory: normal respiratory effort, lungs clear to auscultation no respiratory distress Cardiovascular: RRR, no murmur, no edema Gastrointestinal (Abdomen): Inspection/Auscultation: abdomen normal to inspection; abdomen not distended Musculoskeletal: no cyanosis or clubbing, extremities motor strength 5/5 Skin: + induration and + erythema (On left wheat; less circumferential judging by prior note.) Neurologic: moves all extremities and awake Psychiatric: Orientation: alert, oriented to person and cooperative Results & Data Results & Data ([facility]) Vital Signs (Past 12 Hours) Vital Signs Temp Pulse Pulse Resp BP Pulse Ox 01/02/21 11:00 36.9 C 81 20 102/62 93 01/02/21 08:00 36.6 C 73 20 106/61 94 01/02/21 07:00 76 01/02/21 03:10 36.8 C 78 19 104/63 97 PG Care Time/CCT Total # of Minutes Spent Total Time Spent with Patient: Total time spent is greater than 50% in coordination of care (as documented) at patient's floor/unit and/or counseling patient: Coding Diagnoses Bacteremia R78.81 Cellulitis of left leg L03.116 Chronic respiratory failure with hypoxia J96.11 Bicuspid aortic valve Q23.1 CAD (coronary artery disease) I25.10 Diabetes type 1, uncontrolled E10.65 COPD (chronic obstructive pulmonary disease) J44.1 COPD type: COPD with acute exacerbation Smoking F17.200 Venous insufficiency I87.2 Hypertension I10 DVT prophylaxis Z29.9 (1) COPD (chronic obstructive pulmonary disease) COPD type: COPD with acute exacerbation Qualified Code(s): J44.1 - Chronic obstructive pulmonary disease with (acute) exacerbation
[2021-01-02] MEDS: cefTRIAXone SODIUM 2,000 MG in DEXTROSE 5% 50 ML IV SCH (15:23)
[2021-01-02] MEDS: ATORVASTATIN 20 MG TAB PO SCH (15:28)
[2021-01-02] MEDS ORDERED: WARFARIN SOD 2 MG TAB PO SCH (16:00)
--- NOTE | 2021-01-02 16:33 | Discharge Summary ---
Date of Service January 02, 2021 Admission HPI Per Admitting Provider Attending: Dr. 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 The patient presents to the emergency room today with complaints of chronic left lower extremity cellulitis. He is seen in the emergency room and has a slight elevation of WBC with a negative lactic acid and no fever. Patient states he has had some chills at home but no fever, sweats, rigors. He has no nausea or vomiting. He denies any diarrhea. He does walk at home but has pain after short periods due to the swelling and infection of the left lower extremity. He is chronically anticoagulated on warfarin for mechanical aortic valve replacement and has a current INR of 2.0. The patient denies any shortness of breath. He has no cough. He denies history of Covid infection. He does report getting both vaccinations for COVID-19. He has no other acute complaints at this time. The patient is on chronic supplemental home O2 at 4 L/min via nasal cannula. He was most recently seen by Primo Steel PA-C in pulmonary on 12/06/2020. The patient was also recently seen by Dr. Lelo Ochoa for palliative care evaluation on 12/13/2020. Principal Diagnosis Left leg cellulitis Discharge Exam Constitutional WD/WN, vitals as above Eyes EOM intact bilaterally; no conjunctival abnormality ENMT external ear and nose normal, oropharynx normal Neck trachea midline, no thyromegaly normal visual inspection Respiratory normal respiratory effort, lungs clear to auscultation no respiratory distress Cardiovascular RRR, no murmur, no edema Gastrointestinal (Abdomen) Inspection/Auscultation: abdomen normal to inspection; abdomen not distended Musculoskeletal no cyanosis or clubbing, extremities motor strength 5/5 Skin no rashes, warm and dry + erythema (Improving erythema) Neurologic moves all extremities and awake Psychiatric Orientation: alert, oriented to person and cooperative Discharge Data Allergies Allergy/AdvReac Type Severity Reaction Status Date / Time latex AdvReac Intermediate Rash Verified 12/30/20 12:00 propoxyphene AdvReac Intermediate panic Verified 12/30/20 12:00 [From Tiffanie-Janice] attack Consultations 12/30/20 14:17 ED Decision to Admit Stat Ordered Studies 12/31/20 16:14 US venous doppler LE LT Urgent Diabetes Follow up Diabetes Follow-up Needed for HgbA1c >9% Hospital Course (1) Bacteremia: Blood cultures on 12/30 growing Gram(-) bacilli. Species pending. - Added ceftriaxone on 01/01 - Monitor for sensitivities -> Discussed with lab. Still no species today. Hopefully tomorrow. Discussed with daughter who prefers to take him him. WBC and erythema improving, so I do think we're seeing treatment response. We did discuss the risk that he would worsen off the IV antibiotics. Given the patient's strong desire to go home, patient and family were willing to take the risk. - Discharged on doxycycline and cefdinir to cover usual cellulitis bugs as well as the Gram(-). (2) Cellulitis of left leg: Most likely explanation given the sudden onset. He has risk factors including skin wounds from the chronic edema, tobacco use, DM, and prednisone. LLE Doppler on 12/31 showed some calcium or possible chronic DVT. No acute DVT. - Continue abx -> Switched to vanc for monotherapy to cover MRSA/MSSA/Strep spc. - Added ceftriaxone on 01/01 for the Gram(-) bacteremia. - As above, discharged on doxycycline and cefdinir. (3) Chronic respiratory failure with hypoxia: Due to his severe COPD. - Presently at baseline. - Continue home O2 3L (4) Bicuspid aortic valve: History of a bicuspid aortic valve with s/p mechanical AVR 1998. He also had an ascending aortic aneurysm repair 2017. - Continue warfarin -> INR is 2.9 today. Will take 1/2 dose of warfarin (2mg) and daughter will check INR tomorrow (has a home reader). (5) CAD (coronary artery disease): CABG x 1 Vessel 1998 per prior note. No chest pain, no indication of ACS. - Continue home meds (6) Diabetes type 1, uncontrolled: A1c was 9.2% this admission. - Blood sugars initially high (350), but then went too low this morning. - Glycemic pharmacy consulted - Continue long-acting with sliding scale insulin; using NPH as well. Daughter gives insulin at home and is willing to try that as well. - Discharged on NPH 12 units daily while on prednisone 50 mg, discharge instructions with step-down for when he goes to 40 mg and 30 mg. (7) COPD (chronic obstructive pulmonary disease): Severe disease. Sees Dr. Mojica & Primo Steel in clinic. - Continue home 3L O2 - Continue prednisone 50 mg PO daily -> Follow up with pulm. He was not really on a "taper" so much as gradually reducing dose. Was going to see Primo in the office this week to consider lowering to 40 mg. (8) Smoking: - Encourage cessation (9) Venous insufficiency: Follows with Dr. Condon for varicose veins and venous insufficiency. Had venous ablation a few months ago per the patient's . - Follow up with them. Also discussed lymphedema clinic with the patient's daughter as a good resource. (10) Hypertension: BP today is 95/60. Per PCP notes, seems that he has been dealing with low blood pressure more than high blood pressure. - Monitor; not actually on any HTN medications. (11) DVT prophylaxis: INR - 2.9 for his warfarin and mechanical aortic valve. Total Time Total Time Spent Total Time Spent (In Minutes): 35 Discharge Plan Discharge Items Patient Disposition: Home - Self-Care Reason For Visit: LEFT LOWER EXTREMITY CELLULITIS Discharge Diagnosis: Left leg cellulitis Activity: Resume your previous activity Non-emergency contact: Primary Care Provider Call non-emergency contact if: your pain is not controlled and your temperature is above 101 Follow-up/Referrals: Rajeev Alicea DO [Primary Care Provider] - 01/08/21 11:30 am Diet: Carb Consistent or DM2 and Heart Healthy Addtl Attending Provider Instructions: Mr. Mendez, You were admitted to the hospital with left leg cellulitis. I think your risks for this are relatively high because of your need for the steroids and the swelling in your leg from your vein problems. We started you on two antibiotics to help take care of this infection, and it seems to be slowly improving. We did grow some bacteria out of one of your blood cultures. This bacteria is growing very slowly, so we have not determined what species it is or what antibiotics will work well for it. Since you are feeling better on the IV antibiotics, we are going to send you home on antibiotics that mirror your current IV ones. We will send a 10-day supply of both antibiotics (doxycycline and cefdinir). Take your next dose of each tonight before bedtime. If you start to feel worse, have fevers, have more redness, or other concerning symptoms, please return to the hospital. Since prednisone make your blood sugars jump, please try to use the NPH insulin in the morning when you take the steroid. When taking prednisone 50 mg, we have been using NPH 12 units with good effect. If the prednisone gets dropped to 40 mg, you may want to drop the NPH down to 9 units (and prednisone 30 mg = 6 units of NPH). Finally, we dropped your warfarin to 2 mg today because your INR was trending up. Please check your INR over the next few days to be sure your INR is staying steady. Pending Studies at Discharge: No Stand-Alone Forms: My [facility] [employer], Smoking Cessation Medications and DC Order Prescriptions: New Novolin N NPH U-100 Insulin 100 unit/mL Suspension 12 unit SC DAILY Qty: 10 RF: 0 doxycycline hyclate 100 mg capsule 100 mg PO BID 10 Days Qty: 20 RF: 0 cefdinir 300 mg capsule 300 mg PO BID 10 Days Qty: 20 RF: 0 Continued pregabalin [Lyrica] 200 mg capsule 200 mg PO TID Qty: 90 RF: 1 (DME) Oxygen Home Liters Per Minute See Rx Instructions .MEDSUPPLY Qty: 1 RF: 0 (DME) OneTouch Ultra Blue Test Strip Strip See Rx Instructions .ROUTE .MEDSUPPLY Qty: 100 RF: 6 Vibration Vest Misc See Rx Instructions .ROUTE .COMPLEX Qty: 1 RF: 0 Breztri Aerosphere 160-9-4.8 mcg/actuation HFA aerosol inhaler 2 inh inhalation BID Qty: 10.7 RF: 5 clonazepam 0.5 mg tablet 0.5 mg PO TID Qty: 90 RF: 0 albuterol sulfate 2.5 mg /3 mL (0.083 %) solution for nebulization 2.5 mg inhalation Q4H PRN (Reason: shortness of breath or wheezing) Qty: 720 RF: 5 sodium chloride 7 % solution for nebulization 4 ml inhalation BID Qty: 240 RF: 5 econazole 1 % cream 1 applic TOP BID Qty: 85 RF: 2 terbinafine HCl 250 mg tablet 250 mg PO DAILY 21 Days Qty: 21 RF: 0 aspirin [Adult Low Dose Aspirin] 81 mg tablet,delayed release (DR/EC) 81 mg PO QAM RF: 0 (DME) Dexcom G6 Bar Welder Misc See Rx Instructions .MEDSUPPLY Qty: 1 RF: 0 (DME) Dexcom G6 Sensor Device See Rx Instructions .MEDSUPPLY Qty: 3 RF: 11 (DME) Dexcom G6 Transmitter Device See Rx Instructions .MEDSUPPLY Qty: 1 RF: 3 misc Misc See Rx Instructions .ROUTE .COMPLEX Qty: 1 RF: 0 azithromycin 250 mg tablet 250 mg PO .q M,W, and F 30 Days Qty: 12 RF: 3 albuterol sulfate [ProAir HFA] 90 mcg/actuation HFA aerosol inhaler 2 puff INH Q6H PRN (Reason: shortness of breath or wheezing) RF: 0 warfarin 4 mg tablet 4 mg PO UD RF: 0 warfarin 6 mg Tablet 6 mg PO UD RF: 0 Tresiba FlexTouch U-100 100 unit/mL (3 mL) insulin pen 13 unit SQ HS RF: 0 insulin lispro [Humalog KwikPen Insulin] 100 unit/mL insulin pen See Rx Instructions subcut TID RF: 0 atorvastatin 20 mg tablet 20 mg PO QDD RF: 0 dutasteride 0.5 mg capsule 0.5 mg PO QAM RF: 0 duloxetine [Cymbalta] 60 mg capsule,delayed release(DR/EC) 60 mg PO QAM RF: 0 topiramate [Topamax] 100 mg tablet 100 mg PO BID RF: 0 prednisone 10 mg tablet 50 mg PO QAM RF: 0 azelastine 137 mcg (0.1 %) aerosol,spray 1 spray intranasal BIDM RF: 0 Glucagon Emergency Kit (human) 1 mg Recon Soln 1 mg subcut Q20M PRN (Reason: .) RF: 0 terbinafine HCl 1 % Cream 1 applic TOPICAL BID RF: 0 nystatin 100,000 unit/mL Suspension 5 ml PO QID RF: 0 Discharge Orders: Discharge Order (Routine); Ordered 01/02/21 Ordered By: Len Wall Admission Data Admit Date/Time: 12/30/20 14:21 Attending Provider: Len Wall Admit Provider: Eric Youngblood Primary Care Provider: Rajeev Alicea Other Providers: Eric Youngblood Other Interventions: Discharge Summary Assessment (RN) Last Done: 01/02/21 16:11 Coding Level of Care Code D/C Day Management >30 mins Diagnoses Bacteremia R78.81 Cellulitis of left leg L03.116 Chronic respiratory failure with hypoxia J96.11 Bicuspid aortic valve Q23.1 CAD (coronary artery disease) I25.10 Diabetes type 1, uncontrolled E10.65 COPD (chronic obstructive pulmonary disease) J44.1 COPD type: COPD with acute exacerbation Smoking F17.200 Venous insufficiency I87.2 Hypertension I10 DVT prophylaxis Z29.9
[2021-01-02] MEDS ORDERED: INSULIN GLARGINE SOLOSTAR 100 UNITS/ML 3 ML PEN SC SCH (21:00)
== END 2021-01-02 18:08 | disposition home or self-care (01) | DRG 603 ==
LOC: ED 09:36 → 2W 14:21 → SUATTDRO 14:21 → 2W 16:15

== ENCOUNTER 2021-04-22 14:35 | Inpatient (IN) ==
--- NOTE | 2021-04-22 16:23 | Emergency Department Note ---
History of Present Illness General Chief complaint: Pain (Generalized) Stated complaint: PAIN Time Seen by Provider: 04/22/21 16:19 Source: patient and family History of Present Illness Provider complaint: Right low back pain Onset (ago): week(s) Location: back and right Radiation: abdomen (Right groin) Pain Consistency: + intermittent Maximum Pain Intensity: 9 Quality: + sharp Exacerbated By: + other (Walking) Associated symptoms: no chest pain, no cough, no fever/chills, no naus ea/vomiting or no shortness of breath This is a 75-year-old male who presents with right low back pain rating into his groin for over a week. He describes it as sharp. He states it is especially worse when he tries to walk. He rates it a 9 out of 10 in severity. He denies any fall or injury. He has some associated burning with urination. He states that he was seen here yesterday and diagnosed with a passed kidney stone. He has persistent pain which is unchanged. He denies any fever, vomiting, chest pain, shortness of breath, diarrhea, fecal urinary incontinence or numbness or weakness to his legs. He does state that he has diabetic neuropathy. He has some the leg pain from this but states that it is unrelated to his back pain. He also states that he has been constipated for 5 days. He is chronically on antifungal medication. He does take nystatin for oral thrush. His daughter also states that he was recently placed on steroids and Augmentin for his COPD. Home Medications Medication Instructions Recorded Confirmed Type aspirin 81 mg tablet,delayed 81 mg PO QAM 02/10/20 04/22/21 History release (Adult Low Dose Aspirin) Dexcom G6 Cyber Systems Administrator (blood-glucose #1 ea NS 02/23/20 04/22/21 Rx meter,continuous) Dexcom G6 Sensor (blood-glucose #3 ea NS 02/23/20 04/22/21 Rx sensor) Dexcom G6 Transmitter #1 ea NS 02/23/20 04/22/21 Rx (blood-glucose transmitter) insulin degludec 100 unit/mL (3 13 unit SQ HS 10/05/20 04/22/21 History mL) subcutaneous pen (Tresiba FlexTouch U-100 insulin) duloxetine 60 mg capsule,delayed 60 mg PO QAM 11/05/20 04/22/21 History release (Cymbalta) Oxygen Home #1 ea 11/13/20 04/22/21 Rx blood sugar diagnostic (OneTouch #100 ea 11/14/20 04/22/21 Rx Ultra Blue Test Strip) budesonide 160 mcg-glycopyr 9 2 inh INHALATION BID #10.7 g 11/30/20 04/22/21 Rx mcg-formot 4.8 mcg/actuation HFA inhaler (Breztri Aerosphere) topiramate 100 mg tablet (Topamax) 100 mg PO BID 12/30/20 04/22/21 History insulin syringe-needle U-100 0.3 #100 ea 01/03/21 04/22/21 Rx mL 31 gauge x 5/16" (BD Insulin Syringe Ultra-Fine) albuterol sulfate 90 mcg/actuation 2 puff INH Q6H PRN #1 inhaler 02/04/2103/30 Rx aerosol inhaler (ProAir HFA) albuterol sulfate 2.5 mg INHALATION QID 02/26/21 04/22/21 History fexofenadine 180 mg tablet 180 mg PO QAM 02/26/21 04/22/21 History (Flora Allergy) guaifenesin 1,200 mg tablet, 1,200 mg PO BID 02/26/21 04/22/21 History extended release 12 hr (Mucinex) insulin NPH isoph U-100 human 100 12 unit SC DAILY PRN 02/26/21 04/22/21 History unit/mL subcutaneous suspension (Novolin N NPH U-100 Insulin isophane) insulin lispro 100 unit/mL 1 sliding scale dose SUBCUT TIDM 02/26/21 04/22/21 History subcutaneous solution (Humalog U-100 Insulin) warfarin 4 mg tablet (Jantoven) See Rx Instructions .ROUTE .COMPLEX 02/26/21 04/22/21 History pregabalin 200 mg capsule (Lyrica) 200 mg PO TID #90 cap 03/01/21 04/22/21 Rx calcitonin (salmon) 200 1 spray INTRANASAL (ALT) QAM 03/03/21 04/22/21 History unit/actuation nasal spray lorazepam 0.5 mg tablet (Ativan) 0.5 mg PO Q6H PRN 03/03/21 04/22/21 History sodium chloride 7 % for 4 ml INHALATION BID 03/03/21 04/22/21 History nebulization (Pulmosal) lidocaine 5 % topical patch 1 patch TOP DAILY PRN #30 ea 03/15/21 04/22/21 Rx (Lidoderm) terbinafine HCl 250 mg tablet 250 mg PO DAILY #30 tab 03/28/21 04/22/21 Rx azithromycin 250 mg tablet 250 mg PO DAILY tab 04/10/21 04/22/21 History (Zithromax) amoxicillin 875 mg-potassium 1 tab PO Q12H #20 tab 04/16/21 04/22/21 Rx clavulanate 125 mg tablet (Augmentin) furosemide 20 mg tablet 20 mg PO DAILY #30 tab 04/16/21 04/22/21 Rx prednisone 10 mg tablet 40 mg PO DAILY tab 04/16/21 04/22/21 History acetaminophen 500 mg tablet 500 mg PO TID PRN 04/22/21 04/22/21 History oxycodone 5 mg tablet 5 mg PO DIRECTED PRN 04/22/21 04/22/21 History Allergies Allergy/AdvReac Type Severity Reaction Status Date / Time clonazepam AdvReac Severe SEE COMMENT Verified 04/22/21 16:38 latex AdvReac Intermediate Rash Verified 04/22/21 16:38 propoxyphene AdvReac Intermediate panic Verified 04/22/21 16:38 [From Jaclyn] attack Past Med/Surg History Medical History Abnormal weight loss Aortic stenosis Ascending aortic aneurysm Bicuspid aortic valve CAD (coronary artery disease) Chronic respiratory failure with hypoxia Chronic respiratory failure with hypoxia, on home oxygen therapy COPD (chronic obstructive pulmonary disease) Diabetes type 1, uncontrolled Diabetic peripheral neuropathy associated with type 1 diabetes mellitus Dysesthesia Dyslipidemia Fungal skin infection Hypertension 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 Multifocal pneumonia Smoking Squamous cell carcinoma of right ear Venous insufficiency Surgical History H/O bilateral cataract extraction H/O mechanical aortic valve replacement History of hernia repair 2007 S/P ascending aortic aneurysm repair S/P AVR (aortic valve replacement) S/P CABG x 1 Family History Sister Breast cancer 3 sisters Colorectal cancer Brother COPD (chronic obstructive pulmonary disease) half brother Prostate cancer half brother Father Heart disease Myocardial infarction Daughter Diabetes Other No family history of adverse response to anesthesia No family history of bleeding disorder Denies family history of Ovarian cancer Lung cancer Social History Smoking Status: Never smoker Tobacco Type: Cigarettes Age Started Using Tobacco: 20; Cigarettes Per Day: pipe 8 to 10 times a day; Second Hand Exposure: Yes; Hx Alcohol Use: No Hx Substance Use: No Preferred Language: Maltese Communication Ability: Effective Visual Impairment: Limited Hearing Ability: Normal Software Support Engineer Required: No Beliefs That Will Affect Care: None marital status: Current Living Situation: Spouse and Family Current Living Situation Comment: spouse and daughter in [place] current occupational status: retired current occupation: [employer] How many Children do You have: 1 Feels Safe at Home: Yes Childhood Exposure to Second-Hand Smoke: No caffeine: Yes (coffee) Dental Care, Regularly: No Physical Activity Frequency: 3-4 Times per Week Seatbelt Use: always Sunscreen Use: No Assistive Devices: Oxygen - Continuous and Walker Review of Systems See HPI for pertinent positives & negatives. and A total of 10 systems reviewed and were otherwise negative Physical Exam Vital Signs Vital Signs - 24 hr 04/22/21 14:37 04/22/21 17:06 04/22/21 19:18 Temperature 36.3 C L Temperature Source Temporal Artery Scan Pulse Rate 91 H Pulse Rate [Right Finger] 81 88 Pulse Rhythm [Right Finger] Regular Pulse Strength [Right Finger] Normal Respiratory Rate 18 20 20 Respiratory Effort / Characteristics Non-Labored Non-Labored Non-Labored Respiratory Depth Normal Normal Normal Respiratory Pattern Regular Regular Blood Pressure 112/61 Blood Pressure [Right Arm] 131/63 148/76 H Blood Pressure Mean 78 Blood Pressure Mean [Right Arm] 85 100 Blood Pressure Position [Right Arm] Lying Lying Pulse Oximetry 92 100 100 Oxygen Delivery Method Nasal Cannula Nasal Cannula Oxygen Flow Rate 2 2 Sepsis Recent Fever Within 48 Hours No Sepsis New/Unexplained Change in Mental Status No Sepsis Action Taken by Nursing No Action Required Constitutional: Vital signs reviewed. Eyes: Pupils are equal round reactive to light. Conjunctiva are noninjected. ENT: Pharynx is clear without erythema or exudate. Mucous membranes are moist. Oral thrush. Neck supple without meningeal signs. Respiratory: Clear to auscultation bilaterally. Breath sounds are equal bilaterally. Cardiovascular: Regular rate and rhythm. No rubs or gallops. GI: Soft, nondistended and nontender. Bowel sounds are present. Rectal: Guaiac positive dark brown stool. Musculoskeletal: No peripheral edema. No lower extremity tenderness. Motor and sensation are intact throughout the lower extremities. Negative straight leg raise bilaterally. Integumentary: No cyanosis. or jaundice. Neurological: The patient is awake and alert. No focal deficits. Psychiatric: Normal affect. Not anxious appearing. Course Administered Medications Discontinued Medications Fluconazole (Fluconazole 50 Mg Tab) 200 mg PO NOW ONE Stop: 04/22/21 17:22 Last Admin: 04/22/21 17:41 Dose: 200 mg Documented by: [id number] Ketorolac Tromethamine (Ketorolac Tromethamine 10 Mg Tablet) 10 mg PO NOW STA Stop: 04/22/21 17:10 Last Admin: 04/22/21 17:40 Dose: 10 mg Documented by: [id number] Medical Decision Making Differential Diagnosis Degenerative disc disease, lumbar radiculopathy, renal colic, ureteral spasm, UTI Medical Records Attestation: I reviewed the patient's medical records. I did perform a limited focused review of portions of the patient's old chart on the electronic medical record. The patient was seen yesterday for a week of low back pain which radiated into his right flank. He had a CT scan of the abdomen pelvis which demonstrated several bladder stones. He had hematuria and it was thought that he had renal colic from passing kidney stones. He did have degenerative changes in his lower spine. He was also noted to have a significant amount of stool in his rectum. Home Medications Current Medication List: was personally reviewed by me Laboratory Data Attestation: I reviewed the patient's lab results. Result diagrams: 04/22/21 18:14 04/22/21 18:14 Lab Results 04/22/21 04/22/21 04/22/21 Range/Units 18:14 18:14 18:14 WBC 5.07 (4.8-10.8) K/uL RBC 3.63 L (4.7-6.1) M/uL Hgb 11.3 L (14.0-18.0) g/dL Hct 36.0 L (42-52) % MCV 99.2 (80-100) fL MCH 31.1 (25-34) pg MCHC 31.4 L (32-36) g/dL RDW Std Deviation 53.1 H (36.4-46.3) fL RDW Coeff of Randolph 14.7 H (11.5-14.5) % Plt Count 121 L (130-400) K/uL MPV 12.9 H (7.4-10.4) fL Immature Gran % (Auto) 0.2 % Neut % (Auto) 93.3 % Lymph % (Auto) 4.5 % [place] % (Auto) 1.4 % Eos % (Auto) 0.6 % Baso % (Auto) 0.0 % Neut # (Auto) 4.73 (1.4-6.5) K/uL Lymph # (Auto) 0.23 L (1.2-3.4) K/uL [place] # (Auto) 0.07 L (0.11-0.59) K/uL Eos # (Auto) 0.03 (0-0.5) K/uL Baso # (Auto) 0.00 (0-0.2) K/uL Immature Gran # (Auto) 0.01 (0.00-0.02) K/uL Platelet Estimate Decreased L (Normal) Poikilocytosis Present PT 22.4 H (9.0-12.0) Seconds INR 2.4 H (0.9-1.1) Sodium 140 (136-145) mmol/L Potassium 4.4 D (3.5-5.1) mmol/L Chloride 107 (98-107) mmol/L Carbon Dioxide 32 (21-32) mmol/L Anion Gap 1.0 L (3-11) BUN 21 H (7-18) mg/dl Creatinine 0.78 (0.6-1.4) mg/dl Est Cr Clr Drug Dosing 56.3 ml/min Est GFR ( Amer) 103.8 ml/min Est GFR (Non-Af Amer) 89.6 ml/min BUN/Creatinine Ratio 27.1 H (10-20) Glucose 195 H (70-99) mg/dl Calcium 8.6 (8.5-10.1) mg/dl Imaging Data Radiologist's Impression: KUB X-Ray 04/22/21 17:06 KUB CLINICAL HISTORY: nonobstructive nephrolithiasis COMPARISON STUDY: CT of the abdomen and pelvis April 21, 2021. FINDINGS: Electronic device projects over the left flank. There are numerous calcified gallstones within the gallbladder. There is no evidence for a bowel obstruction. Left renal calculus shown on CT is not visualized on this exam. This is likely obscured by stool. No ureteral calculi are identified. There is a moderate amount stool within the colon and rectum. IMPRESSION: 1. Urinary calculi on prior CT not visualized on this exam. These are likely obscured by stool. 2. No evidence for a bowel obstruction. Moderate amount of stool. 3. Cholelithiasis. ACT 112: Negative or not required by law. Electronically signed by: Raffy Crespo M.D. 04/22/2021 5:49 PM [facility] Narrative I did evaluate the patient as noted above. The patient is presenting with over a week of right lower back pain rating into his groin. He states it is much worse when he walks. He was seen here yesterday had a CT scan which did show degenerative changes in the spine. He also had bladder stones as well as hematuria which seem to suggest renal colic. Given his persistent pain and worsening when he walks his pain seems likely musculoskeletal in nature. He also has not had a bowel movement in 5 days and feels constipated which is likely contributing to his symptoms. He is neurovascular intact and has no signs of cauda equina syndrome. Urine culture from yesterday showed yeast. He has thrush on exam and I suspect he does have a UTI from yeast. I did discuss this with the ED pharmacist who recommended 200 mg of Diflucan for 14 days. He was given a dose here. His daughter was told to stop his terbinafine which she takes chronically. IV access was established. I did order a urine analysis. I did order and review the patient's blood work as noted in the electronic medical record. His white blood cell count is not elevated. His hemoglobin is down to 11.3 from 13.4 yesterday. Platelet count is 121 although he did have thrombocytopenia in the past. His INR is 2.4. I did perform a rectal examination which showed guaiac positive brown stool. Electrolytes are unremarkable and his creatinine is 0.78. I did order a KUB x-ray. I did review the images myself as well as the radiology report as described above. There is no evidence of ureterolithiasis. He does have constipation. I did order a milk and molasses enema. He did have a bowel movement. He did feel better afterwards. I did discuss his test results with him. He was started on IV Protonix with a drip. He will be hospitalized for further care and evaluation. I did discuss case with the hospitalist and window caser. Resident Physician Supervision Note: I did perform an independent evaluation and examination of this patient as described. I also saw this patient in conjunction with the resident, Dr. Rebolledo., and guided management for the patient. Impression & Plan Acute GI bleeding, Low back pain, Oral thrush, Constipation, Yeast UTI, Anticoagulated on warfarin, Thrombocytopenia Discharge Plan Visit Data Chief Complaint: Pain (Generalized) Stated Complaint: PAIN ED Provider: Eric Troncoso ED Midlevel Provider: Fernando Rebolledo Discharge Problem: Acute GI bleeding, Low back pain, Oral thrush, Constipation, Yeast UTI, Ant icoagulated on warfarin, Thrombocytopenia Patient Disposition: Being Evaluated by Hospitalist Forms Stand Alone Forms: My [facility] Prescriptions Prescriptions: No Action azithromycin [Zithromax] 250 mg tablet 250 mg PO DAILY RF: 0 (DME) Oxygen Home Liters Per Minute See Rx Instructions .MEDSUPPLY Qty: 1 RF: 0 (DME) OneTouch Ultra Blue Test Strip Strip See Rx Instructions .ROUTE .MEDSUPPLY Qty: 100 RF: 6 Breztri Aerosphere 160-9-4.8 mcg/actuation HFA aerosol inhaler 2 inh inhalation BID Qty: 10.7 RF: 5 (DME) insulin syringe-needle U-100 [BD Insulin Syringe Ultra-Fine] 0.3 mL 31 gauge x 5/16" syringe See Rx Instructions .ROUTE .MEDSUPPLY Qty: 100 RF: 0 albuterol sulfate [ProAir HFA] 90 mcg/actuation HFA aerosol inhaler 2 puff INH Q6H PRN (Reason: shortness of breath or wheezing) Qty: 1 RF: 5 lidocaine [Lidoderm] 5 % adhesive patch,medicated 1 patch TOP DAILY PRN (Reason: pain. diabetic neuropathy.) Qty: 30 RF: 0 terbinafine HCl 250 mg tablet 250 mg PO DAILY Qty: 30 RF: 0 amoxicillin-pot clavulanate [Augmentin] 875-125 mg tablet 1 tab PO Q12H Qty: 20 RF: 0 aspirin [Adult Low Dose Aspirin] 81 mg tablet,delayed release (DR/EC) 81 mg PO QAM RF: 0 (DME) Dexcom G6 Cyber Systems Administrator Misc See Rx Instructions .MEDSUPPLY Qty: 1 RF: 0 (DME) Dexcom G6 Sensor Device See Rx Instructions .MEDSUPPLY Qty: 3 RF: 11 (DME) Dexcom G6 Transmitter Device See Rx Instructions .MEDSUPPLY Qty: 1 RF: 3 pregabalin [Lyrica] 200 mg capsule 200 mg PO TID Qty: 90 RF: 1 furosemide 20 mg tablet 20 mg PO DAILY Qty: 30 RF: 5 Tresiba FlexTouch U-100 100 unit/mL (3 mL) insulin pen 13 unit SQ HS RF: 0 duloxetine [Cymbalta] 60 mg capsule,delayed release(DR/EC) 60 mg PO QAM RF: 0 acetaminophen [Tylenol Ex Str Arthritis Pain] 500 mg Tablet 500 mg PO TID PRN (Reason: Pain) RF: 0 oxycodone 5 mg tablet 5 mg PO DIRECTED PRN (Reason: Pain) RF: 0 topiramate [Topamax] 100 mg tablet 100 mg PO BID RF: 0 albuterol sulfate 2.5 mg /3 mL (0.083 %) solution for nebulization 2.5 mg inhalation QID RF: 0 Novolin N NPH U-100 Insulin 100 unit/mL suspension 12 unit SC DAILY PRN (Reason: WHEN TAKES PREDNISONE) RF: 0 fexofenadine [Flora Allergy] 180 mg Tablet 180 mg PO QAM RF: 0 warfarin [Jantoven] 4 mg Tablet See Rx Instructions mg .ROUTE .COMPLEX RF: 0 insulin lispro [Humalog U-100 Insulin] 100 unit/mL Solution 1 sliding scale dose SUBCUT TIDM RF: 0 Mucinex 1,200 mg Tablet Extended Release 12hr 1,200 mg PO BID RF: 0 prednisone 10 mg tablet 40 mg PO DAILY RF: 0 lorazepam [Ativan] 0.5 mg tablet 0.5 mg PO Q6H PRN (Reason: anxiety) RF: 0 calcitonin (salmon) 200 unit/actuation spray,non-aerosol 1 spray intranasal (ALT) QAM RF: 0 sodium chloride [Pulmosal] 7 % solution for nebulization 4 ml inhalation BID RF: 0 Referrals Referrals: Rajeev Alicea DO [Primary Care Provider] -
[2021-04-22] MEDS ORDERED: KETOROLAC TROMETHAMINE 10 MG TABLET PO STA (17:09)
[2021-04-22] MEDS ORDERED: FLUCONAZOLE 50 MG TAB PO ONE (17:21)
--- NOTE | 2021-04-22 17:51 | XRay Report ---
KUB CLINICAL HISTORY: nonobstructive nephrolithiasis COMPARISON STUDY: CT of the abdomen and pelvis April 21, 2021. FINDINGS: Electronic device projects over the left flank. There are numerous calcified gallstones wit hin the gallbladder. There is no evidence for a bowel obstruction. Left renal calculus shown on CT is not visualized on this exam. This is likely obscured by stool. No ureteral calculi are identified. T here is a moderate amount stool within the colon and rectum. IMPRESSION: 1. Urinary calculi on prior CT not visualized on this exam. These are likely obscured by stool. 2. No evidence for a bowel obstruction. Moderate amount of stool. 3. Cholelithiasis. ACT 112: Negative or not required by law. Electronically signed by: Raffy Crespo M.D. 04/22/2021 5:49 PM
[2021-04-22 18:45] LABS: INR 2.4 (0.9-1.1); Prothrombin Time 22.4 Seconds (9.0-12.0)
[2021-04-22 18:55] LABS: BUN Creatinine Ratio 27.1 (10-20); Calcium 8.6 mg/dl (8.5-10.1); Creatinine Clr Calc Pharmacy 56.3 ml/min; Est GFR (African American) 103.8 ml/min; Est GFR (Non-African American) 89.6 ml/min; Potassium 4.4 mmol/L (3.5-5.1)
[2021-04-22 19:01] LABS: Eosinophils # (auto) 0.03 K/uL (0-0.5); Eosinophils % (auto) 0.6 %; Hemoglobin 11.3 g/dL (14.0-18.0); Immature Granulocytes # (auto) 0.01 K/uL (0.00-0.02); Immature Granulocytes % (auto) 0.2 %; Lymphocytes # (auto) 0.23 K/uL (1.2-3.4); Lymphocytes % (auto) 4.5 %; Mean Corpuscular Hemoglobin 31.1 pg (25-34); Mean Corpuscular Hgb Conc 31.4 g/dL (32-36); Mean Corpuscular Volume 99.2 fL (80-100); Mean Platelet Volume 12.9 fL (7.4-10.4); Monocytes # (auto) 0.07 K/uL (0.11-0.59); Monocytes % (auto) 1.4 %; Neutrophils # (auto) 4.73 K/uL (1.4-6.5); Neutrophils % (auto) 93.3 %; Platelet Count 121 K/uL (130-400); Platelet Estimate Decreased (Normal); Poikilocytosis Present; RDW Coefficient of Variation 14.7 % (11.5-14.5); RDW Standard Deviation 53.1 fL (36.4-46.3); Red Blood Count 3.63 M/uL (4.7-6.1); White Blood Count 5.07 K/uL (4.8-10.8)
[2021-04-22] MEDS ORDERED: PANTOprazole 80 MG in DEXTROSE 5% 100 ML IV ONE (19:27)
[2021-04-22] MEDS ORDERED: PANTOPRAZOLE BOLUS/DRIP 1 EA IV STA (19:27)
[2021-04-22] MEDS ORDERED: PANTOprazole 40 MG in DEXTROSE 5% 100 ML IV SCH (19:45)
[2021-04-22 19:48] LABS: Appearance Urine Cloudy (Clear); Bacteria Urine Automated Negative (Negative); Bilirubin Urine Negative (Negative); Blood Urine Negative (Negative); Color Urine Yellow; Glucose Urine UA Negative (Negative); Ketones Urine Negative (Negative); Leukocyte Esterase Urine Negative (Negative); Nitrite Urine Negative (Negative); Protein Urine Negative (Negative); RBC Urine Automated 0-4 /hpf (0-4); Specific Gravity Urine 1.019 (1.000-1.030); Urobilinogen Urine Negative (Negative)
[2021-04-22 19:59] LABS: Amorphous Sediment Urine Present (None Prsent); Calcium Oxalate Crystals Urine Present (None Prsent)
--- NOTE | 2021-04-22 21:30 | History & Physical Report ---
Date of Service April 22, 2021 Assessment & Plan (1) Low back pain: Plan: Mr. Mendez is a 75 yo M with a complex PMHx who presented for evaluation of ongoing R low back pain. - etiology: suspect mechanical given that discomfort started after tripping in yard and paraspinal muscle tenderness on exam. - No red flag signs - Lack of radicular symptoms makes me less suspicious of spinal nerve impingement, will defer advanced imaging at this time. - Kidney stones already passed to bladder - nephrolithiasis unlikely. - CT abdomen showing no other acute findings aside from constipation (see below) - tylenol prn. lidoderm patch and voltaren gel, and K pad ordered (2) Guaiac positive stools: Plan: - etiology uncertain: upper verus lower GI tract bleed. - elevated BUN would favor the former, yet patient denies UGI symptoms -protonix ggt discontinued, I will use protonix 40mg IV BID instead - patient has never had a colonoscopy - family history of colon cancer in first degree relative - associated B symptoms (unintentional weight loss, night seats) concerning for possible malignancy - elevated alk phos could suggest bony metastasis, although the degree of elevation is not exceedingly high - patient needs to undergo a colonoscopy and possibly upper endoscopy - GI consulted, they can decided if this should be done while inpatient or priority as outpatient (3) Constipation: Plan: - moderate stool burden noted on CT of abdomen - enema given in ED - scheduled miralax 1 capfull daily - may receive bowel prep if GI decided to do colonoscopy inhouse (4) Yeast UTI: Plan: - yeast noted on UA from 04/21/21 - burning upon urination reported by patient - will treat with diflucan 200mg daily for 14 days (5) Anticoagulated on warfarin: Plan: - due to hx of DVT and mechanical aortic valve - hold until GI sees patient (in the event of a colonoscopy); if no procedure will be done while inpatient, may resume (although he may need a heparin bridge until theraputic) - recheck INR daily (6) Lower extremity edema: Plan: - etiology uncertain: patient has history of both venous insufficiency and 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 (noted on Echo from 04/2020) - continue home dose lasix 20mg - compression stockings (7) CAD (coronary artery disease): Plan: - hx CAGB - Severe atherosclerotic calcifications are seen of the heart on CT of abdomen - continue ASA - unclear why patient is not on a high intensity statin, beta merline or GREGORY/ARB (8) Diabetes type 1, uncontrolled: Plan: - a1c above goal at 9.5 in 12/2020 - repeat a1c - lantus 13 units qhs + SSI (home Tresiba converted to lanuts) - consider transitoning to Nph insulin while on prednisone for COPD flare based on blood sugars - not on a high intensity statin, reason unclear, consider adding - carb consistent diet when on longer NPO (9) Kidney stones: Plan: - noted on recent imaging in bladder, 1 non-obstructing left sided stone - appear to be calcium oxalate in origin based on UA - discuss low Na diet and hydration with patient for prevention (10) COPD (chronic obstructive pulmonary disease): Plan: - he is currently being treated for an acute exacerbation by outpatient provider - continue home inhalers (Symbicort, Incurse Ellipta and Albuterol) - continue Augmetin, Zpak and prednisone - continue mucinex - baseline oxygen requirement of 2L via NC (11) Anemia: Plan: - Hgb 11.3, down from 13.4 on 04/21/21 - MCV 99, normocytic - guiac positive stool concerning for possible GI bleed - GI consult as above - trend H+H --> if hgb continues to drop at subsequent checks, recommend patient be moved to telemetry (12) Thrombocytopenia: Plan: - platelets at 121 k/Ul - chronic finding (13) Compression fracture: Plan: - thoracic - continue intranasal calcitonin DVT ppx: INR theraputic on coumadin Diet: NPO in case of possible endoscopy Dispo:Med/Surg Code: DNR,DNI, I discussed with patient History of Present Illness Primary Care Provider: Rajeev Alicea DO Mr. Mendez is a 75 yo gentleman with a complex PMHx who presented to the [facility] ED for evaluation of ongoing right low back pain. Of note, he was seen in the ED yesterday, at which time multiple stones were shown in the bladder on cat scan -his pain was attributed to recently passed kidney stones and he was sent home. However, the pain recurred. He rates it to be a 9/10 in severity; worsened with ambulation. It occasionally radiates to the groin, but never to the buttock or down the leg. He denies any associated leg weakness or numbness. Prior to the onset of the pain, he tripped and fell over tree roots in the ground (this occurred about 1 week ago). + ROS is positive for unintentional weight loss fo 10 pounds in the past month and night sweats. +burning with urination. + constipation. No fevers/chills. No CP or SOB. No cough. No nausea/vomiting or diarrhea. No fecal or urinary incontinence Social Hx: Former cigarette smoker, quit > 30 years ago; smokes a pipe everyday. No etoh. Family Hx: Sister of colon cancer at age 56. Three other sisters each had breast cancer. He has never had a colonoscopy. In the ED, he was afebrile with normal vitals. His WBC was normal. His Hgb was 11.3, down from 13.4 on 04/21/21. His stool was guiac positive. His platelets were low at 121 k/ul. INR was 2.4. His BMP was normal; ALT and AST drawn 04/21/21 were WNL, however alk phos was elevated to 159. His lipase was not elevated. UA from 04/21/21 showed yeast. UA from today showed calcium oxalate crystals. COVID 19 neg. KUB showed moderate stool burden, cholelithiasis. CXR from 04/21/21 showed no active disease. A/P cat scan from 04/21/21 showed multiple stones in the bladder, evidence of stool retention. Lumbar spine radiograph from 04/21/21 showed degenerative changes of the spine. He was started on a protonix drip with bolus, given toradol 10mg IV, a milk and molasses enema and Diflucan in the ED. He did pass a BM after the enema. Allergies Allergy/AdvReac Type Severity Reaction Status Date / Time clonazepam AdvReac Severe SEE COMMENT Verified 04/22/21 16:38 latex AdvReac Intermediate Rash Verified 04/22/21 16:38 propoxyphene AdvReac Intermediate panic Verified 04/22/21 16:38 [From Jaclyn] attack Home Medications Medication Instructions Recorded Confirmed Type aspirin 81 mg tablet,delayed 81 mg PO QAM 02/10/20 04/22/21 History release (Adult Low Dose Aspirin) Dexcom G6 Contact Person (blood-glucose #1 ea NS 02/23/20 04/22/21 Rx meter,continuous) Dexcom G6 Sensor (blood-glucose #3 ea NS 02/23/20 04/22/21 Rx sensor) Dexcom G6 Transmitter #1 ea NS 02/23/20 04/22/21 Rx (blood-glucose transmitter) insulin degludec 100 unit/mL (3 13 unit SQ HS 10/05/20 04/22/21 History mL) subcutaneous pen (Tresiba FlexTouch U-100 insulin) duloxetine 60 mg capsule,delayed 60 mg PO QAM 11/05/20 04/22/21 History release (Cymbalta) Oxygen Home #1 ea 11/13/20 04/22/21 Rx blood sugar diagnostic (OneTouch #100 ea 11/14/20 04/22/21 Rx Ultra Blue Test Strip) budesonide 160 mcg-glycopyr 9 2 inh INHALATION BID #10.7 g 11/30/20 04/22/21 Rx mcg-formot 4.8 mcg/actuation HFA inhaler (Breztri Aerosphere) topiramate 100 mg tablet (Topamax) 100 mg PO BID 12/30/20 04/22/21 History insulin syringe-needle U-100 0.3 #100 ea 01/03/21 04/22/21 Rx mL 31 gauge x 5/16" (BD Insulin Syringe Ultra-Fine) albuterol sulfate 90 mcg/actuation 2 puff INH Q6H PRN #1 inhaler 02/04/21 04/22/21 Rx aerosol inhaler (ProAir HFA) albuterol sulfate 2.5 mg INHALATION QID 02/26/21 04/22/21 History fexofenadine 180 mg tablet 180 mg PO QAM 02/26/21 04/22/21 History (Flora Allergy) guaifenesin 1,200 mg tablet, 1,200 mg PO BID 02/26/21 04/22/21 History extended release 12 hr (Mucinex) insulin NPH isoph U-100 human 100 12 unit SC DAILY PRN 02/26/21 04/22/21 History unit/mL subcutaneous suspension (Novolin N NPH U-100 Insulin isophane) insulin lispro 100 unit/mL 1 sliding scale dose SUBCUT TIDM 02/26/21 04/22/21 History subcutaneous solution (Humalog U-100 Insulin) warfarin 4 mg tablet (Jantoven) See Rx Instructions .ROUTE .COMPLEX 02/26/21 04/22/21 History pregabalin 200 mg capsule (Lyrica) 200 mg PO TID #90 cap 03/01/21 04/22/21 Rx calcitonin (salmon) 200 1 spray INTRANASAL (ALT) QAM 03/03/21 04/22/21 History unit/actuation nasal spray lorazepam 0.5 mg tablet (Ativan) 0.5 mg PO Q6H PRN 03/03/21 04/22/21 History sodium chloride 7 % for 4 ml INHALATION BID 03/03/21 04/22/21 History nebulization (Pulmosal) lidocaine 5 % topical patch 1 patch TOP DAILY PRN #30 ea 03/15/21 04/22/21 Rx (Lidoderm) terbinafine HCl 250 mg tablet 250 mg PO DAILY #30 tab 03/28/21 04/22/21 Rx azithromycin 250 mg tablet 250 mg PO DAILY tab 04/10/21 04/22/21 History (Zithromax) amoxicillin 875 mg-potassium 1 tab PO Q12H #20 tab 04/16/21 04/22/21 Rx clavulanate 125 mg tablet (Augmentin) furosemide 20 mg tablet 20 mg PO DAILY #30 tab 04/16/21 04/22/21 Rx prednisone 10 mg tablet 40 mg PO DAILY tab 04/16/21 04/22/21 History acetaminophen 500 mg tablet 500 mg PO TID PRN 04/22/21 04/22/21 History oxycodone 5 mg tablet 5 mg PO DIRECTED PRN 04/22/21 04/22/21 History Past Med/Surg History Medical History Abnormal weight loss Aortic stenosis Ascending aortic aneurysm Bicuspid aortic valve CAD (coronary artery disease) Chronic respiratory failure with hypoxia Chronic respiratory failure with hypoxia, on home oxygen therapy COPD (chronic obstructive pulmonary disease) Diabetes type 1, uncontrolled Diabetic peripheral neuropathy associated with type 1 diabetes mellitus Dysesthesia Dyslipidemia Fungal skin infection Hypertension 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 Multifocal pneumonia Smoking Squamous cell carcinoma of right ear Venous insufficiency Surgical History H/O bilateral cataract extraction H/O mechanical aortic valve replacement History of hernia repair 2007 S/P ascending aortic aneurysm repair S/P AVR (aortic valve replacement) S/P CABG x 1 Family History Sister Breast cancer 3 sisters Colorectal cancer Brother COPD (chronic obstructive pulmonary disease) half brother Prostate cancer half brother Father Heart disease Myocardial infarction Daughter Diabetes Other No family history of adverse response to anesthesia No family history of bleeding disorder Denies family history of Ovarian cancer Lung cancer Social History Smoking Status: Current every day smoker Tobacco Type: Cigarettes Age Started Using Tobacco: 20; Cigarettes Per Day: pipe 8 to 10 times a day; Second Hand Exposure: No; Hx Alcohol Use: No Hx Substance Use: No Preferred Language: Bulgarian Communication Ability: Effective Visual Impairment: Limited Hearing Ability: Normal Telecommunications Specialist Required: No Beliefs That Will Affect Care: None marital status: Current Living Situation: Spouse and Family Current Living Situation Comment: spouse and daughter in [place] current occupational status: retired current occupation: [employer] How many Children do You have: 1 Feels Safe at Home: Yes Childhood Exposure to Second-Hand Smoke: No caffeine: Yes (coffee) Dental Care, Regularly: No Physical Activity Frequency: 3-4 Times per Week Seatbelt Use: always Sunscreen Use: No Assistive Devices: Walker Review of Systems Review of Systems: All systems reviewed & are unremarkable except as noted in HPI & below Physical Exam Constitutional: + cachectic and cooperative; no acute distress Eyes: PERRL, conjunctivae normal, anicteric sclerae ENMT: external ear and nose normal, oropharynx normal Neck: trachea midline Respiratory: normal respiratory effort; no labored breathing Auscultation: + rhonchi (diffusely); no crackles and no wheezes Cardiovascular: Rate/Rhythm: regular rate and regular rhythm Heart Sounds: normal S1 and normal S2 Extremities: + pedal edema (+1 b/l) Gastrointestinal (Abdomen): normal bowel sounds, soft, nontender, no hepatosplenomegaly No CVA tenderness n/l. Musculoskeletal: Head/Neck/Chest: normocephalic and head atraumatic Spine: no lumbar spinal tenderness and straight leg raise negative bilaterally + paraspinal muscle tenderness of R lumbar region Skin: no rashes, warm and dry Neurologic: moves all extremities; no focal motor deficits Motor/Sensory: no sensory deficit Psychiatric: A+Ox3, euthymic affect Results & Data Results & Data ([facility]) Vital Signs (Past 12 Hours) Vital Signs Temp Pulse Pulse Resp BP BP Pulse Ox 04/22/21 20:26 80 26 H 146/86 H 100 04/22/21 19:18 88 20 148/76 H 100 04/22/21 17:06 81 20 131/63 100 04/22/21 14:37 36.3 C L 91 H 18 112/61 92 Code Status & VTE Plan VTE Prophylaxis Plan VTE Prophylaxis will be ordered: No Supervising Physician Co-Signing Physician Notes Attending addendum: I have physically seen this patient, have supervised the medical residents activities, and agree with the H&P unless as otherwise noted. Assessment and Plan: GI bleed- Hold Coumadin Serial Hemoccults H&H every 6 hours N.p.o. Protonix IV Significant weight loss and night sweats, with no history of previous colonoscopy, will at some point need scoped Consult gastroenterology Low back pain- With paraspinal muscle tenderness, and no abnormalities on CT, likely is musculoskeletal, will treat symptomatically Constipation- Moderate stool burden noted on CT of abdomen, status post enema in ED, May have an element of stercoral colitis Yeast UTI- Follow sensitivities Empiric Diflucan for now Remaining orders and notations as noted Resident Activity Tracking Resident Involvement: Resident Care Provided Care Provided: Adult Hospital Medicine (1) Low back pain Back pain laterality: right Chronicity: acute Sciatica presence: without sciatica Qualified Code(s): M54.50 - Low back pain, unspecified (2) COPD (chronic obstructive pulmonary disease) COPD type: COPD with acute exacerbation Qualified Code(s): J44.1 - Chronic obstructive pulmonary disease with (acute) exacerbation (3) Constipation Constipation type: unspecified constipation type Qualified Code(s): K59.00 - Constipation, unspecified
[2021-04-22] MEDS ORDERED: GLUCOSE 10 TABS/TUBE PO PRN (23:48)
[2021-04-22] MEDS ORDERED: CARBOHYDRATES FOR HYPOGLYCEMIA PO PRN (23:48)
[2021-04-22] MEDS ORDERED: DEXTROSE 50% 50 ML SYRINGE IV PRN (23:48)
[2021-04-22] MEDS ORDERED: MAGNESIUM HYDROXIDE SUSP 30 ML UDC PO PRN (23:48)
[2021-04-22] MEDS ORDERED: GLUCAGON FOR INJ 1 MG VIAL SQ PRN (23:48)
[2021-04-22] MEDS ORDERED: ONDANSETRON INJ 2 MG/ML 2 ML VIAL IV PRN (23:48)
[2021-04-22] MEDS ORDERED: GLUCOSE 40% GEL 15 GM TUBE PO PRN (23:48)
[2021-04-23 00:46] LABS: Hematocrit (blood only) 33.4 % (42-52); Hemoglobin 10.7 g/dL (14.0-18.0)
[2021-04-23] MEDS ORDERED: ACETAMINOPHEN 500 MG TAB PO PRN (00:55)
[2021-04-23] MEDS: POLYETHYLENE (MIRALAX) 17 GM PACK PO SCH ×2 (01:40→10:39)
[2021-04-23] MEDS ORDERED: INSULIN GLARGINE SOLOSTAR 100 UNITS/ML 3 ML PEN SQ SCH ×3 (04:00→23:00)
[2021-04-23 05:07] LABS: Estimated Average Glucose 197 mg/dl; Hemoglobin A1C 8.5 % (4.5-5.6)
[2021-04-23] MEDS ORDERED: INSULIN ASPART 100 UNITS/ML 3 ML PEN SC SCH (06:00)
[2021-04-23] MEDS: ALBUTEROL 0.083% NEBU SOLN 3 ML VIAL INH SCH ×4 (07:24→20:10)
[2021-04-23 07:40] LABS: Hematocrit (blood only) 31.4 % (42-52); Hemoglobin 10.1 g/dL (14.0-18.0); Mean Corpuscular Hemoglobin 30.9 pg (25-34); Mean Corpuscular Hgb Conc 32.2 g/dL (32-36); Platelet Count 105 K/uL (130-400); RDW Coefficient of Variation 14.4 % (11.5-14.5); RDW Standard Deviation 50.6 fL (36.4-46.3); Red Blood Count 3.27 M/uL (4.7-6.1); White Blood Count 5.83 K/uL (4.8-10.8)
[2021-04-23 07:42] LABS: Prothrombin Time 19.4 Seconds (9.0-12.0)
[2021-04-23] MEDS ORDERED: SODIUM CHLORIDE 0.9% 500 ML IV SCH (08:00)
[2021-04-23] MEDS ORDERED: PHARMACY GLYCEMIC MGMT CONSULT PRN (08:12)
[2021-04-23 08:17] LABS: Eosinophils # (auto) 0.05 K/uL (0-0.5); Eosinophils % (auto) 0.9 %; Immature Granulocytes # (auto) 0.02 K/uL (0.00-0.02); Immature Granulocytes % (auto) 0.3 %; Lymphocytes # (auto) 0.47 K/uL (1.2-3.4); Lymphocytes % (auto) 8.1 %; Monocytes # (auto) 0.26 K/uL (0.11-0.59); Monocytes % (auto) 4.5 %; Neutrophils # (auto) 5.03 K/uL (1.4-6.5); Neutrophils % (auto) 86.2 %
--- NOTE | 2021-04-23 08:30 | Anesthesiology Consultation ---
Date of Service April 23, 2021 Assessment & Plan (1) Encounter for pre-operative examination: Chart Review Chart Review: Acceptable Risk for Surgery and Patient NOT seen in Pre Admission Testing Consults Requested none History Surgery Operation Date: 04/23/21 16:15 Proposed Procedures p Esophagogastroduodenoscopy Dr Daniel Sanchez, DO Height/Weight Height: 5 ft 11 in Weight: 54.7 kg Allergies Allergy/AdvReac Type Severity Reaction Status Date / Time clonazepam AdvReac Severe SEE COMMENT Verified 04/22/21 16:38 latex AdvReac Intermediate Rash Verified 04/22/21 16:38 propoxyphene AdvReac Intermediate panic Verified 04/22/21 16:38 [From TiffanieJanice] attack Medications Home Medications Medication Instructions Recorded Confirmed Last Taken aspirin 81 mg tablet,delayed 81 mg PO QAM 02/10/20 04/22/21 04/22/21 release (Adult Low Dose Aspirin) Dexcom G6 Senior Cytotechnologist (blood-glucose #1 ea NS 02/23/20 04/22/21 Unknown meter,continuous) Dexcom G6 Sensor (blood-glucose #3 ea NS 02/23/20 04/22/21 Unknown sensor) Dexcom G6 Transmitter #1 ea NS 02/23/20 04/22/21 Unknown (blood-glucose transmitter) insulin degludec 100 unit/mL (3 13 unit SQ HS 10/05/20 04/22/21 03/02/21 mL) subcutaneous pen (Tresiba FlexTouch U-100 insulin) duloxetine 60 mg capsule,delayed 60 mg PO QAM 11/05/20 04/22/21 04/22/21 release (Cymbalta) Oxygen Home #1 ea 11/13/20 04/22/21 Unknown blood sugar diagnostic (OneTouch #100 ea 11/14/20 04/22/21 Unknown Ultra Blue Test Strip) budesonide 160 mcg-glycopyr 9 2 inh INHALATION BID #10.7 g 11/30/20 04/22/21 04/21/21 mcg-formot 4.8 mcg/actuation HFA inhaler (Breztri Aerosphere) topiramate 100 mg tablet (Topamax) 100 mg PO BID 12/30/20 04/22/21 04/22/21 insulin syringe-needle U-100 0.3 #100 ea 01/03/21 04/22/21 Unknown mL 31 gauge x 5/16" (BD Insulin Syringe Ultra-Fine) albuterol sulfate 90 mcg/actuation 2 puff INH Q6H PRN #1 inhaler 02/04/21 04/22/21 03/03/21 aerosol inhaler (ProAir HFA) albuterol sulfate 2.5 mg INHALATION QID 02/26/21 04/22/21 04/22/21 fexofenadine 180 mg tablet 180 mg PO QAM 02/26/21 04/22/21 04/22/21 (Flora Allergy) guaifenesin 1,200 mg tablet, 1,200 mg PO BID 02/26/21 04/22/21 04/22/21 extended release 12 hr (Mucinex) insulin NPH isoph U-100 human 100 12 unit SC DAILY PRN 02/26/21 04/22/21 Unknown unit/mL subcutaneous suspension (Novolin N NPH U-100 Insulin isophane) insulin lispro 100 unit/mL 1 sliding scale dose SUBCUT TIDM 02/26/21 04/22/21 1 subcutaneous solution (Humalog U-100 Insulin) warfarin 4 mg tablet (Jantoven) See Rx Instructions .ROUTE .COMPLEX 02/26/21 04/22/21 04/22/21 pregabalin 200 mg capsule (Lyrica) 200 mg PO TID #90 cap 03/01/21 04/22/21 04/22/21 200 mg calcitonin (salmon) 200 1 spray INTRANASAL (ALT) QAM 03/03/21 04/22/21 04/22/21 unit/actuation nasal spray lorazepam 0.5 mg tablet (Ativan) 0.5 mg PO Q6H PRN 03/03/21 04/22/21 Unknown sodium chloride 7 % for 4 ml INHALATION BID 03/03/21 04/22/21 03/03/21 nebulization (Pulmosal) lidocaine 5 % topical patch 1 patch TOP DAILY PRN #30 ea 03/15/21 04/22/21 Unknown (Lidoderm) terbinafine HCl 250 mg tablet 250 mg PO DAILY #30 tab 03/28/21 04/22/21 04/22/21 azithromycin 250 mg tablet 250 mg PO DAILY tab 04/10/21 04/22/21 04/22/21 (Zithromax) amoxicillin 875 mg-potassium 1 tab PO Q12H #20 tab 04/16/21 04/22/21 04/22/21 clavulanate 125 mg tablet (Augmentin) furosemide 20 mg tablet 20 mg PO DAILY #30 tab 04/16/21 04/22/21 04/21/21 prednisone 10 mg tablet 40 mg PO DAILY tab 04/16/21 04/22/21 04/22/21 acetaminophen 500 mg tablet 500 mg PO TID PRN 04/22/21 04/22/21 04/22/21 oxycodone 5 mg tablet 5 mg PO DIRECTED PRN 04/22/21 04/22/21 04/22/21 Active Medications Generic Name Dose Route Start Last Admin Trade Name Mini PRN Reason Stop Dose Admin Albuterol 2.5 mg 04/23/21 07:00 04/23/21 07:24 Albuterol 0.083% Nebu Soln 3 Ml Vial INH 05/23/21 06:59 2.5 mg QIDR MARIANA Administration Insulin Aspart 0 units 04/23/21 06:00 04/23/21 06:08 Insulin Aspart 100 Units/Ml 3 Ml Pen SC 05/23/21 05:59 4 units Q6 MARIANA Administration Insulin Glargine 13 units 04/23/21 04:00 04/23/21 05:27 Insulin Glargine Solostar 100 Units/Ml 3 Ml Pen SQ 05/23/21 03:59 13 units HS MARIANA Administration Miscellaneous 1 ea 04/23/21 08:00 04/23/21 07:54 Breztri Aerosphere: Order Awaiting Action N/A 05/23/21 07:59 Not Given QS MARIANA Polyethylene Glycol 17 gm 04/22/21 23:48 04/23/21 01:40 Polyethylene (Miralax) 17 Gm Pack PO 05/22/21 23:47 17 gm DAILY MARIANA Administration NPO Date Last Intake of Fluids: 04/22/21 Time Last Intake of Fluids: 23:59 Date Last Intake of Solids: 04/22/21 Time Last Intake of Solids: 23:59 Past Medical History Medical History Abnormal weight loss Aortic stenosis Ascending aortic aneurysm Bicuspid aortic valve CAD (coronary artery disease) Chronic respiratory failure with hypoxia Chronic respiratory failure with hypoxia, on home oxygen therapy COPD (chronic obstructive pulmonary disease) Diabetes type 1, uncontrolled Diabetic peripheral neuropathy associated with type 1 diabetes mellitus Dysesthesia Dyslipidemia Fungal skin infection Hypertension 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 Multifocal pneumonia Smoking Squamous cell carcinoma of right ear Venous insufficiency Past Family History Family History Sister Breast cancer 3 sisters Colorectal cancer Brother COPD (chronic obstructive pulmonary disease) half brother Prostate cancer half brother Father Heart disease Myocardial infarction Daughter Diabetes Other No family history of adverse response to anesthesia No family history of bleeding disorder Denies family history of Ovarian cancer Lung cancer Past Surgical History Surgical History H/O bilateral cataract extraction H/O mechanical aortic valve replacement History of hernia repair 2007 S/P ascending aortic aneurysm repair S/P AVR (aortic valve replacement) S/P CABG x 1 Social History Smoking Status: Current every day smoker tobacco type: pipe Smoking cigarettes per day: pipe 8 to 10 times a day Do You Dip or Chew Tobacco: No Hx Alcohol Use: No Hx Substance Use: No substance use type: does not use Physical Exam Vital Signs Last Vital Signs Temp 98.1 F 04/23/21 07:33 Pulse 80 04/23/21 07:33 Resp 18 04/23/21 07:33 BP 105/58 L 04/23/21 07:33 Pulse Ox 94 04/23/21 07:33 Testing Laboratory Results 04/23/21 06:45 04/22/21 18:14 PT 19.4 Seconds (9.0-12.0) H 04/23/21 06:45 INR 2.0 (0.9-1.1) H 04/23/21 06:45 Hemoglobin A1c 8.5 % (4.5-5.6) H 04/22/21 18:14 Urine Color Yellow 04/22/21 19:18 Urine Appearance Cloudy (Clear) A 04/22/21 19:18 Urine pH 7.0 (4.5-7.5) 04/22/21 19:18 Ur Specific [place] 1.019 (1.000-1.030) 04/22/21 19:18 Urine Protein Negative (Negative) 04/22/21 19:18 Urine Glucose (UA) Negative (Negative) 04/22/21 19:18 Urine Ketones Negative (Negative) 04/22/21 19:18 Urine Nitrite Negative (Negative) 04/22/21 19:18 Ur Leukocyte Esterase Negative (Negative) 04/22/21 19:18 Urine WBC (Auto) 1-5 /hpf (0-5) 04/22/21 19:18 Urine RBC (Auto) 0-4 /hpf (0-4) 04/22/21 19:18 U Hyaline Cast (Auto) 1-5 /lpf (0-5) 04/22/21 19:18 U Epithel Cells (Auto) 10-20 /lpf (0-5) H 04/22/21 19:18 Urine Bacteria (Auto) Negative (Negative) 04/22/21 19:18 04/23/21 04/23/21 04/23/21 08:05 05:13 05:11 POC Glucose 317 H* 358 H* 334 H* Electrocardiogram Date: 04/21/21 Normal sinus rhythm Septal infarct , age undetermined Chest X-Ray Date: 04/21/21 Findings: + NAD Echocardiogram Date: 05/08/20 EF: 55-60 LV Function: normal prosthetic aortic valve, mild pulmonary hypertension
[2021-04-23] MEDS ORDERED: LORazepam 0.5 MG TAB PO PRN (09:42)
[2021-04-23] MEDS ORDERED: Nursing to Pharmacy Communication SCH (09:45)
[2021-04-23] MEDS: PANTOprazole 40 MG in SYRINGE 0 ML IV SCH ×2 (10:36→21:32)
[2021-04-23] MEDS: PREGABALIN 100 MG CAP PO SCH ×3 (10:36→20:55)
[2021-04-23] MEDS: FLUCONAZOLE 100 MG TAB PO SCH (10:36)
[2021-04-23] MEDS: TOPIRAMATE 100 MG TAB PO SCH ×2 (10:37→20:56)
[2021-04-23] MEDS: DULoxetine HCL 60 MG CAP PO SCH (10:37)
[2021-04-23] MEDS: guaiFENesin 600 MG TABCR PO SCH ×2 (10:37→20:53)
[2021-04-23] MEDS: FEXOFENADINE HCL 180 MG TAB PO SCH (10:37)
[2021-04-23] MEDS: LIDOCAINE 5% 1 PATCH TD SCH (10:37)
[2021-04-23] MEDS: FUROSEMIDE 20 MG TAB PO SCH (10:37)
[2021-04-23] MEDS: ASPIRIN 81 MG ECTAB PO SCH (10:37)
[2021-04-23] MEDS: CALCITONIN SALMON NA 200 IU/AC 3.7 ML BTL SCH (10:38)
[2021-04-23] MEDS: DICLOFENAC SOD 1% GEL 100 GM TUBE EXT SCH ×4 (10:38→20:53)
[2021-04-23] MEDS: AMOXICILLIN/CLAVULANATE 875 MG TAB PO SCH ×2 (10:39→17:52)
[2021-04-23] MEDS: predniSONE 20 MG TAB PO SCH (10:39)
[2021-04-23] MEDS: AZITHROMYCIN 250 MG TAB PO SCH (10:39)
[2021-04-23] MEDS: FLUTICASONE/VILANTEROL 100/25MCG 14 PUFFS/INHALER INH SCH (10:39)
[2021-04-23] MEDS: UMECLIDINIUM BROMIDE 62.5MCG/BLISTER 7 PUFFS/INHALER INH SCH (10:40)
--- NOTE | 2021-04-23 11:36 | Hospitalist Progress Note ---
Date of Service April 23, 2021 Assessment & Plan (1) Low back pain: Plan: Mr. Mendez is a 75 yo M with a complex PMHx who presented for evaluation of ongoing R low back pain. Low back pain: - etiology: suspect mechanical given that discomfort started after tripping in yard and paraspinal muscle tenderness on exam. - No red flag signs - Lack of radicular symptoms makes me less suspicious of spinal nerve impingement, will defer advanced imaging at this time. - Kidney stones already passed to bladder - nephrolithiasis unlikely. - CT abdomen showing no other acute findings aside from constipation (see below) - tylenol prn. lidoderm patch and voltaren gel, and K pad Guaiac positive stools: - etiology uncertain: upper verus lower GI tract bleed. - elevated BUN would favor the former, yet patient denies UGI symptoms -protonix ggt discontinued, I will use protonix 40mg IV BID instead - patient has never had a colonoscopy - family history of colon cancer in first degree relative - associated B symptoms (unintentional weight loss, night seats) concerning for possible malignancy - elevated alk phos could suggest bony metastasis, although the degree of elevation is not exceedingly high - GI consulted: - Will arrange for this pt an outpt EGD/colonoscopy to investigate his anemia and c/o weight loss - Can check a GGT given his elevated ALP - Pt would benefit from a bowel regimen of a daily stool softener and Miralax given his constipation Anemia: - Hgb 11.3, down from 13.4 on 04/21/21 - MCV 99, normocytic - guiac positive stool concerning for possible GI bleed - GI consult as above - trend H+H Constipation: - moderate stool burden noted on CT of abdomen - enema given in ED - scheduled miralax 1 capful daily -Docusate daily - See Gi recs above Yeast UTI: - yeast noted on UA from 04/21/21 - burning upon urination reported by patient - will treat with diflucan 200mg daily for 14 days Anticoagulated on warfarin: - due to hx of DVT and mechanical aortic valve - Hold warfarin for now in the setting of acute anemia consider restarting once anemia because clear or stabilized - recheck INR daily Lower extremity edema: - etiology uncertain: patient has history of both venous insufficiency and 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 (noted on Echo from 04/2020) - continue home dose lasix 20mg - compression stockings CAD (coronary artery disease): - hx CAGB - Severe atherosclerotic calcifications are seen of the heart on CT of abdomen - continue ASA - unclear why patient is not on a high intensity statin, beta merline or GREGORY/ARB Diabetes type 1, uncontrolled: - a1c above goal at 9.5 in 12/2020 - repeat a1c - SSI in hospital - not on a high intensity statin, reason unclear, consider adding - carb consistent diet when on longer NPO Kidney stones: - noted on recent imaging in bladder, 1 non-obstructing left sided stone - appear to be calcium oxalate in origin based on UA - discuss low Na diet and hydration with patient for prevention COPD (chronic obstructive pulmonary disease): - he is currently being treated for an acute exacerbation by outpatient provider - continue home inhalers (Symbicort, Incurse Ellipta and Albuterol) - continue Augmetin, Zpak and prednisone - continue mucinex - baseline oxygen requirement of 2L via NC Thrombocytopenia: - platelets at 121 k/Ul - chronic finding Compression fracture: - thoracic - continue intranasal calcitonin DVT ppx: INR theraputic on coumadin -- holding for now in the setting of acute anemia with unclear cause Diet: CC/DM2 Dispo:Med/Surg Code: DNR,DNI, (2) Guaiac positive stools: (3) Constipation: (4) Yeast UTI: (5) Anticoagulated on warfarin: (6) Lower extremity edema: (7) CAD (coronary artery disease): (8) Diabetes type 1, uncontrolled: (9) Kidney stones: (10) COPD (chronic obstructive pulmonary disease): (11) Anemia: (12) Thrombocytopenia: (13) Compression fracture: Admission and Anticipated Discharge Date Admission Date: April 22, 2021 Supervising Physician Co-Signing Physician Notes I personally examined the patient and verified all casillas points of history and exam, discussed case, and agree with decision making with Dr Mercado. Back pain is low, not CVA, does not really radiate to groin. Ongoing dysuria. Eating well without any problems. No overt GI bleeding. Vitals noted, in general he is awake and alert pleasant no distress. HEENT normocephalic atraumatic mucous membranes moist. Breathing unlabored no accessory muscle use good effort. Skin shows no rashes no pallor or icterus. Neuro without focal deficits. Musculoskeletal/osteopathic shows right-sided pelvic musculature in the region of piriformis to be high tone, tender, decreased range of motioninhibitory pressure/LAS done with improvement in tissue texture and painpatient tolerated well. Back paindespite the kidney stones, actually appears to be biomechanical. Voltaren gel to the area 4 times daily Somatic dysfunction pelvisOMT as above. Dysurialikely kidney stones plus or minus yeasttreat symptoms, and treat yeast given that he is relatively immune compromised with uncontrolled diabetes UTIDiflucan see above Anemiapossible GI bleedingbut does not appear to overtly to be suffering from any kind of a hemorrhage, so as long as this remains to be the case, it would likely be reasonable to have scopes done as an outpatient. Follow into tomorrow, follow his hemoglobinif he shows any truly overt bleeding, then we will need to move the scopes to more urgent. Anticoagulated on Coumadinwe will want to continue this given his mechanical valve and no overt hemorrhage. Otherwise as above Subjective Seen at bedside this morning. Patient was very angry that he had not been fed. We were able to converse shortly about his current symptoms before he became very confrontational about his diet. He denies any abdominal pain, chest pain, palpitations, shortness of breath, nausea, vomiting. He does mention that he has significant low back pain that radiates somewhat to his groin, otherwise no radicular symptoms. No other red flags. Review of Systems Review of Systems: per subjective Physical Exam Physical Exam: GENERAL: A&Ox3. NAD. CHEST/LUNGS: CTAB A/P. No crackles, wheezes, rales, rhonchi. HEART: RRR. No m/g/r. No carotid bruits. ABDOMEN: NT/ND, soft. BS+ x4 EXTREMITIES: No cyanosis, no clubbing, no edema SKIN: Warm and dry. No rashes or lesions. Results & Data Results & Data ([facility]) Vital Signs (Past 12 Hours) Vital Signs Temp Pulse Resp BP Pulse Ox 04/23/21 11:16 72 16 95 04/23/21 07:33 36.7 C 80 18 105/58 L 94 04/23/21 07:24 72 16 94 Resident Activity Tracking Resident Involvement: Resident Care Provided Care Provided: Adult Hospital Medicine (1) Low back pain Back pain laterality: right Chronicity: acute Sciatica presence: without sciatica Qualified Code(s): M54.50 - Low back pain, unspecified (2) COPD (chronic obstructive pulmonary disease) COPD type: COPD with acute exacerbation Qualified Code(s): J44.1 - Chronic obstructive pulmonary disease with (acute) exacerbation (3) Constipation Constipation type: unspecified constipation type Qualified Code(s): K59.00 - Constipation, unspecified
--- NOTE | 2021-04-23 12:06 | Gastrointestinal Consultation ---
Date of Consultation April 23, 2021 Assessment & Plan (1) Guaiac positive stools: (2) Anemia: This is a 75 y/o male with multiple co-morbidities, who came to the ER for ongoing R low back pain, and found to acute on chronic anemia (HGB 10, baseline 11-13), with a not significantly elevated BUN. GI asked to evaluate for guaiac positive stools, possible need for endoscopy. Abd is soft. Source of anemia is unclear at this time although he did recently have hematuria and passed kidney stones and does take anticoagulation. He has a strong fam hx colon CA and has never had endoscopy. At present he has no GI complaints and no obvious active GIB; had brown stool in the ER. - We will arrange for this pt an outpt EGD/colonoscopy to investigate his anemia and c/o weight loss - Will defer mgmt of his other co-morbidities to his primary team - Would trend H&H - Can check a GGT given his elevated ALP - Pt would benefit from a bowel regimen of a daily stool softener and Miralax given his constipation Thank you for allowing us to participate in the care of this patient. Please ca ll with any acute changes, questions or concerns. Please see addendum below with additional recommendation from my supervising physician. Supervising Physician Co-Signing Physician Notes I saw and evaluated the patient. He present with a history of back pain and was found to have heme + stool without melena, hematemesis or hematochezia. The patient does not recall a prior EGD / Colonoscopy or history of colon cancer in his family. The patient is a long-time smoker on home O2. PE Thin male / nad delay in expiratory phase abd: soft Patient with a historyof heme + stool and a mild anemia, would suggest OP evalaution with EGD and Colonoscopy in addtion to an Iron panel and Ferritin REcomendations: EGD / Colonoscopy to be scheduled please consider an iron panel / ferritin please call with any questions or concerns. History of Present Illness Reason for Consultation: guiac positive stool, needs colonoscopy Requesting Physician: Dr. Mary Reardon MD Attending Physician: Javier Donovan DO History of Present Illness Mr. Mendez is a 75 y/o male with complex PMHx CAD s/p CABG, mechanical aortic valve on anticoagulation, COPD, DM, HLD, HTN, and others who presented to the ER for ongoing right low back pain. Recently had passed kidney stones and was having hematuria. He notes this back pain worsens with ambulation. Labs notable for HGB 10.1, Crit 31.4%, tcytopenia plt 105 K, BUN 21 (baseline). ALP mildly elevated at 159 with normal transaminases. He has had an intermittent bu t slowly developing anemia since earlier in the year. He complains of constipation; was given an enema in the ER; he had a brown loose resulting stool. His stool was checked in the ER and was guiac positive. GI asked to evaluate for + guaiac stool and anemia, to consider endoscopy. He describes an unintentional weight loss of approx 10-15 lbs over the last few months along with night sweats. He states he has constipation at baseline; stool not changed significantly recently. COVID 19 neg. KUB showed moderate stool burden, cholelithiasis. CXR from 04/21/21 showed no active disease. CTAP from 04/21/21 showed multiple stones in the bladder, evidence of stool retention, constipation. Family Hx: Sister of colon cancer at age 56. He has never had an EGD or colonoscopy. Pt states stools at home are formed, no melena, hematochezia. Denies fevers/chills. No CP or SOB. No cough. No nausea/vomiting or diarrhea. Allergies Allergy/AdvReac Type Severity Reaction Status Date / Time clonazepam AdvReac Severe SEE COMMENT Verified 04/22/21 16:38 latex AdvReac Intermediate Rash Verified 04/22/21 16:38 propoxyphene AdvReac Intermediate panic Verified 04/22/21 16:38 [From TiffanieJanice] attack Home Medications Medication Instructions Recorded Confirmed Type aspirin 81 mg tablet,delayed 81 mg PO QAM 02/10/20 04/22/21 History release (Adult Low Dose Aspirin) Dexcom G6 Forensic Document Examiner (blood-glucose #1 ea NS 02/23/20 04/22/21 Rx meter,continuous) Dexcom G6 Sensor (blood-glucose #3 ea NS 02/23/20 04/22/21 Rx sensor) Dexcom G6 Transmitter #1 ea NS 02/23/20 04/22/21 Rx (blood-glucose transmitter) insulin degludec 100 unit/mL (3 13 unit SQ HS 10/05/20 04/22/21 History mL) subcutaneous pen (Tresiba FlexTouch U-100 insulin) duloxetine 60 mg capsule,delayed 60 mg PO QAM 11/05/20 04/22/21 History release (Cymbalta) Oxygen Home #1 ea 11/13/20 04/22/21 Rx blood sugar diagnostic (OneTouch #100 ea 11/14/20 04/22/21 Rx Ultra Blue Test Strip) budesonide 160 mcg-glycopyr 9 2 inh INHALATION BID #10.7 g 11/30/20 04/22/21 Rx mcg-formot 4.8 mcg/actuation HFA inhaler (Breztri Aerosphere) topiramate 100 mg tablet (Topamax) 100 mg PO BID 12/30/20 04/22/21 History insulin syringe-needle U-100 0.3 #100 ea 01/03/21 04/22/21 Rx mL 31 gauge x 5/16" (BD Insulin Syringe Ultra-Fine) albuterol sulfate 90 mcg/actuation 2 puff INH Q6H PRN #1 inhaler 02/04/21 04/22/21 Rx aerosol inhaler (ProAir HFA) albuterol sulfate 2.5 mg INHALATION QID 02/26/21 04/22/21 History fexofenadine 180 mg tablet 180 mg PO QAM 02/26/21 04/22/21 History (Flora Allergy) guaifenesin 1,200 mg tablet, 1,200 mg PO BID 02/26/21 04/22/21 History extended release 12 hr (Mucinex) insulin NPH isoph U-100 human 100 12 unit SC DAILY PRN 02/26/21 04/22/21 History unit/mL subcutaneous suspension (Novolin N NPH U-100 Insulin isophane) insulin lispro 100 unit/mL 1 sliding scale dose SUBCUT TIDM 02/26/21 04/22/21 History subcutaneous solution (Humalog U-100 Insulin) warfarin 4 mg tablet (Jantoven) See Rx Instructions .ROUTE .COMPLEX 02/26/21 04/22/21 History pregabalin 200 mg capsule (Lyrica) 200 mg PO TID #90 cap 03/01/21 04/22/21 Rx calcitonin (salmon) 200 1 spray INTRANASAL (ALT) QAM 03/03/21 04/22/21 History unit/actuation nasal spray lorazepam 0.5 mg tablet (Ativan) 0.5 mg PO Q6H PRN 03/03/21 04/22/21 History sodium chloride 7 % for 4 ml INHALATION BID 03/03/21 04/22/21 History nebulization (Pulmosal) lidocaine 5 % topical patch 1 patch TOP DAILY PRN #30 ea 03/15/21 04/22/21 Rx (Lidoderm) terbinafine HCl 250 mg tablet 250 mg PO DAILY #30 tab 03/28/21 04/22/21 Rx azithromycin 250 mg tablet 250 mg PO DAILY tab 04/10/21 04/22/21 History (Zithromax) amoxicillin 875 mg-potassium 1 tab PO Q12H #20 tab 04/16/21 04/22/21 Rx clavulanate 125 mg tablet (Augmentin) furosemide 20 mg tablet 20 mg PO DAILY #30 tab 04/16/21 04/22/21 Rx prednisone 10 mg tablet 40 mg PO DAILY tab 04/16/21 04/22/21 History acetaminophen 500 mg tablet 500 mg PO TID PRN 04/22/21 04/22/21 History oxycodone 5 mg tablet 5 mg PO DIRECTED PRN 04/22/21 04/22/21 History Patient History Medical History Abnormal weight loss Aortic stenosis Ascending aortic aneurysm Bicuspid aortic valve CAD (coronary artery disease) Chronic respiratory failure with hypoxia Chronic respiratory failure with hypoxia, on home oxygen therapy COPD (chronic obstructive pulmonary disease) Diabetes type 1, uncontrolled Diabetic peripheral neuropathy associated with type 1 diabetes mellitus Dysesthesia Dyslipidemia Fungal skin infection Hypertension 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 Multifocal pneumonia Smoking Squamous cell carcinoma of right ear Venous insufficiency Surgical History H/O bilateral cataract extraction H/O mechanical aortic valve replacement History of hernia repair 2007 S/P ascending aortic aneurysm repair S/P AVR (aortic valve replacement) S/P CABG x 1 Family History Sister Breast cancer 3 sisters Colorectal cancer Brother COPD (chronic obstructive pulmonary disease) half brother Prostate cancer half brother Father Heart disease Myocardial infarction Daughter Diabetes Other No family history of adverse response to anesthesia No family history of bleeding disorder Denies family history of Ovarian cancer Lung cancer Social History Smoking Status: Current every day smoker Tobacco Type: Cigarettes Age Started Using Tobacco: 20; Cigarettes Per Day: pipe 8 to 10 times a day; Second Hand Exposure: No; Do You Dip or Chew Tobacco: No; Tobacco Cessation Education Requested by Patient: No Hx Alcohol Use: No Hx Substance Use: No Preferred Language: [place] Communication Ability: Effective Visual Impairment: Limited Hearing Ability: Normal Film Editor Supervisor Required: No Beliefs That Will Affect Care: None marital status: Current Living Situation: Spouse and Family Current Living Situation Comment: spouse and daughter in [place] current occupational status: retired current occupation: [employer] How many Children do You have: 1 Other Information That Helps Us Care for You: No Feels Safe at Home: Yes Safety Concerns: Feels Safe At This Time Childhood Exposure to Second-Hand Smoke: No caffeine: Yes (coffee) Dental Care, Regularly: No Physical Activity Frequency: 3-4 Times per Week Seatbelt Use: always Sunscreen Use: No Assistive Devices: Oxygen - Continuous and Walker Assistive Devices Comment: 2L oxygen at home chronic. Review of Systems Review of Systems: All systems reviewed & are unremarkable except as noted in Subjective Physical Exam Constitutional: WD/WN, vitals as above chronically but not acutely ill Eyes: PERRL, conjunctivae normal, anicteric sclerae Respiratory: scattered rhonchi Cardiovascular: Rate/Rhythm: regular rate and regular rhythm Extremities: no edema +soft systolic murmur Gastrointestinal (Abdomen): normal bowel sounds, soft, nontender, no hepatosplenomegaly Skin: no rashes, warm and dry Psychiatric: A+Ox3, euthymic affect Affect: + irritable affect Results & Data ([facility] [place]) Vital Signs (Past 12 Hours) Vital Signs Temp Pulse Resp BP Pulse Ox 04/23/21 11:16 72 16 95 04/23/21 07:33 36.7 C 80 18 105/58 L 94 04/23/21 07:24 72 16 94 Laboratory Results 04/23/21 04/23/21 04/23/21 Range/Units 09:16 08:05 06:45 WBC (4.8-10.8) K/uL RBC (4.7-6.1) M/uL Hgb (14.0-18.0) g/dL Hct (42-52) % MCV (80-100) fL MCH (25-34) pg MCHC (32-36) g/dL RDW Std Deviation (36.4-46.3) fL RDW Coeff of Randolph (11.5-14.5) % Plt Count (130-400) K/uL MPV (7.4-10.4) fL Immature Gran % (Auto) % Neut % (Auto) % Lymph % (Auto) % [place] % (Auto) % Eos % (Auto) % Baso % (Auto) % Neut # (Auto) (1.4-6.5) K/uL Lymph # (Auto) (1.2-3.4) K/uL [place] # (Auto) (0.11-0.59) K/uL Eos # (Auto) (0-0.5) K/uL Baso # (Auto) (0-0.2) K/uL Immature Gran # (Auto) (0.00-0.02) K/uL Platelet Estimate (Normal) Poikilocytosis PT 19.4 H (9.0-12.0) Seconds INR 2.0 H (0.9-1.1) Sodium (136-145) mmol/L Potassium (3.5-5.1) mmol/L Chloride (98-107) mmol/L Carbon Dioxide (21-32) mmol/L Anion Gap (3-11) BUN (7-18) mg/dl Creatinine (0.6-1.4) mg/dl Est Cr Clr Drug Dosing ml/min Est GFR ( Amer) ml/min Est GFR (Non-Af Amer) ml/min BUN/Creatinine Ratio (10-20) Glucose (70-99) mg/dl POC Glucose 270 H 317 H* (70-99) mg/dl Estimat Average Glucose mg/dl Hemoglobin A1c (4.5-5.6) % Calcium (8.5-10.1) mg/dl Urine Color Urine Appearance (Clear) Urine pH (4.5-7.5) Ur Specific [place] (1.000-1.030) Urine Protein (Negative) Urine Glucose (UA) (Negative) Urine Ketones (Negative) Urine Blood (Negative) Urine Nitrite (Negative) Urine Bilirubin (Negative) Urine Urobilinogen (Negative) Ur Leukocyte Esterase (Negative) Urine WBC (Auto) (0-5) /hpf Urine RBC (Auto) (0-4) /hpf U Hyaline Cast (Auto) (0-5) /lpf U Epithel Cells (Auto) (0-5) /lpf Urine Bacteria (Auto) (Negative) Urine Crystals Calcium Oxalate Crystal (None Prsent) Amorphous Sediment (None Prsent) COVID-19 Eval Order SARS-CoV-2 (PCR) (Negative) 04/23/21 04/23/21 04/23/21 Range/Units 06:45 05:13 05:11 WBC 5.83 (4.8-10.8) K/uL RBC 3.27 L (4.7-6.1) M/uL Hgb 10.1 L (14.0-18.0) g/dL Hct 31.4 L (42-52) % MCV 96.0 (80-100) fL MCH 30.9 (25-34) pg MCHC 32.2 (32-36) g/dL RDW Std Deviation 50.6 H (36.4-46.3) fL RDW Coeff of Randolph 14.4 (11.5-14.5) % Plt Count 105 L (130-400) K/uL MPV 13.0 H (7.4-10.4) fL Immature Gran % (Auto) 0.3 % Neut % (Auto) 86.2 % Lymph % (Auto) 8.1 % Fannin % (Auto) 4.5 % Eos % (Auto) 0.9 % Baso % (Auto) 0.0 % Neut # (Auto) 5.03 (1.4-6.5) K/uL Lymph # (Auto) 0.47 L (1.2-3.4) K/uL Fannin # (Auto) 0.26 (0.11-0.59) K/uL Eos # (Auto) 0.05 (0-0.5) K/uL Baso # (Auto) 0.00 (0-0.2) K/uL Immature Gran # (Auto) 0.02 (0.00-0.02) K/uL Platelet Estimate (Normal) Poikilocytosis PT (9.0-12.0) Seconds INR (0.9-1.1) Sodium (136-145) mmol/L Potassium (3.5-5.1) mmol/L Chloride (98-107) mmol/L Carbon Dioxide (21-32) mmol/L Anion Gap (3-11) BUN (7-18) mg/dl Creatinine (0.6-1.4) mg/dl Est Cr Clr Drug Dosing ml/min Est GFR ( Amer) ml/min Est GFR (Non-Af Amer) ml/min BUN/Creatinine Ratio (10-20) Glucose (70-99) mg/dl POC Glucose 358 H* 334 H* (70-99) mg/dl Estimat Average Glucose mg/dl Hemoglobin A1c (4.5-5.6) % Calcium (8.5-10.1) mg/dl Urine Color Urine Appearance (Clear) Urine pH (4.5-7.5) Ur Specific [place] (1.000-1.030) Urine Protein (Negative) Urine Glucose (UA) (Negative) Urine Ketones (Negative) Urine Blood (Negative) Urine Nitrite (Negative) Urine Bilirubin (Negative) Urine Urobilinogen (Negative) Ur Leukocyte Esterase (Negative) Urine WBC (Auto) (0-5) /hpf Urine RBC (Auto) (0-4) /hpf U Hyaline Cast (Auto) (0-5) /lpf U Epithel Cells (Auto) (0-5) /lpf Urine Bacteria (Auto) (Negative) Urine Crystals Calcium Oxalate Crystal (None Prsent) Amorphous Sediment (None Prsent) COVID-19 Eval Order SARS-CoV-2 (PCR) (Negative) 04/23/21 04/22/21 04/22/21 Range/Units 00:19 19:55 19:55 WBC (4.8-10.8) K/uL RBC (4.7-6.1) M/uL Hgb 10.7 L (14.0-18.0) g/dL Hct 33.4 L (42-52) % MCV (80-100) fL MCH (25-34) pg MCHC (32-36) g/dL RDW Std Deviation (36.4-46.3) fL RDW Coeff of Randolph (11.5-14.5) % Plt Count (130-400) K/uL MPV (7.4-10.4) fL Immature Gran % (Auto) % Neut % (Auto) % Lymph % (Auto) % Fann[place] % (Auto) % Eos % (Auto) % Baso % (Auto) % Neut # (Auto) (1.4-6.5) K/uL Lymph # (Auto) (1.2-3.4) K/uL [place] # (Auto) (0.11-0.59) K/uL Eos # (Auto) (0-0.5) K/uL Baso # (Auto) (0-0.2) K/uL Immature Gran # (Auto) (0.00-0.02) K/uL Platelet Estimate (Normal) Poikilocytosis PT (9.0-12.0) Seconds INR (0.9-1.1) Sodium (136-145) mmol/L Potassium (3.5-5.1) mmol/L Chloride (98-107) mmol/L Carbon Dioxide (21-32) mmol/L Anion Gap (3-11) BUN (7-18) mg/dl Creatinine (0.6-1.4) mg/dl Est Cr Clr Drug Dosing ml/min Est GFR ( Amer) ml/min Est GFR (Non-Af Amer) ml/min BUN/Creatinine Ratio (10-20) Glucose (70-99) mg/dl POC Glucose (70-99) mg/dl Estimat Average Glucose mg/dl Hemoglobin A1c (4.5-5.6) % Calcium (8.5-10.1) mg/dl Urine Color Urine Appearance (Clear) Urine pH (4.5-7.5) Ur Specific [place] (1.000-1.030) Urine Protein (Negative) Urine Glucose (UA) (Negative) Urine Ketones (Negative) Urine Blood (Negative) Urine Nitrite (Negative) Urine Bilirubin (Negative) Urine Urobilinogen (Negative) Ur Leukocyte Esterase (Negative) Urine WBC (Auto) (0-5) /hpf Urine RBC (Auto) (0-4) /hpf U Hyaline Cast (Auto) (0-5) /lpf U Epithel Cells (Auto) (0-5) /lpf Urine Bacteria (Auto) (Negative) Urine Crystals Calcium Oxalate Crystal (None Prsent) Amorphous Sediment (None Prsent) COVID-19 Eval Order Covid19 at [facility] SARS-CoV-2 (PCR) NEGATIVE (Negative) 04/22/21 04/22/21 04/22/21 Range/Units 19:18 18:14 18:14 WBC (4.8-10.8) K/uL RBC (4.7-6.1) M/uL Hgb (14.0-18.0) g/dL Hct (42-52) % MCV (80-100) fL MCH (25-34) pg MCHC (32-36) g/dL RDW Std Deviation (36.4-46.3) fL RDW Coeff of Randolph (11.5-14.5) % Plt Count (130-400) K/uL MPV (7.4-10.4) fL Immature Gran % (Auto) % Neut % (Auto) % Lymph % (Auto) % [place] % (Auto) % Eos % (Auto) % Baso % (Auto) % Neut # (Auto) (1.4-6.5) K/uL Lymph # (Auto) (1.2-3.4) K/uL F[place] # (Auto) (0.11-0.59) K/uL Eos # (Auto) (0-0.5) K/uL Baso # (Auto) (0-0.2) K/uL Immature Gran # (Auto) (0.00-0.02) K/uL Platelet Estimate (Normal) Poikilocytosis PT (9.0-12.0) Seconds INR (0.9-1.1) Sodium 140 (136-145) mmol/L Potassium 4.4 D (3.5-5.1) mmol/L Chloride 107 (98-107) mmol/L Carbon Dioxide 32 (21-32) mmol/L Anion Gap 1.0 L (3-11) BUN 21 H (7-18) mg/dl Creatinine 0.78 (0.6-1.4) mg/dl Est Cr Clr Drug Dosing 56.3 ml/min Est GFR ( Amer) 103.8 ml/min Est GFR (Non-Af Amer) 89.6 ml/min BUN/Creatinine Ratio 27.1 H (10-20) Glucose 195 H (70-99) mg/dl POC Glucose (70-99) mg/dl Estimat Average Glucose 197 mg/dl Hemoglobin A1c 8.5 H (4.5-5.6) % Calcium 8.6 (8.5-10.1) mg/dl Urine Color Yellow Urine Appearance Cloudy A (Clear) Urine pH 7.0 (4.5-7.5) Ur Specific [place] 1.019 (1.000-1.030) Urine Protein Negative (Negative) Urine Glucose (UA) Negative (Negative) Urine Ketones Negative (Negative) Urine Blood Negative (Negative) Urine Nitrite Negative (Negative) Urine Bilirubin Negative (Negative) Urine Urobilinogen Negative (Negative) Ur Leukocyte Esterase Negative (Negative) Urine WBC (Auto) 1-5 (0-5) /hpf Urine RBC (Auto) 0-4 (0-4) /hpf U Hyaline Cast (Auto) 1-5 (0-5) /lpf U Epithel Cells (Auto) 10-20 H (0-5) /lpf Urine Bacteria (Auto) Negative (Negative) Urine Crystals Not Reportable Calcium Oxalate Crystal Present A (None Prsent) Amorphous Sediment Present A (None Prsent) COVID-19 Eval Order SARS-CoV-2 (PCR) (Negative) 04/22/21 04/22/21 Range/Units 18:14 18:14 WBC 5.07 (4.8-10.8) K/uL RBC 3.63 L (4.7-6.1) M/uL Hgb 11.3 L (14.0-18.0) g/dL Hct 36.0 L (42-52) % MCV 99.2 (80-100) fL MCH 31.1 (25-34) pg MCHC 31.4 L (32-36) g/dL RDW Std Deviation 53.1 H (36.4-46.3) fL RDW Coeff of Randolph 14.7 H (11.5-14.5) % Plt Count 121 L (130-400) K/uL MPV 12.9 H (7.4-10.4) fL Immature Gran % (Auto) 0.2 % Neut % (Auto) 93.3 % Lymph % (Auto) 4.5 % Fannin % (Auto) 1.4 % Eos % (Auto) 0.6 % Baso % (Auto) 0.0 % Neut # (Auto) 4.73 (1.4-6.5) K/uL Lymph # (Auto) 0.23 L (1.2-3.4) K/uL Fann[place] # (Auto) 0.07 L (0.11-0.59) K/uL Eos # (Auto) 0.03 (0-0.5) K/uL Baso # (Auto) 0.00 (0-0.2) K/uL Immature Gran # (Auto) 0.01 (0.00-0.02) K/uL Platelet Estimate Decreased L (Normal) Poikilocytosis Present PT 22.4 H (9.0-12.0) Seconds INR 2.4 H (0.9-1.1) Sodium (136-145) mmol/L Potassium (3.5-5.1) mmol/L Chloride (98-107) mmol/L Carbon Dioxide (21-32) mmol/L Anion Gap (3-11) BUN (7-18) mg/dl Creatinine (0.6-1.4) mg/dl Est Cr Clr Drug Dosing ml/min Est GFR ( Amer) ml/min Est GFR (Non-Af Amer) ml/min BUN/Creatinine Ratio (10-20) Glucose (70-99) mg/dl POC Glucose (70-99) mg/dl Estimat Average Glucose mg/dl Hemoglobin A1c (4.5-5.6) % Calcium (8.5-10.1) mg/dl Urine Color Urine Appearance (Clear) Urine pH (4.5-7.5) Ur Specific [place] (1.000-1.030) Urine Protein (Negative) Urine Glucose (UA) (Negative) Urine Ketones (Negative) Urine Blood (Negative) Urine Nitrite (Negative) Urine Bilirubin (Negative) Urine Urobilinogen (Negative) Ur Leukocyte Esterase (Negative) Urine WBC (Auto) (0-5) /hpf Urine RBC (Auto) (0-4) /hpf U Hyaline Cast (Auto) (0-5) /lpf U Epithel Cells (Auto) (0-5) /lpf Urine Bacteria (Auto) (Negative) Urine Crystals Calcium Oxalate Crystal (None Prsent) Amorphous Sediment (None Prsent) COVID-19 Eval Order SARS-CoV-2 (PCR) (Negative) Diagnostic Findings KUB: 1. Urinary calculi on prior CT not visualized on this exam. These are likely obscured by stool. 2. No evidence for a bowel obstruction. Moderate amount of stool. 3. Cholelithiasis.
--- NOTE | 2021-04-23 13:05 | Pharmacy Report ---
Pharmacy Glycemic Short Note 2 - Date of Service April 23, 2021 - Glycemic Short BSG Results (Last 24 hours): 04/22/21 04/23/21 04/23/21 18:14 05:11 05:13 Glucose 195 H POC Glucose 334 H* 358 H* 04/23/21 04/23/21 04/23/21 08:05 09:16 12:18 Glucose POC Glucose 317 H* 270 H 299 H OUTPATIENT ANTIDIABETIC REGIMEN: * Tresiba 12 units HS * Humalog 11/01/11 with CF of 50 over 200 mg/dL ASSESSMENT: * Mr Mendez is a 75 y/o M with a PMH of T1DM who presents with COPD flare. Patient is started on prednisone 40 mg daily TODAY. * Patient was NPO this morning and transitioned to diet. * BSG this morning was 334 and 317 mg/dL due to PM Lantus late administration (should have taken 04/22 PM but given 04/23 @0527) * 0900 check showed BSG was moving downwards. * Patient has previously been admitted with steroids and BSGS can become rapidly elevated. * Utilize tighten CR and looser CF to prevent overcorrection. * Will add NPH tomorrow. PLAN FOR INPATIENT GLYCEMIC CONTROL: * Basal insulin * Lantus 12 units SQ HS * Bolus insulin * NovoLog per scale ACHS or Q6hrs while NPO * Goal Range: Low 110 mg/dL - High 140 mg/dL * Correction Factor: 35 mg/dL/unit * Nutritional / Prandial insulin per carb ratio of 1 unit per 7 grams CHO consumed PLAN FOR DISCHARGE: * Continue to follow-up with outpatient endocrinology.
[2021-04-23] MEDS: INSULIN ASPART 100 UNITS/ML 3 ML PEN SC SCH ×3 (13:29→20:54)
[2021-04-23] MEDS ORDERED: ACETAMINOPHEN 500 MG TAB PO ONE (17:30)
--- NOTE | 2021-04-23 18:15 | Billing Data ---
Date of Service April 23, 2021 Coding Level of Care Code 23384 Subseq Obs Care Lvl 3
--- NOTE | 2021-04-23 18:16 | Hospitalist Progress Note ---
Date of Service April 23, 2021 Assessment & Plan Admission and Anticipated Discharge Date Admission Date: April 22, 2021 Results & Data Results & Data ([facility]) Vital Signs (Past 12 Hours) Vital Signs Temp Pulse Resp BP Pulse Ox 04/23/21 17:47 97.7 F 78 16 106/58 L 97 04/23/21 15:19 97.9 F 99 H 18 101/57 L 96 04/23/21 15:08 72 16 97 04/23/21 11:16 72 16 95 04/23/21 07:33 98.1 F 80 18 105/58 L 94 04/23/21 07:24 72 16 94 PG Care Time/CCT Total # of Minutes Spent Total Time Spent with Patient: Total time spent is greater than 50% in coordination of care (as documented) at patient's floor/unit and/or counseling patient: Coding Level of Care Code None CPT Codes Musculoskeletal - Musculoskeletal: [address] 1-2 Body regions ([id number])
[2021-04-23] MEDS ORDERED: WARFARIN SOD 2 MG TAB PO ONE (18:45)
--- NOTE | 2021-04-23 19:32 | Billing Data ---
Date of Service April 23, 2021 Coding Level of Care Code 16657 Initial Inpt Care Lvl 3
[2021-04-23] MEDS: ACETAMINOPHEN 500 MG TAB PO SCH (20:57)
[2021-04-24] MEDS: ALBUTEROL 0.083% NEBU SOLN 3 ML VIAL INH SCH ×3 (07:06→15:05)
[2021-04-24 07:54] LABS: Hematocrit (blood only) 30.2 % (42-52); Mean Corpuscular Hemoglobin 31.4 pg (25-34); Mean Corpuscular Hgb Conc 33.1 g/dL (32-36); Mean Platelet Volume 12.2 fL (7.4-10.4); Platelet Count 115 K/uL (130-400); RDW Coefficient of Variation 14.6 % (11.5-14.5); RDW Standard Deviation 50.8 fL (36.4-46.3); Red Blood Count 3.18 M/uL (4.7-6.1); White Blood Count 4.34 K/uL (4.8-10.8)
[2021-04-24 07:58] LABS: INR 1.6 (0.9-1.1); Prothrombin Time 15.7 Seconds (9.0-12.0)
--- NOTE | 2021-04-24 08:00 | Hospitalist Progress Note ---
Date of Service April 24, 2021 Assessment & Plan Admission and Anticipated Discharge Date Admission Date: April 22, 2021 Results & Data Results & Data ([facility]) Vital Signs (Past 12 Hours) Vital Signs Temp Pulse Pulse Resp BP Pulse Ox 04/24/21 07:37 36.6 C 79 16 111/61 96 04/24/21 07:06 77 17 94 04/24/21 02:51 36.9 C 80 18 108/62 95 04/24/21 01:36 93 H 04/23/21 22:35 36.6 C 90 16 114/55 L 95 04/23/21 20:10 90 20 96
[2021-04-24 08:08] LABS: Basophils # (auto) 0.01 K/uL (0-0.2); Basophils % (auto) 0.2 %; Eosinophils # (auto) 0.03 K/uL (0-0.5); Eosinophils % (auto) 0.7 %; Immature Granulocytes # (auto) 0.01 K/uL (0.00-0.02); Immature Granulocytes % (auto) 0.2 %; Lymphocytes # (auto) 0.41 K/uL (1.2-3.4); Lymphocytes % (auto) 9.4 %; Monocytes # (auto) 0.42 K/uL (0.11-0.59); Monocytes % (auto) 9.7 %; Neutrophils # (auto) 3.46 K/uL (1.4-6.5); Neutrophils % (auto) 79.8 %
[2021-04-24] MEDS: UMECLIDINIUM BROMIDE 62.5MCG/BLISTER 7 PUFFS/INHALER INH SCH (08:10)
[2021-04-24] MEDS: FLUTICASONE/VILANTEROL 100/25MCG 14 PUFFS/INHALER INH SCH (08:10)
[2021-04-24] MEDS: DICLOFENAC SOD 1% GEL 100 GM TUBE EXT SCH ×6 (08:10→17:08)
[2021-04-24] MEDS: FLUCONAZOLE 100 MG TAB PO SCH (08:11)
[2021-04-24] MEDS: CALCITONIN SALMON NA 200 IU/AC 3.7 ML BTL SCH (08:11)
[2021-04-24] MEDS: DULoxetine HCL 60 MG CAP PO SCH (08:11)
[2021-04-24] MEDS: guaiFENesin 600 MG TABCR PO SCH (08:11)
[2021-04-24] MEDS: ACETAMINOPHEN 500 MG TAB PO SCH ×2 (08:11→13:28)
[2021-04-24] MEDS: TOPIRAMATE 100 MG TAB PO SCH (08:11)
[2021-04-24] MEDS: predniSONE 20 MG TAB PO SCH (08:11)
[2021-04-24] MEDS: AZITHROMYCIN 250 MG TAB PO SCH (08:11)
[2021-04-24] MEDS: ASPIRIN 81 MG ECTAB PO SCH (08:11)
[2021-04-24] MEDS: FEXOFENADINE HCL 180 MG TAB PO SCH (08:11)
[2021-04-24] MEDS: LIDOCAINE 5% 1 PATCH TD SCH (08:12)
[2021-04-24] MEDS: AMOXICILLIN/CLAVULANATE 875 MG TAB PO SCH ×2 (08:12→17:06)
[2021-04-24] MEDS: FUROSEMIDE 20 MG TAB PO SCH (08:12)
[2021-04-24] MEDS: PANTOprazole 40 MG in SYRINGE 0 ML IV SCH (08:12)
[2021-04-24] MEDS: PREGABALIN 100 MG CAP PO SCH ×2 (08:15→13:28)
[2021-04-24] MEDS: POLYETHYLENE (MIRALAX) 17 GM PACK PO SCH (08:15)
[2021-04-24] MEDS ORDERED: WARFARIN SOD 2 MG TAB PO ONE (08:16)
[2021-04-24] MEDS: INSULIN ASPART 100 UNITS/ML 3 ML PEN SC SCH ×3 (08:18→17:07)
[2021-04-24 08:21] LABS: BUN Creatinine Ratio 26.4 (10-20); Calcium 8.3 mg/dl (8.5-10.1); Creatinine Clr Calc Pharmacy 62.1 ml/min; Est GFR (African American) 101.7 ml/min; Est GFR (Non-African American) 87.7 ml/min; Potassium 3.6 mmol/L (3.5-5.1)
[2021-04-24] MEDS ORDERED: INSULIN HUMAN NPH SC SCH ×2 (09:00)
[2021-04-24] MEDS ORDERED: DOCUSATE SODIUM 100 MG CAP PO SCH (09:00)
--- NOTE | 2021-04-24 11:36 | Pharmacy Report ---
Pharmacy Glycemic Short Note 2 - Date of Service April 24, 2021 - Glycemic Short BSG Results (Last 24 hours): 04/23/21 04/23/21 04/23/21 12:18 20:28 20:29 Glucose POC Glucose 299 H 458 H* 433 H* 04/24/21 04/24/21 04/24/21 07:23 07:48 11:26 Glucose 274 H POC Glucose 270 H 268 H OUTPATIENT ANTIDIABETIC REGIMEN: * Tresiba 12 units HS * Humalog 11/01/11 with CF of 50 over 200 mg/dL ASSESSMENT: 04/24 * Patient received total of 52 units of insulin yesterday, of which 16 units were basal last night (had gotten 13 units of basal early in AM to make up for 04/22 dose that was missed) * BSGs trending up significantly yesterday with steroids, plan to add NPH ~0.3 units/kg this AM * Will continue home dose of basal at HS 04/23 * Mr Mendez is a 75 y/o M with a PMH of T1DM who presents with COPD flare. Patient is started on prednisone 40 mg daily TODAY. * Patient was NPO this morning and transitioned to diet. * BSG this morning was 334 and 317 mg/dL due to PM Lantus late administration (should have taken 04/22 PM but given 04/23 @0527) * 0900 check showed BSG was moving downwards. * Patient has previously been admitted with steroids and BSGS can become rapidly elevated. * Utilize tighten CR and looser CF to prevent overcorrection. * Will add NPH tomorrow. PLAN FOR INPATIENT GLYCEMIC CONTROL: * Basal insulin * NPH 18 units daily with pred 40 mg * Lantus 12 units SQ HS * Bolus insulin * NovoLog per scale ACHS or Q6hrs while NPO * Goal Range: Low 110 mg/dL - High 140 mg/dL * Correction Factor: 35 mg/dL/unit * Nutritional / Prandial insulin per carb ratio of 1 unit per 7 grams CHO consumed PLAN FOR DISCHARGE: * Continue to follow-up with outpatient endocrinology.
[2021-04-24] MEDS ORDERED: WARFARIN SOD 4 MG TAB PO STA (14:50)
--- NOTE | 2021-04-24 15:54 | Discharge Summary ---
Date of Service April 24, 2021 Admission HPI Per Admitting Provider Mr. Mendez is a 75 yo gentleman with a complex PMHx who presented to the [facility] ED for evaluation of ongoing right low back pain. Of note, he was seen in the ED yesterday, at which time multiple stones were shown in the bladder on cat scan -his pain was attributed to recently passed kidney stones and he was sent home. However, the pain recurred. He rates it to be a 9/10 in severity; worsened with ambulation. It occasionally radiates to the groin, but never to the buttock or down the leg. He denies any associated leg weakness or numbness. Prior to the onset of the pain, he tripped and fell over tree roots in the ground (this occurred about 1 week ago). + ROS is positive for unintentional weight loss fo 10 pounds in the past month and night sweats. +burning with urination. + constipation. No fevers/chills. No CP or SOB. No cough. No nausea/vomiting or diarrhea. No fecal or urinary incontinence Social Hx: Former cigarette smoker, quit > 30 years ago; smokes a pipe everyday. No etoh. Family Hx: Sister of colon cancer at age 56. Three other sisters each had breast cancer. He has never had a colonoscopy. In the ED, he was afebrile with normal vitals. His WBC was normal. His Hgb was 11.3, down from 13.4 on 04/21/21. His stool was guiac positive. His platelets were low at 121 k/ul. INR was 2.4. His BMP was normal; ALT and AST drawn 04/21/21 were WNL, however alk phos was elevated to 159. His lipase was not elevated. UA from 04/21/21 showed yeast. UA from today showed calcium oxalate crystals. COVID 19 neg. KUB showed moderate stool burden, cholelithiasis. CXR from 04/21/21 showed no active disease. A/P cat scan from 04/21/21 showed multiple stones in the bladder, evidence of stool retention. Lumbar spine radiograph from 04/21/21 showed degenerative changes of the spine. He was started on a protonix drip with bolus, given toradol 10mg IV, a milk and molasses enema and Diflucan in the ED. He did pass a BM after the enema. Principal Diagnosis Low back pain, guaiac positive stool Discharge Exam GENERAL: A&Ox3. NAD. CHEST/LUNGS: CTAB A/P. No crackles, wheezes, rales, rhonchi. HEART: RRR. No m/g/r. No carotid bruits. ABDOMEN: NT/ND, soft. BS+ x4 EXTREMITIES: No cyanosis, no clubbing, no edema SKIN: Warm and dry. No rashes. C/d/i dressings on scalp wound. PSYCHIATRIC: Euthymic affect, no SI, no pressured speech, no hallucinations Discharge Data Allergies Allergy/AdvReac Type Severity Reaction Status Date / Time clonazepam AdvReac Severe SEE COMMENT Verified 04/22/21 16:38 latex AdvReac Intermediate Rash Verified 04/22/21 16:38 propoxyphene AdvReac Intermediate panic Verified 04/22/21 16:38 [From ZeinabJanice] attack Consultations 04/22/21 19:18 ED Decision to Admit Stat 04/22/21 21:17 Consult Gastroenterology Routine Procedures Performed Operation Date: 04/23/21 16:15 <No data on this case meets the specified criteria> Hospital Course (1) Low back pain: Mr. Mendez is a 75 yo M with a complex PMHx who presented for evaluation of ongoing R low back pain. Low back pain: - etiology: suspect mechanical given that discomfort started after tripping in yard and paraspinal muscle tenderness on exam. - No red flag signs - Lack of radicular symptoms makes me less suspicious of spinal nerve impingement, will defer advanced imaging at this time. - Kidney stones already passed to bladder - nephrolithiasis unlikely. - CT abdomen showing no other acute findings aside from constipation (see below) - tylenol prn. lidoderm patch and voltaren gel, and K pad - Attending provided OMT for LBP on 04/23 with significant improvement of symptoms - Instructed prior DC on stretching and proper movement mechanics Guaiac positive stools: - etiology uncertain: upper verus lower GI tract bleed. - elevated BUN would favor the former, yet patient denies UGI symptoms -protonix ggt discontinued, I will use protonix 40mg IV BID instead - patient has never had a colonoscopy - family history of colon cancer in first degree relative - associated B symptoms (unintentional weight loss, night seats) concerning for possible malignancy - elevated alk phos could suggest bony metastasis, although the degree of elevation is not exceedingly high - GI consulted: - Will arrange for this pt an outpt EGD/colonoscopy to investigate his anemia and c/o weight loss Anemia: - Stable at discharge - guiac positive stool concerning for possible GI bleed - GI consult as above Constipation: - moderate stool burden noted on CT of abdomen - enema given in ED - scheduled miralax 1 capful daily -Docusate daily Yeast UTI: - yeast noted on UA from 04/21/21 - burning upon urination reported by patient - will treat with Diflucan 200mg daily for 14 days -- continue for 12 days at DC Anticoagulated on warfarin: - due to hx of DVT and mechanical aortic valve - Restart anticoagulation on DC Lower extremity edema: - etiology uncertain: patient has history of both venous insufficiency and 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 (noted on Echo from 04/2020) - continue home dose Lasix 20mg - compression stockings CAD (coronary artery disease): - hx CAGB - Severe atherosclerotic calcifications are seen of the heart on CT of abdomen - continue ASA - unclear why patient is not on a high intensity statin, beta merline or GREGORY/ARB -- defer to PCP Diabetes type 1, uncontrolled: - a1c above goal at 9.5 in 12/2020 - repeat a1c - SSI in hospital - not on a high intensity statin, reason unclear, consider adding Kidney stones: - noted on recent imaging in bladder, 1 non-obstructing left sided stone - appear to be calcium oxalate in origin based on UA - discuss low Na diet and hydration with patient for prevention COPD (chronic obstructive pulmonary disease): - he is currently being treated for an acute exacerbation by outpatient provider - continue home inhalers (Symbicort, Incurse Ellipta and Albuterol) - continue Augmetin, Zpak and prednisone - continue mucinex - baseline oxygen requirement of 2L via NC Thrombocytopenia: - platelets at 121 k/Ul - chronic finding Compression fracture: - thoracic - continue intranasal calcitonin Dispo: Home, self care Code: DNR,DNI, (2) Guaiac positive stools: (3) Constipation: (4) Yeast UTI: (5) Anticoagulated on warfarin: (6) Lower extremity edema: (7) CAD (coronary artery disease): (8) Diabetes type 1, uncontrolled: (9) Kidney stones: (10) COPD (chronic obstructive pulmonary disease): (11) Anemia: (12) Thrombocytopenia: (13) Compression fracture: Total Time Total Time Spent Total Time Spent (In Minutes): <30 Discharge Plan Discharge Items Patient Disposition: Home - Self-Care Reason For Visit: BACK PAIN Discharge Diagnosis: Low back pain Activity: Per Instructions section Non-emergency contact: Primary Care Provider and Electromechanical Assembly Technician Call non-emergency contact if: you have any medication questions and your symptoms worsen Follow-up/Referrals: Rajeev Alicea, [Primary Care Provider] - Diet: Carb Count or DM1 and Heart Healthy Addtl Attending Provider Instructions: You were admitted to [facility] due to severe low back pain. This was found to be due to biomechanical causes and not any sort of new fracture or disc issues. As such, we recommend regular stretching, xtgn-eic-iocryzl pain medication as needed, and strengthening of your abdominal muscles. Additional to your back issues, your stool was found to have occult blood in it. As such, you were evaluated by gastroenterology, who recommended a colonoscopy in the outpatient setting. Please follow up with the labeler for this. We will also treat a urinary infection caused by yeast. As such you will take a medication called Diflucan for a total of two weeks. We will send the remaining treatment course to your pharmacy. We recommend you follow up with your PCP for further back pain recommendations and general medical care. Pending Studies at Discharge: No Stand-Alone Forms: My [facility], [facility], Smoking Cessation Medications and DC Order Prescriptions: New fluconazole 100 mg Tablet 200 mg PO QAM 12 Days Qty: 24 RF: 0 Continued azithromycin [Zithromax] 250 mg tablet 250 mg PO DAILY RF: 0 (DME) Oxygen Home Liters Per Minute See Rx Instructions .MEDSUPPLY Qty: 1 RF: 0 (DME) OneTouch Ultra Blue Test Strip Strip See Rx Instructions .ROUTE .MEDSUPPLY Qty: 100 RF: 6 Breztri Aerosphere 160-9-4.8 mcg/actuation HFA aerosol inhaler 2 inh inhalation BID Qty: 10.7 RF: 5 (DME) insulin syringe-needle U-100 [BD Insulin Syringe Ultra-Fine] 0.3 mL 31 gauge x 5/16" syringe See Rx Instructions .ROUTE .MEDSUPPLY Qty: 100 RF: 0 albuterol sulfate [ProAir HFA] 90 mcg/actuation HFA aerosol inhaler 2 puff INH Q6H PRN (Reason: shortness of breath or wheezing) Qty: 1 RF: 5 lidocaine [Lidoderm] 5 % adhesive patch,medicated 1 patch TOP DAILY PRN (Reason: pain. diabetic neuropathy.) Qty: 30 RF: 0 terbinafine HCl 250 mg tablet 250 mg PO DAILY Qty: 30 RF: 0 amoxicillin-pot clavulanate [Augmentin] 875-125 mg tablet 1 tab PO Q12H Qty: 20 RF: 0 aspirin [Adult Low Dose Aspirin] 81 mg tablet,delayed release (DR/EC) 81 mg PO QAM RF: 0 (DME) Dexcom G6 Hourly Sign Language Interpreter Misc See Rx Instructions .MEDSUPPLY Qty: 1 RF: 0 (DME) Dexcom G6 Sensor Device See Rx Instructions .MEDSUPPLY Qty: 3 RF: 11 (DME) Dexcom G6 Transmitter Device See Rx Instructions .MEDSUPPLY Qty: 1 RF: 3 pregabalin [Lyrica] 200 mg capsule 200 mg PO TID Qty: 90 RF: 1 Fluzone HighDose Quad 21-22 PF 240 mcg/0.7 mL syringe 0.7 ml IM ONCE Qty: 0.7 RF: 0 furosemide 20 mg tablet 20 mg PO DAILY Qty: 30 RF: 5 Tresiba FlexTouch U-100 100 unit/mL (3 mL) insulin pen 13 unit SQ HS RF: 0 duloxetine [Cymbalta] 60 mg capsule,delayed release(DR/EC) 60 mg PO QAM RF: 0 acetaminophen 500 mg Tablet 500 mg PO TID PRN (Reason: Pain) RF: 0 oxycodone 5 mg tablet 5 mg PO DIRECTED PRN (Reason: Pain) RF: 0 topiramate [Topamax] 100 mg tablet 100 mg PO BID RF: 0 albuterol sulfate 2.5 mg /3 mL (0.083 %) solution for nebulization 2.5 mg inhalation QID RF: 0 Novolin N NPH U-100 Insulin 100 unit/mL suspension 12 unit SC DAILY PRN (Reason: WHEN TAKES PREDNISONE) RF: 0 fexofenadine [Flora Allergy] 180 mg Tablet 180 mg PO QAM RF: 0 warfarin [Jantoven] 4 mg Tablet See Rx Instructions mg .ROUTE .COMPLEX RF: 0 insulin lispro [Humalog U-100 Insulin] 100 unit/mL Solution 1 sliding scale dose SUBCUT TIDM RF: 0 Mucinex 1,200 mg Tablet Extended Release 12hr 1,200 mg PO BID RF: 0 prednisone 10 mg tablet 40 mg PO DAILY RF: 0 lorazepam [Ativan] 0.5 mg tablet 0.5 mg PO Q6H PRN (Reason: anxiety) RF: 0 calcitonin (salmon) 200 unit/actuation spray,non-aerosol 1 spray intranasal (ALT) QAM RF: 0 sodium chloride [Pulmosal] 7 % solution for nebulization 4 ml inhalation BID RF: 0 Discharge Orders: Discharge Order (Routine); Ordered 04/24/21 Ordered By: Thee Kilpatrick/Other Patient Handouts: High Blood Sugar (Hyperglycemia), Managing Type 1 Diabetes Admission Data Admit Date/Time: 04/23/21 14:55 Attending Provider: Javier Donovan Admit Provider: Mary Reardon Primary Care Provider: Rajeev Alicea Other Providers: Aris Diaz ; Viv Rodriguez Other Interventions: Discharge Summary Assessment (RN) Last Done: 04/24/21 15:16 Supervising Physician Co-Signing Physician Notes I personally examined the patient and verified all casillas points of history and exam, discussed case, and agree with decision making with Dr Mercado. Overall feeling better. Back pain better. Breathing at baseline more or less. No difficulty eating or drinking, no overt GI bleeding. Dysuria improving. Vitals noted, in general he is awake and alert pleasant no distress. HEENT normocephalic atraumatic mucous membranes moist. Breathing unlabored no accessory muscle use good effort. Skin shows no rashes no pallor or icterus. N euro without focal deficits. Back paindespite the kidney stones, actually appears to be biomechanical. Voltaren gel to the area 4 times daily, and OMT appears to have helped. Stretches outlined. Stable for home. Dysurialikely kidney stones plus or minus yeaststable for home, finish course of treatment for yeast UTIDiflucan see above Anemiapossible GI bleedingbut does not appear to overtly to be suffering from any kind of a hemorrhage, for endoscopic work-up as an outpatient. Patient thought he had a hard contraindication to colonoscopy due to his aortic valve replacementdiscussed with patient that it should be feasible, just with more preplanning, obviously a bit more risk, and the cumbersome necessity of bridging anticoagulation. Outpatient follow-up in this regard. Anticoagulated on Coumadinfor mechanical aortic valveINR slightly low, given additional Coumadin, he has an ability to check INR at home. Given that he did have some degree of GI bleeding, currently I would hesitate to bridge with Lovenox for a mildly subtherapeutic INR in a patient who is going to be able to quickly get his INR up to therapeutic, with a mechanical aortic valve, given that the potential risk of bleeding right now, when he may have just been bleeding, is likely higher than it normally would be, and likely higher than the risk of any thrombotic complications from slightly subtherapeutic INR w AVR Otherwise as above Resident Activity Tracking Resident Involvement: Resident Care Provided Care Provided: Adult Hospital Medicine
--- NOTE | 2021-04-24 17:11 | Billing Data ---
Date of Service April 24, 2021 Coding Level of Care Code D/C DAY MANAGEMENT <30 MINS
[2021-04-24] MEDS ORDERED: INSULIN GLARGINE SOLOSTAR 100 UNITS/ML 3 ML PEN SQ SCH (21:00)
== END 2021-04-24 17:51 | disposition home or self-care (01) | DRG 552 ==
LOC: 3N 14:35 → ED 14:35 → SUATTDRO 21:00 → 3N 23:03 → 2N 04-23 14:55